=== PATIENT | female | born 1975 | race Caucasian/White ===

== ENCOUNTER 2021-08-14 10:32 | Emergency (ER) | payer SELFPAY ==
[2021-08-14 10:33] VITALS: BP 160/84; PULSE 93; RESP 16; TEMP 37; O2SAT 99; BMI 21.7
--- NOTE | 2021-08-14 11:16 | RAD_ITS ---
STUDY: X-RAY - RIGHT KNEE REASON FOR EXAM: Female, 46 years old. Injury/Pain TECHNIQUE: 4 view(s) of the knee. COMPARISON: None. FINDINGS: Normal visualized distal femur. Normal visualized proximal tibia and fibula. Normal proximal tibiofibular articulation. Normal medial femorotibial compartment. Normal lateral femorotibial compartment. Normal patellofemoral articulation. The soft tissue structures are unremarkable. RAD/Knee 4 or More Views IMPRESSION: Normal x-ray examination of the knee. Electronically Signed: Farhan Doyle MD at 12:21 EST ,
[2021-08-14] MEDS: HYDROcodone Bitartrate/Apap 5/325 Tablet PO (12:53)
--- NOTE | 2021-08-14 13:16 | EDS_ITS ---
HPI History of Present Illness HPI Narrative: Patient presents with right knee pain that began after a fall today. Patient states she slipped on the ice and her right knee hyperflexed and was under her when she fell. Patient states the pain is sharp, stabbing, and throbbing. Patient states her pain is worse with weightbearing. Patient states she has been unable to bear any weight since the fall. Patient states nothing seems to help with the pain. Patient denies any paresthesias or weakness. Patient denies any other injuries. Patient denies any head injury or loss of consciousness. Chief Complaint: Lower Extremity Injury Informant: patient Occured/Mechanism Mechanism/Context: Yes fall Onset/Context/Timing Onset: Today Context: Sudden Onset Timing: Continuous Quality of Pain: Sharp, Stabbing and Throbbing Location: Right knee Worsened by: Weightbearing and movement Relieved by: Nothing Associated Symptoms Associated Symptoms: Negative for Parasthesia, Weakness and Loss of Funtion PFSH PFSH Medical History (Updated 08/14/21 @ 18:[address] Sanju Shi DO) Hypertension Medical History no medical history Home Medications hydrocodone-acetaminophen 1 tab PO Q6H PRN PRN 3 Days #10 tablet 08/14/21 [Rx Last Taken Unknown] Allergy/AdvReac Type Severity Reaction Status Date / Time morphine Allergy Hives Verified 08/14/21 10:44 nitrofurantoin Allergy Hives Verified 08/14/21 10:44 [From Macrobid] Family History no significant family his Surgical History (Updated 08/14/21 @ 18:[address] Sanju Shi DO) History of back surgery Surgical History no surgical history Social History Smoking Status: Current every day smoker tobacco type: cigarettes ROS ROS ED Constitutional Constitutional ED: Denies chills or fever(s) Eyes Eyes: Denies blurry vision or change in vision ENT ENT ED: Reports rhinorrhea; Denies sore throat Cardiovascular Cardiovascular: Denies chest pain or palpitations Respiratory/Chest Respiratory/Chest: Denies cough or dyspnea Gastrointestinal Gastrointestinal: Denies nausea or vomiting Genitourinary Genitourinary ED: Denies dysuria or hematuria Musculoskeletal Musculoskeletal: Denies back pain or neck pain Integumentary Denies abscess or rash Neurologic Neurologic: Denies headache(s) or weakness Allergic/Immunologic Allergic/Immunologic ED: Denies mouth swelling or urticaria EXAM Physical Exam Const Vital Signs: 08/14/21 10:33 08/14/21 13:40 Temperature 98.6 F 98.4 F Temperature Source Oral Pulse Rate 93 90 Respiratory Rate 16 18 Blood Pressure 160/84 H 142/78 H Blood Pressure Mean 109 Pulse Ox 99 99 Oxygen Delivery Method Room Air Positive well nourished and well developed General Appearance ED: well developed and NAD HEENT Reports moist mucous membranes Neck full ROM and supple Extremity Extremity Narrative: There is tenderness over the anterior aspect of the right knee. There is also tenderness of the medial aspect of the right knee. There is no effusion. There is a superficial abrasion over the anteromedial aspect of the right knee. Range of motion was limited in all motions of the right knee secondary to pain. Extensor mechanism is intact. There is no laxity appreciated however, there is a lot of guarding on exam. There is good pedal pulse noted. Sensation was intact to light touch bilaterally in the lower extremities. Strength is 5/5 bilaterally in the lower extremities. Neuro oriented x3, CN's II-XII intact bilaterally, moves all extremities and no sensory deficits noted Sensorium / Orientation: alert Motor Exam: strength 5/5 throughout Psych mental status grossly normal MDM MDM MDM Narrative Medical decision making narrative: X-rays of the right knee were obtained. There are 4 views. On my interpretation, there is no acute fracture. There is no dislocation. There is no soft tissue swelling. There is no effusion noted. Radiologist also interpreted the x-rays and agrees. Patient was given a dose of [place] here. Patient was given a knee immobilizer. Patient was given crutches. Patient was instructed to ice and elevate her right knee. Patient was instructed to follow-up with her primary care physician in 3 to 5 days. Patient understood and was agreeable with the plan. All questions were answered. Radiography Diagnostic Testing: Clinical Impression(s) from Imaging Studies Knee X-Ray 08/14/21 11:16 IMPRESSION: Normal x-ray examination of the knee. Electronically Signed: Farhan Doyle MD at 12:21 EST , Discharge Plan Triage Chief Complaint: Lower Extremity Injury ED Provider: Sanju Shi Dx/Rx/DC Orders Clinical Impression: Sprain of right knee Instructions: ED Knee Sprain Prescriptions: New hydrocodone-acetaminophen [hydrocodone-acetaminophen] 1 TABLET tablet 1 tab PO Q6H PRN PRN (Reason: Pain) 3 Days Qty: 10 RF: 0 Referrals: RICHIE HUNT [Other] - 3-5 Days Disposition Disposition: Home, Self Care Discharge Date/Time: 08/14/21 13:41
[2021-08-14 13:40] VITALS: BP 142/78; PULSE 90; RESP 18; TEMP 36.9; O2SAT 99
== END 2021-08-14 13:41 | disposition home or self-care (01) ==
PROVIDERS: Emergency Provider Emergency Medicine; Visit Provider Emergency Medicine
DX: S83.91XA Sprain of unspecified site of right knee, initial encounter (principal); F17.210 Nicotine dependence, cigarettes, uncomplicated; W00.9XXA Unspecified fall due to ice and snow, initial encounter
CPT/HCPCS: 73564; 99285

== ENCOUNTER → 2022-10-07 | Outpatient (CLI) | payer BC, SELFPAY | END | disposition home or self-care (01) | LOC: LABSPEC 15:10 | PROVIDERS: Referring Provider Otolaryngology; Visit Provider Otolaryngology | DX: J32.8 Other chronic sinusitis (principal) | CPT/HCPCS: 87070; 87205 ==

== ENCOUNTER 2022-10-15 13:09 | Emergency (ER) | payer BC, SELFPAY ==
[2022-10-15 13:10] VITALS: BP 162/83; PULSE 100; RESP 18; TEMP 36.1; O2SAT 100; BMI 18.6
--- NOTE | 2022-10-15 14:46 | ED.VIS.LOWEX ---
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 She is presenting with worsening left hip pain and difficulty walking because of this. Has taken some Tylenol today with no relief of her symptoms. Notes the pain has been worsening for the past week. Denies any injury or falls. Notes she does do a lot of heavy lifting and twisting associated with work. Denies any new numbness or tingling. Denies any urinary symptoms. [place] any fever or chills. Denies associated rash. No other complaints at this time [facility] Medical History Hypertension Home Medications hydrocodone-acetaminophen 5-325mg 5mg-325mg 1 tab PO Q6H PRN PRN Pain 3 days #10 TABLETS 08/14/21 [Rx Last Taken Unknown] prednisone 20 mg tablet 40 mg PO DAILY #10 tabs 10/15/22 [Rx Last Taken Unknown] Allergy/AdvReac Type Severity Reaction Status Date / Time morphine Allergy Hives Verified 10/15/22 13:12 nitrofurantoin Allergy Hives Verified 10/15/22 13:12 [From Macrobid] Surgical History History of back surgery Social History Smoking Status: Current every day smoker tobacco type: cigarettes ROS ROS ED Constitutional Constitutional ED: Denies chills or fever(s) Eyes Eyes: Denies change in vision Respiratory/Chest Respiratory/Chest: Denies cough Gastrointestinal Gastrointestinal: Denies abdominal pain, diarrhea, nausea or vomiting Genitourinary Genitourinary ED: Denies dysuria or urinary frequency Musculoskeletal Musculoskeletal: Reports other Details: left hip pain Integumentary Denies rash Neurologic Neurologic: Reports paresthesias LUE (chronic) Psychiatric Psychiatric: Denies anxiety EXAM Physical Exam Const Vital Signs: 10/15/22 13:10 Temperature 97 F L Temperature Source Temporal Pulse Rate 100 Respiratory Rate 18 Blood Pressure 162/83 H Blood Pressure Mean 109 Pulse Ox 100 Oxygen Delivery Method Room Air Positive well nourished and well developed General Appearance ED: well developed and NAD HEENT Reports moist mucous membranes; Denies other Negative for other Eyes PERRL Neck supple Chest Wall inspection of chest normal Resp normal respiratory effort and clear to auscultation bilaterally Cardio regular rate and regular rhythm Cardio Narrative: 2= PT pulses GI non-tender and non-distended Extremity normal to inspection Extremity Narrative: No obvious deformity. No peripheral edema. Pain with palpation of the left greater trochanter and with range of motion of the hip. Normal range of motion of the knee. Pain does not radiate with this. Neuro oriented x3 and moves all extremities Neuro Narrative: Chronic paresthesias of the left lower extremity, no acute change for patient Sensorium / Orientation: alert Motor Exam: Negative for general weakness Psych mental status grossly normal Skin Lesions: no lesions MDM MDM MDM Narrative Medical decision making narrative: Patient evaluated for atraumatic left hip pain. Differential includes occult fracture, hip strain and bursitis. Will obtain an x-ray. She has good distal pulses. No acute neurologic symptoms. She does not have any edema or risk factors for DVT and I do not think venous duplex is indicated at this time. No symptoms consistent with cauda equina syndrome. X-ray interpreted myself as well as radiology does not show any acute process. Patient will be ambulated in the ER. Will be treated conservatively as a bursitis. Over the is on steroids. Given a work note so she can rest over the weekend before returning to work on Tuesday. Counseled to use ice. Does have an orthopedist that she will follow-up with. Counseled to continue taking Tylenol and only take ibuprofen for breakthrough pain while she is on steroids. Patient discharged home in stable condition. Radiography Diagnostic Testing: Clinical Impression(s) from Imaging Studies Hip/Pelvis X-Ray 10/15/22 14:55 IMPRESSION: No evidence of acute fracture or dislocation. If patient has nonweightbearing recommend MRI imaging to exclude occult findings. Electronically Signed: Trey Wyman DO at 15:11 EDT , Discharge Plan Triage Chief Complaint: Lower Extremity Injury ED Provider: Amy Sen Dx/Rx/DC Orders Clinical Impression: Bursitis of left hip Instructions: ED Bursitis Prescriptions: New prednisone 20 mg tablet 40 mg PO DAILY Qty: 10 0RF No Action hydrocodone-acetaminophen [hydrocodone-acetaminophen] 1 TABLET tablet 1 tab PO Q6H PRN PRN (Reason: Pain) 3 Days Qty: 10 0RF Primary Care Provider: NOT,DEFINED Referrals: NOT,DEFINED [Primary Care Provider] - Activity Restrictions/Additional Instructions: Ice the area. Follow-up with your orthopedist. Take Tylenol regularly and then ibuprofen for breakthrough pain. Disposition Disposition: Home, Self Care
--- NOTE | 2022-10-15 14:55 | RAD_ITS ---
STUDY: X-RAY - PELVIS AND LEFT HIP REASON FOR EXAM: Female, 47 years old. pain TECHNIQUE: 3 views of the pelvis and hip. COMPARISON: None. FINDINGS: There is a non-specific bowel gas pattern. Normal visualized soft tissue structures. Normal bilateral iliac wings, sacroiliac joints and visualized sacrum. Normal bilateral superior and inferior pubic rami. Normal pubic symphysis. Normal bilateral ischial tuberosities. Normal visualized femoral head. Normal acetabulum. There is mild articular joint space narrowing of the hip. RAD/HIP, UNI W/ Pelvis 2-3 Views IMPRESSION: No evidence of acute fracture or dislocation. If patient has nonweightbearing recommend MRI imaging to exclude occult findings. Electronically Signed: Trey Wyman DO at 15:11 EDT ,
[2022-10-15] MEDS: Ibuprofen 200 MG Tablet 400 MG PO (15:40)
== END 2022-10-15 15:58 | disposition home or self-care (01) ==
PROVIDERS: Emergency Provider Emergency Medicine; Visit Provider Emergency Medicine
DX: M70.72 Other bursitis of hip, left hip (principal); F17.210 Nicotine dependence, cigarettes, uncomplicated
CPT/HCPCS: 73502; 99282

== ENCOUNTER 2023-02-11 12:24 | Emergency (ER) | payer BC, SELFPAY ==
[2023-02-11 12:25] VITALS: BP 169/88; PULSE 110; RESP 18; TEMP 36.1; O2SAT 97; BMI 20.2
== END 2023-02-11 13:34 | disposition left against medical advice (07) ==
LOC: ED 13:41
DX: Z53.21 Procedure and treatment not carried out due to patient leaving prior to being seen by health care provider (principal)

== ENCOUNTER 2023-08-02 22:20 | Emergency (ER) | payer MEDICAID, SELFPAY ==
[2023-08-02 22:22] VITALS: BP 165/94; PULSE 78; RESP 16; TEMP 36.5; O2SAT 100; BMI 20.1
[2023-08-02 22:24] VITALS: BP 165/94; PULSE 78; RESP 16; TEMP 36.5; O2SAT 100
--- OUTSIDE RECORDS SUMMARY | 2023-08-02 22:39 | XMS RPT_ITS | CCD ---
Author Name Unknown Address [address] [place] [address] Organization [facility] Care Team Providers Care Bin Packer Name Role Phone CARMEN UMAÑA Referring Unavailable NOLAN FAIRBANKS (PAC) Referring Unavaila Mark Buchanan Primary Care Provider Paulino MORALES Richie N Primary Care Provider Mark Mancilla MD Primary Care Provider Paulino MORALES, Richie N Primary Care Provider Paulino MORALES, Richie N Primary Care Provider [phone] [place] CARMEN, Richie N Primary Care Provider [phone] MIKE IBRAHIM Attending Unavaila ble PAULINO, RICHIE N Primary Care Unavailable PAULINO, RICHIE N Primary Care Unavailable MIKE IBRAHIM Attending Unavaila ble PAULINO, RICHIE N Primary Care Unavailable PAULINO, RICHIE N Primary Care Unavailable PAULINO, RICHIE N Referring Unavailable PAULINO, RICHIE N Primary Care Unavailable PAULINO, RICHIE N Referring Unavailable PAULINO, RICHIE N Primary Care Unavailable PAULINO, RICHIE N Referring Unavailable PAULINO, RICHIE N Primary Care Unavailable PAULINO, RICHIE N Attending Unavailable PAULINO, RICHIE N Primary Care Unavailable PAULINO, RICHIE N Referring Unavailable PAULINO, RICHIE N Attending Unavailable PAULINO, RICHIE N Primary Care Unavailable PAULINO, RICHIE N Referring Unavailable PAULINO, RICHIE N Attending Unavailable PAULINO, RICHIE N Primary Care Unavailable PAULINO, RICHIE N Primary Care Unavailable RICHIE BOB Attending Unavailable RICHIE BOB Primary Care Unavailable Allergies Allergy Classification Reported Allergen(s) Allergy Type Date of Onset Reaction(s) Facility (20 sources) levoFLOXacin; Translations: [LEVOFLOXACIN] Drug Allergy 07-19-19 15 Shortness Of Breath [facility] Repository (20 sources) Morphine; Translations: [MORPHINE] Drug Allergy 11-22-19 13 [facility] Repository (18 sources) Seasonal allergy; Translations: [SEASONAL ALLERGIES] Propensity to adverse reactions (disorder) 03-16-20 16 Unknown [facility] Repository (18 sources) NITROFURANTOIN MONOHYD/M-CRYST; Translations: [NITROFURANTOIN MONOHYD/M-CRYST] Propensity to adverse reactions to drug (disorder) 11-22-19 13 [facility] Repository (8 sources) Nitrofurantoin Drug Allergy 06-05-20 15 [place], [place] (8 sources) Morphine And Related Propensity to adverse reactions to drug 06-05-20 15 [place] (1 source) Other Propensity to adverse reactions 10-02-19 16 [place] (3 sources) Lisdexamfetamine; Translations: [LISDEXAMFETAMINE] Drug Allergy 08-02-19 23 Other: See Comments [facility] Work Phone: Medications Current Medications Medication Drug Class(es) Dates Sig (Normalized) Sig (Original) acetaminophen 500 mg oral tablet (6 sources) Start: 01-27-2022 acetaminophen (TYLENOL) tablet 1,000 mg Completed/Discontinued Medications Medication Drug Class(es) Dates Sig (Normalized) Sig (Original) acetaminophen 325 mg / oxyCODONE hydrochloride 5 mg oral tablet (6 sources) Opioid Agonist Start: 04-30-2020 End: 04-30-2020 oxyCODONE-acetamin ophen (PERCOCET) 5-325 MG per tablet 1 tablet Problems Active Problems Problem Classification Problem Date Documented Da te Episodic/Chronic Asthma (15 sources) Asthma; Translations: [Unspecified asthma, uncomplicated] 03-06-2019 Chronic Attention-deficit, conduct, and disruptive behavior disorders (20 sources) Attention deficit hyperactivity disorder; Translations: [Attention-deficit hyperactivity disorder, unspecified type] 06-29-2016 Chronic Attention-deficit, conduct, and disruptive behavior disorders (1 source) Attention-deficit hyperactivity disorder, unspecified type; Translations: [Attention deficit hyperactivity disorder (ADHD), unspecified ADHD type] Onset: 06-29-2016 Chronic Essential hypertension (19 sources) Hypertensive disorder; Translations: [Essential (primary) hypertension] Onset: 08-09-2018 08-09-2018 Chronic Genitourinary symptoms and ill-defined conditions (8 sources) Female stress incontinence; Translations: [Stress incontinence (female) (male)] Onset: 10-02-2015 10-02-2015 Chronic Immunizations and screening for infectious disease (2 sources) Patient encounter status; Translations: [Encounter for immunization] Episodic Inflammatory diseases of female pelvic organs (1 source) Acute vaginitis; Translations: [Acute vaginitis] 05-16-2023 Episodic Influenza (1 source) Influenza due to unidentified influenza virus with other respiratory manifestations; Translations: [Influenza] Onset: 05-21-2023 Episodic Menopausal disorders (8 sources) Menopausal flushing; Translations: [Menopausal and female climacteric states] Onset: 01-01-2016 01-01-2016 Chronic Mycoses (1 source) Candidiasis of vagina; Translations: [Vaginal yeast infection] 02-08-2023 Episodic Other acquired deformities (1 source) Spondylolisthesis, lumbar region; Translations: [Spondylolisthesis, lumbar region] Onset: 05-24-2018 Episodic Other acquired deformities (1 source) Spondylolysis; Translations: [Spondylolysis, lumbar region] Episodic Other acquired deformities (5 sources) Lumbar spondylolisthesis; Translations: [Spondylolisthesis of lumbar region] Onset: 04-11-2020 04-11-2020 Other bone disease and musculoskeletal deformities (1 source) Osteopenia; Translations: [Other specified disorders of bone density and structure, unspecified site] Episodic Other circulatory disease (1 source) Elevated blood-pressure reading without diagnosis of hypertension; Translations: [Elevated blood-pressure reading, without diagnosis of hypertension] 05-16-2023 Episodic Other connective tissue disease (1 source) History of lumbar fusion; Translations: [Arthrodesis status] Episodic Other female genital disorders (8 sources) Abnormal uterine bleeding; Translations: [Abnormal uterine and vaginal bleeding, unspecified] Onset: 10-02-2015 10-02-2015 Chronic Other nervous system disorders (1 source) Other chronic pain; Translations: [Other chronic pain] Onset: 05-02-2018 Chronic Other upper respiratory disease (15 sources) Allergic rhinitis; Translations: [Allergic rhinitis, unspecified] Onset: 02-09-2017 02-09-2017 Chronic Other upper respiratory disease (1 source) Lesion of nose; Translations: [Other specified disorders of nose and nasal sinuses] 05-16-2023 Episodic Other upper respiratory infections (5 sources) Recurrent sinusitis; Translations: [Chronic sinusitis, unspecified] Onset: 05-16-2023 Chronic Residual codes; unclassified (6 sources) Tobacco user; Translations: [Tobacco abuse] Onset: 10-02-2015 10-02-2015 Chronic Residual codes; unclassified (3 sources) Contact with and (suspected) exposure to mold (toxic); Translations: [Contact with and (suspected) exposure to mold] Onset: 05-16-2023 02-08-2023 Episodic Spondylosis; intervertebral disc disorders; other back problems (15 sources) Degeneration of lumbar intervertebral disc; Translations: [Other intervertebral disc degeneration, lumbar region] Onset: 02-09-2017 05-24-2018 Chronic Substance-related disorders (1 source) Nicotine dependence, unspecified, uncomplicated; Translations: [Tobacco use disorder] Onset: 02-17-2023 Chronic Superficial injury; contusion (3 sources) Contusion of lower back; Translations: [Contusion of lower back and pelvis, initial encounter] Onset: 04-05-2023 Episodic Viral infection (16 sources) Herpes simplex; Translations: [Herpesviral infection, unspecified] 03-01-2018 Episodic Past or Other Problems Problem Classification Problem Date Documented Da te Episodic/Chronic Abdominal pain (8 sources) Vaginal pain; Translations: [Pelvic and perineal pain] Onset: 04-26-2016 04-26-2016 Episodic Other acquired deformities (18 sources) Lumbar spondylolisthesis; Translations: [Spondylolisthesis, lumbar region] Onset: 02-28-2018 05-24-2018 Episodic Other bone disease and musculoskeletal deformities (1 source) Other specified disorders of bone density and structure, unspecified site; Translations: [Osteopenia, unspecified location] Onset: 11-08-2022 Episodic Other lower respiratory disease (1 source) Shortness of breath; Translations: [SOB (shortness of breath)] Onset: 11-08-2022 Episodic Other nervous system disorders (2 sources) Postoperative pain ; Translations: [Postoperative pain after spinal surgery] Episodic Other nervous system disorders (1 source) Paresthesia; Translations: [Paresthesias] Episodic Other screening for suspected conditions (not mental disorders or infectious disease) (2 sources) Cancer cervix screening status; Translations: [Encounter for screening for malignant neoplasm of cervix] Onset: 11-08-2022 05-16-2023 Episodic Other skin disorders (15 sources) Epidermoid cyst; Translations: [Epidermal cyst] Onset: 08-25-2015 08-25-2015 Episodic Other upper respiratory disease (15 sources) Deviated nasal septum; Translations: [Deviated nasal septum] Onset: 02-09-2017 02-09-2017 Episodic Other upper respiratory infections (1 source) Acute sphenoidal sinusitis, unspecified; Translations: [Acute sphenoidal sinusitis, recurrence not specified] Onset: 02-17-2023 Episodic Pathological fracture (16 sources) Fracture of lumbar spine; Translations: [Pathological fracture, other site, initial encounter for fracture] Onset: 06-20-2017 03-01-2018 Episodic Residual codes; unclassified (5 sources) Pain; Translations: [Pain, unspecified] Onset: 04-17-2020 04-17-2020 Episodic Residual codes; unclassified (2 sources) Tobacco user; Translations: [Tobacco use] Onset: 10-02-2015 10-02-2015 Episodic Spondylosis; intervertebral disc disorders; other back problems (20 sources) Pain in thoracic spine; Translations: [Lumbosacral radiculopathy] Onset: 02-28-2018 04-17-2020 Episodic Results Test Name Value Interpretation Reference Range Facil ity Vital Signs Date Time Vital Sign Value Performing Clinician Facility 05-16-2023 13:35-0500 Diastolic blood pressure 88 mm[Hg] Richie MENCHACA-Anthony Work Phone: [facility] 05-16-2023 13:35-0500 Systolic blood pressure 158 mm[Hg] Richie MENCHACA-Anthony Work Phone: [facility] 05-16-2023 12:44-0500 Body height 170.2 cm Richie [place] PA-C Work Phone: [facility] 05-16-2023 12:44-0500 Body temperature 97.3 [degF] Richie Paulino PA-C Work Phone: [facility] 05-16-2023 12:44-0500 Body weight 55.5 kg Richie Paulino PA-C Work Phone: [facility] 05-16-2023 12:44-0500 Heart rate 95 /min Richie Paulino PA-C Work Phone: [facility] 05-16-2023 12:44-0500 SaO2% (BldA) [Mass fraction] 100 % Richie [place] PA-C Work Phone: [facility] 07-14-2022 15:34-0500 Diastolic blood pressure 62 mm[Hg] Richie [place] PA-C Work Phone: [facility] 07-14-2022 15:34-0500 Systolic blood pressure 132 mm[Hg] Richie Paulino PA-C Work Phone: [facility] 07-14-2022 15:19-0500 Body height 170.2 cm Richie [place] PA-C Work Phone: [facility] 07-14-2022 15:19-0500 Body weight 53.07 kg Richie [place] PA-C Work Phone: [facility] 07-14-2022 15:19-0500 Heart rate 92 /min Richie Paulino PA-C Work Phone: [facility] 07-14-2022 15:19-0500 SaO2% (BldA) [Mass fraction] 99 % Richie Paulino PA-C Work Phone: [facility] 01-27-2022 08:58-0400 Diastolic blood pressure 80 mm[Hg] Brandon Fiore MD Work Phone: [facility] 01-27-2022 08:58-0400 Heart rate 85 /min Brandon Fiore MD Work Phone: [facility] 01-27-2022 08:58-0400 Respiratory rate 18 /min Brandon Fiore MD Work Phone: [facility] 01-27-2022 08:58-0400 SaO2% (BldA) [Mass fraction] 100 % Brandon Fiore MD Work Phone: [facility] 01-27-2022 08:58-0400 Systolic blood pressure 110 mm[Hg] Brandon Fiore MD Work Phone: [facility] 01-27-2022 07:24-0400 Body temperature 97.81 [degF] Brandon Fiore MD Work Phone: [facility] 12-24-2021 10:40-0400 Body weight 58.97 kg Richie Paulino PA-C Work Phone: [facility] 12-24-2021 10:40-0400 Diastolic blood pressure 80 mm[Hg] Richie [place] PA-C Work Phone: [facility] 12-24-2021 10:40-0400 Heart rate 73 /min Richie Paulino PA-C Work Phone: [facility] 12-24-2021 10:40-0400 SaO2% (BldA) [Mass fraction] 99 % Richie Paulino PA-C Work Phone: [facility] 12-24-2021 10:40-0400 Systolic blood pressure 124 mm[Hg] Richie Paulino PA-C Work Phone: [facility] 04-30-2020 01:20-0500 BMI (Body Mass Index) 21.14 kg/m2 Gloria Metzger [facility], [place] 04-30-2020 01:20-0500 Body Temperature 98.4 [degF] [facility] [place] 04-30-2020 01:20-0500 Body weight 61.24 kg Gloria [facility] , [place] 04-30-2020 01:20-0500 BP Diastolic 77 mm[Hg] [facility] [place] [facility] [place] 04-30-2020 01:20-0500 BP Systolic 134 mm[Hg] [facility] [place] [facility] [place] 04-30-2020 01:20-0500 Height 170.2 cm [facility] [place] 04-30-2020 01:20-0500 Pulse (Heart Rate) 94 /min [facility] [place] [place] 04-30-2020 01:20-0500 Pulse Oximetry 100 % [facility] [place] [facility] [place] 04-30-2020 01:20-0500 Respiratory Rate 18 /min [facility] [place] 04-18-2020 06:00-0400 Body Temperature 98.01 [degF] [facility] [place] 04-18-2020 06:00-0400 BP Diastolic 77 mm[Hg] Tono [facility] , [place] 04-18-2020 06:00-0400 BP Systolic 138 mm[Hg] Tono [facility] , [place] 04-18-2020 06:00-0400 Pulse (Heart Rate) 93 /min [facility] [place] 04-18-2020 06:00-0400 Pulse Oximetry 100 % [facility] [place] 04-18-2020 06:00-0400 Respiratory Rate 20 /min [facility] [place] 04-17-2020 01:31-0400 BMI (Body Mass Index) 21.79 kg/m2 Tono Chris [facility], [place] 04-17-2020 01:31-0400 Body weight 61.24 kg [facility] [place] 04-17-2020 01:31-0400 Height 167.6 cm [facility] [place] 04-15-2020 05:50-0400 BP Diastolic 61 mm[Hg] JONELLE [facility] , [place] 04-15-2020 05:50-0400 BP Systolic 111 mm[Hg] [facility] , [place] 04-15-2020 05:50-0400 Pulse (Heart Rate) 118 /min NA [facility] [place] 04-15-2020 05:50-0400 Pulse Oximetry 99 % NA R[facility] [place] , [place] 04-15-2020 05:50-0400 Respiratory Rate 16 /min NA [facility] [place] 04-15-2020 02:43-0400 BMI (Body Mass Index) 21.14 kg/m2 NA Rolly Kaba [facility] [place], [place] 04-15-2020 02:43-0400 Body Temperature 99.1 [degF] NA [facility] [place] 04-15-2020 02:43-0400 Body weight 61.24 kg NA [facility] [place] 04-15-2020 02:43-0400 Height 170.2 cm [facility] [place] 04-14-2020 09:16-0400 Body Temperature 98.91 [degF] [facility] [place] 04-14-2020 09:16-0400 BP Diastolic 72 mm[Hg] [facility] [place] 04-14-2020 09:16-0400 BP Systolic 124 mm[Hg] [facility] [place] 04-14-2020 09:16-0400 Pulse (Heart Rate) 111 /min [facility] [place] 04-14-2020 09:16-0400 Pulse Oximetry 100 % [facility] [place] 04-14-2020 09:16-0400 Respiratory Rate 14 /min [facility] [place] 04-11-2020 09:40-0400 BMI (Body Mass Index) 21.14 kg/m2 [facility] [place] [place] 04-11-2020 09:40-0400 Body weight 61.24 kg [facility] [place] 04-11-2020 09:40-0400 Height 170.2 cm [facility] [place] 04-04-2020 14:54-0400 BMI (Body Mass Index) 21.14 kg/m2 Marcelo Kaba [facility], [place] 04-04-2020 14:54-0400 Body Temperature 98.01 [degF] Marcel[facility] [place] 04-04-2020 14:54-0400 Body weight 61.24 kg Marcelo Kaba [facility] [place] , [place] 04-04-2020 14:54-0400 BP Diastolic 84 mm[Hg] [facility] [place] [facility] [place] 04-04-2020 14:54-0400 BP Systolic 124 mm[Hg] [facility] [place] , [place] 04-04-2020 14:54-0400 Height 170.2 cm [facility] [place] , [place] 04-04-2020 14:54-0400 Pulse (Heart Rate) 93 /min Marcelo Kaba [facility] [place], [place] 04-04-2020 14:54-0400 Pulse Oximetry 98 % Marcelo Kaba [facility] , [place] 04-04-2020 14:54-0400 Respiratory Rate 16 /min Marcelo Kaba [address] [place] , [place] 03-17-2020 08:31-0400 BP Diastolic 92 mm[Hg] Tono [facility] [place] , [place] 03-17-2020 08:31-0400 BP Systolic 140 mm[Hg] Tono Velardeowski [facility] [place] , [place] 03-17-2020 08:31-0400 Pulse (Heart Rate) 88 /min [facility]ono [facility] [place], [place] 03-17-2020 08:31-0400 Pulse Oximetry 97 % [facility] [place] 03-17-2020 08:31-0400 Respiratory Rate 20 /min [facility] [place] 03-17-2020 07:33-0400 BMI (Body Mass Index) 21.14 kg/m2 Tono Kaba [facility] [place], [place] 03-17-2020 07:33-0400 Body Temperature 98.2 [degF] [facility] [place] 03-17-2020 07:33-0400 Body weight 61.24 kg Tono Kaba [facility] [place] , [place] 03-17-2020 07:33-0400 Height 170.2 cm Tono Kaba [facility] , [place] Encounters Encounter Date Encounter Type Care Provider Facility Start: 07-28-2023 Refill Richie chau PA-C Work Phone: Family Medicine [facility] Procedures Date Procedure Procedure Detail Performing Clinician Start: 11-08-2022 Lipid 1996 panel - S nataliya or Plasma Richie Bob PA-C Work Phone: Start: 11-08-2022 Mammography Richie hensley PA-C Work Phone: Start: 07-14-2022 PFIZER-BIONTECH COVI D-19 BIVALENT BOOSTER VACCINE, AGE 12+ YR Richie Bob PA-C Work Phone: Start: 01-27-2022 Mri spinal canal lum bar w/o contrast material Brandon Fiore MD Work Phone: Start: 01-27-2022 Urnls dip stick/tabl et rgnt auto w/o microscopy Brandon Fiore MD Work Phone: Start: 01-27-2022 Radex spine lumbosac ral 2/3 views Brandon Fiore MD Work Phone: Start: 01-27-2022 Basic metabolic pane l calcium total Brandon Fiore MD Work Phone: Start: 12-24-2021 PFIZER-BIONTECH COVI D-19 VACCINE, AGE 12+ YR (JAMES TOP) Richie Bob PA-C Work Phone: Start: 08-19-2021 Adult depression scr eening assessment Richie Bob PA-C Work Phone: Start: 04-30-2020 Radex spine lumbosac ral minimum 4 views Gloria Metzger Work Phone: Start: 04-22-2020 Microscopic examinat ion of blood, culture Plan of Treatment Date Care Activity Detail Author Start: 03-27-2029 DTaP/Tdap/Td vaccine (3 - Td or Tdap) DTaP/Tdap/Td vaccine (3 - Td or Tdap) [facility] Start: 03-27-2029 DTaP/Tdap/Td vaccine (3 - Td) DTaP/Tdap/Td vaccine (3 - Td) [facility] [place] Start: 03-27-2029 Urine microalbumin profile [facility] Start: 05-16-2028 Screening for malign ant neoplasm of cervix [facility] Start: 11-09-2027 Lipid 1996 panel - S nataliya or Plasma Lipid Screening [facility] Start: 11-09-2027 Lipid panel Lipid Screening [facility] Start: 11-09-2027 LIPID SCREEN LIPID SCREEN [facility] Start: 08-19-2026 LIPID SCREEN LIPID SCREEN [facility] Start: 02-06-2026 Cologuard (FIT-DNA) Cologuard (FIT-D NA) [facility] Start: 02-06-2026 Colorectal Cancer Screening Colorectal Cancer Screening [facility] Start: 02-06-2026 Screening for malign ant neoplasm of colon [facility] Start: 11-08-2025 DIABETES SCREEN DIABETES SCREEN [facility] Start: 11-08-2025 Diabetes Screening Diabetes Screenin g [facility] Start: 08-19-2024 DIABETES SCREEN DIABETES SCREEN [facility] Start: 05-16-2024 Annual PCP Team Supervisor Braiding lea Disease Visit Annual PCP Team Chronic Disease Visit [facility] Start: 02-09-2024 ANNUAL PCP TEAM JOB TRACER LEA DISEASE VISIT ANNUAL PCP TEAM CHRONIC DISEASE VISIT [facility] Start: 12-18-2023 Influenza vaccination Influenza Vacc ine (#1) [facility] Immunizations Immunization Date Immunization Notes Care Provider Kaylee ontiveros 07-14-2022 COVID-19 booster vaccine, age 12+ yr, bivalent (PFIZER-BIONTCAPPTURE) Richie [place] PA-C Work Phone: [facility] 12-24-2021 COVID-19 vaccine, ag e 12+ yr (PFIZER-BIONTECH - JAMES TOP) Richie [place] PA-C Work Phone: [facility] 08-19-2021 COVID-19 vaccine, ag e 12+ yr (PFIZER-BIONTECH - JAMES TOP) Richie Paulino PA-C Work Phone: [facility] 03-27-2019 tetanus toxoid, redu arlette diphtheria toxoid, and acellular pertussis vaccine, adsorbed Richie [place] PA-C Work Phone: [facility] 03-01-2018 influenza virus vaccine, unspecified formulation Richie Paulino PA-C Work Phone: [facility] 02-20-2009 tetanus toxoid, redu arlette diphtheria toxoid, and acellular pertussis vaccine, adsorbed Richie [place] PA-C Work Phone: [facility] Work Phone: Payers Date Payer Category Payer Medicaid MEDICAID [facility] MEDICAID [id number] 2023-Present [phone] [address] [place] [address] Medicaid [id number] 2022 Unknown [employer] PPO [id number] 2022-Present [phone] [address] [place] [address] PPO [id number] 2022 Unknown [id number] 2014 Unknown [id number] Social History Date Type Detail Facility Start: 04-12-2020 End: 07-14-2022 Tobacco smoking status NHIS Current every day smoker [place], [place] Start: 06-20-2004 History of tobacco use Cigarette Smo ker [place] Start: 04-12-2020 End: 11-07-2022 Cigarettes smoked current (pack per day) - Reported [facility] Start: 04-12-2020 End: 07-14-2022 Tobacco use and exposure Never used [place] Start: 04-12-2020 End: 05-16-2023 Alcohol intake Current drinker of alcohol (finding) [place] Start: 04-04-2020 Tobacco Comment cut down 0.25ppd [place] Start: 04-04-2020 Alcohol Comment occ. [facility] Start: 1975 Sex Assigned At Not on file [facility] Start: 01-17-2022 End: 01-27-2022 Exposure to SARS-CoV-2 (event) Not sure [facility] Start: 06-20-2004 History of tobacco use [facility]oker [facility] Start: 02-21-2020 Alcohol Comment Every other week [facility] Start: 04-30-2020 End: 01-21-2022 Tobacco smoking status NHIS Former smoker [facility] Start: 08-19-2021 History SDOH Alcohol Frequency 98 [facility] Start: 12-31-2019 History SDOH Alcohol Comment rare [facility] Start: 03-05-2020 End: 06-06-2020 History SDOH Stress 1 [facility] Start: 08-19-2021 End: 03-18-2022 History SDOH Housing Unable to Pay 3 [facility] Start: 07-03-2019 End: 07-14-2022 Tobacco Comment is down to 5 cigarettes now; used to smoke about 1ppd or more for many years [facility] Start: 12-14-2021 End: 03-26-2022 Exposure to SARS-CoV-2 (event) Unable to assess [facility] Start: 07-28-2020 History SDOH Alcohol Std Drinks 99 [facility] Work Phone: Start: 11-07-2022 End: 11-08-2022 Social connection and isolation panel [facility] In a typical week, h ow many times do you talk on the telephone with family, friends, or neighbors? Patient refused [facility] Are you now , , , , never or living with a partner? Refused [facility] (I/We) worried jose er (my/our) food would run out before (I/we) got money to buy more. DK or Refused [facility] Clinical Notes 03-23-2016 to 07-29-2023 Telephone Encounter - Richie Bob PA-C - 07/29/2023 12:48 PM ESTTelephone Encounter - Lana Blunt MA - 07/28/2023 3:33 PM ESTTelephone Encounter - Freida Vaughn - 05/27/2023 2:15 PM EST Note Date & Type Note Facility 07-29-2023 Miscellaneous Notes Has follow up on 08/03 PDMP checked and validated Last filled Vyvanse 40 mg #30 on 06/17/23 Richie Arroyo. CARMEN Bob Last OV: 05-16-2023 Next OV: none documented in this encounter [facility] 05-27-2023 Miscellaneous Notes 06/02/[address] Tovar to be rescheduled. Scheduling conflict. Patient new with ENT and can schedule with ENT provider that sees for sinus issues Called patient, no answer, lvm and mychart message. Note: needs authorized referral to schedule, created referral, currently pending. documented in this encounter [facility] 05-21-2023 Note HNO ID: [id number] Author: Note, Interface Service: ? Author Type: ? Type: Progress Notes Filed: 05/21/2023 5:53 AM Note Text: Epic Scheduled Downtime: 05/21/2023 1:00:00 AM to 05/21/2023 5:38:00 AM [facility] 05-16-2023 Note HNO ID: [id number] Author: Richie Bob PA-C Service: ? 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 Subjective Bernie Yi is a 48 year old female. KIM Keyes is here for a routine follow up on HTN, ADHD, HSV, Allergic rhinitis, and osteoporosis. She follows with: ENT - recurrent sinusitis Neurosurgery - Dr. Prasad - spondylolisthesis s/p surgical repair 03/2020 [employer] - history of cervical cancer 2010 At today's visit, she states she has been to the ER a few times. She went to the ER on 02/17 for sinusitis - had a CT scan at that visit. They gave her a short course of steroids and follow up with ENT. She has seen her ENT since this visit. She states that the Antibiotics and steroids haven't worked. She states the only thing that helps is diflucan. She uses Mucinex to help get the mucous out. She has a lot of sinus drainage - sinuses and coughing it up - it is green/yellow thick. She has pain all through her left sinus, and tingling from her left side of her head down into her sinuses/face. She is not using any nasal sprays - it just hurts. She does a saline nasal rinse and a steam inhaler - for saline mixture. She has another yeast infection vaginally. She has no itching/discharge. She denies vaginal pain/pelvic pain, bleeding. She denies dysuria/polyuria. She has an abnormal odor. She has been monitoring her BP at home - it fluctuates, sometimes in the normal range (systolic 117), but on days she drinks caffeine it is typically 150s/70s. Review of Systems All other systems reviewed and are negative. 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; PAP 2017 - negative Chronic pansinusitis s/p ENT eval 2018 - with CT scan Compression fracture of body of thoracic vertebra (HCC) DDD (degenerative disc disease), lumbar NILE (generalized anxiety disorder) Headache numbness/blurred vision Herpes simplex Hypertension Lumbar verterbral fracture, non-traumatic 2017 Nephrolithiasis Osteoporosis Osteopenia + non traumatic vertebral fracture Palpitations s/p evaluation with Cardiology 2013 Pars defect of lumbar spine Seizures ([facility]) last one 2014; no longer seeing neurology Spinal stenosis of lumbar region with neurogenic claudication Spondylolisthesis of lumbar region Syncope s/p evaluation Cardiology 2013 Past Surgical History: PAST SURGICAL HISTORY Procedure Laterality Date LAMINECTOMY W/O FFD > 2 VERT SEG LUMBAR 04/11/2020 Dr. Parsad:L3, L4, AND L5 LAMINECTOMIES, L3-L5 FUSION, PEDICLE SCREW FIXATION, AND USE OF MEDTRONIC HARDWAR S BALLOON,UTERINE ABLATION [id number] 2016 SINUS SURGERY HX 08/2022 balloon sinoplasty Family History: FAMILY HISTORY Problem Relation Age of Onset Lung Cancer Mother Hypertension Mother Hypertension Father other (liver failure) Brother fatty liver Allergies Daughter Allergies Son Allergies Son Breast Cancer Maternal Aunt other (ESRD) Maternal Aunt other (Liver failure) Maternal Aunt Ischemic Heart Disease Maternal Aunt Breast Cancer Paternal Aunt other (Lung cancer) Paternal Uncle Colon Cancer No Family History Social History: Social History Tobacco Use Smoking status: Every Day Packs/day: 0.50 Years: 30.00 Additional pack years: 0.00 Total pack years: 15.00 Types: Cigarettes Smokeless tobacco: Never Tobacco comments: is down to 5 cigarettes now; used to smoke about 1ppd or more for many years Vaping Use Vaping Use: Never used Substance Use Topics Alcohol use: Yes Comment: rare Drug use: No Current Medications: lisdexamfetamine (VYVANSE) 40 mg capsule, Take 1 capsule by mouth once daily for 30 days. Do not start before May 07, 2023., Disp: 30 capsule, Rfl: 0 lisdexamfetamine (VYVANSE) 10 mg capsule, Take 1 capsule by mouth once daily for 30 days. Do not start before May 07, 2023., Disp: 30 capsule, Rfl: 0 OTC NUTRITIONAL SUPPLEMENT, Rephresh Women's Probiotic, Disp: , Rfl: metoprolol succinate ER (TOPROL XL) 25 mg 24 hr tablet, Take 2 tablets by mouth once daily., Disp: 180 tablet, Rfl: 1 albuterol HFA (VENTOLIN HFA) 90 mcg/actuation inhaler, Inhale 2 Puffs as instructed every 6 hours as needed., Disp: 3 Inhaler, Rfl: 1 [DISCONTINUED] azelastine 0.1% nasal spray, Use 1 [place] in each nostril twice daily., Disp: 30 mL, Rfl: 1 [DISCONTINUED] fluconazole (DIFLUCAN) 150 mg tablet, Take 1 tablet by mouth as directed. Take 1 tablet now, Repeat in 3 days if symptoms unresolved, Disp: 2 tablet, Rfl: 0 [DISCONTINUED] cholecalciferol (VITAMIN D3) 50 mcg (2,000 unit) tablet, Take 1 tablet by mouth once daily., Disp: , Rfl: 0 [DISC (more content not included)... [facility] 05-16-2023 Instructions Richie Bob PA-C - 05/16/2023 1:16 PM EST Start Culturelle/Align once daily x14 days (probiotics) Continue nasal saline treatments Stop Decongestant medication documented in this encounter [facility] 05-16-2023 History of Presen t illness Narrative This note was created using [employer]. Subjective Bernie Yi is a 48 year old female. KIM Keyes is here for a routine follow up on HTN, ADHD, HSV, Allergic rhinitis, and osteoporosis. She follows with: ENT - recurrent sinusitis Neurosurgery - Dr. Prasad - spondylolisthesis s/p surgical repair 03/2020 [employer] DEVEL[employer] - history of cervical cancer 2010 At today's visit, she states she has been to the ER a few times. She went to the ER on 02/17 for sinusitis - had a CT scan at that visit. They gave her a short course of steroids and follow up with ENT. She has seen her ENT since this visit. She states that the Antibiotics and steroids haven't worked. She states the only thing that helps is diflucan. She uses Mucinex to help get the mucous out. She has a lot of sinus drainage - sinuses and coughing it up - it is green/yellow thick. She has pain all through her left sinus, and tingling from her left side of her head down into her sinuses/face. She is not using any nasal sprays - it just hurts. She does a saline nasal rinse and a steam inhaler - for saline mixture. She has another yeast infection vaginally. She has no itching/discharge. She denies vaginal pain/pelvic pain, bleeding. She denies dysuria/polyuria. She has an abnormal odor. She has been monitoring her BP at home - it fluctuates, sometimes in the normal range (systolic 117), but on days she drinks caffeine it is typically 150s/70s. Review of Systems All other systems reviewed and are negative. 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; PAP 2017 - negative Chronic pansinusitis s/p ENT eval 2018 - with CT scan Compression fracture of body of thoracic vertebra (HCC) DDD (degenerative disc disease), lumbar NILE (generalized anxiety disorder) Headache numbness/blurred vision Herpes simplex Hypertension Lumbar verterbral fracture, non-traumatic 2018 Nephrolithiasis Osteoporosis Osteopenia + non traumatic vertebral fracture Palpitations s/p evaluation with Cardiology 2013 Pars defect of lumbar spine Seizures (HCC) last one 2014; no longer seeing neurology Spinal stenosis of lumbar region with neurogenic claudication Spondylolisthesis of lumbar region Syncope s/p evaluation Cardiology 2013 Past Surgical History: PAST SURGICAL HISTORY Procedure Laterality Date LAMINECTOMY W/O FFD > 2 VERT SEG LUMBAR 04/11/2020 Dr. Prasad:L3, L4, AND L5 LAMINECTOMIES, L3-L5 FUSION, PEDICLE SCREW FIXATION, AND USE OF ComparioWAR S BALLOON,UTERINE ABLATION [id number] 2016 SINUS SURGERY HX 08/2022 balloon sinoplasty Family History: FAMILY HISTORY Problem Relation Age of Onset Lung Cancer Mother Hypertension Mother Hypertension Father other (liver failure) Brother fatty liver Allergies Daughter Allergies Son Allergies Son Breast Cancer Maternal Aunt other (ESRD) Maternal Aunt other (Liver failure) Maternal Aunt Ischemic Heart Disease Maternal Aunt Breast Cancer Paternal Aunt other (Lung cancer) Paternal Uncle Colon Cancer No Family History Social History: Social History Tobacco Use Smoking status: Every Day Packs/day: 0.50 Years: 30.00 Additional pack years: 0.00 Total pack years: 15.00 Types: Cigarettes Smokeless tobacco: Never Tobacco comments: is down to 5 cigarettes now; used to smoke about 1ppd or more for many years Vaping Use Vaping Use: Never used Substance Use Topics Alcohol use: Yes Comment: rare Drug use: No Current Medications: lisdexamfetamine (VYVANSE) 40 mg capsule, Take 1 capsule by mouth once daily for 30 days. Do not start before May 07, 2023., Disp: 30 capsule, Rfl: 0 lisdexamfetamine (VYVANSE) 10 mg capsule, Take 1 capsule by mouth once daily for 30 days. Do not start before May 07, 2023., Disp: 30 capsule, Rfl: 0 OTC NUTRITIONAL SUPPLEMENT, Rephresh Women's Probiotic, Disp: , Rfl: metoprolol succinate ER (TOPROL XL) 25 mg 24 hr tablet, Take 2 tablets by mouth once daily., Disp: 180 tablet, Rfl: 1 albuterol HFA (VENTOLIN HFA) 90 mcg/actuation inhaler, Inhale 2 Puffs as instructed every 6 hours as needed., Disp: 3 Inhaler, Rfl: 1 [DISCONTINUED] azelastine 0.1% nasal spray, Use 1 [place] in each nostril twice daily., Disp: 30 mL, Rfl: 1 [DISCONTINUED] fluconazole (DIFLUCAN) 150 mg tablet, Take 1 tablet by mouth as directed. Take 1 tablet now, Repeat in 3 days if symptoms unresolved, Disp: 2 tablet, Rfl: 0 [DISCONTINUED] cholecalciferol (VITAMIN D3) 50 mcg (2,000 unit) tablet, Take 1 tablet by mouth once daily., Disp: , Rfl: 0 [DISCONTINUED] acyclovir (ZOVIRAX) 400 mg tablet, Take 400 mg by mouth., Disp: , Rfl: No facility-administered encounter medications on file as of 05/16/2023. Allergies: ALLERGIES Allergen Reactions Levofloxacin Shortness of Breath Macrobid [Nitrofura* Hives Morphine Hives Seasonal Allergies Unknown Dust mites and molds verified by skin testing Vitals: BP 179/98[patient just drank a Red Bull energy drink[ Pulse 95 Temp 97.3 Ht 5' 7 (1.70m) Wt 122 lb 5.7 oz (55.5kg) SpO2 100% LMP 04/17/2014 BMI 19.16 kg/(m^2). Objective LMP 04/17/2014 Physical Exam Vitals reviewed. Exam conducted with a lifter present. Constitutional: General: She is not in acute distress. Appearance: Normal appearance. She is well-developed. She is not ill-appearing or diaphoretic. HENT: Head: Normocephalic and atraumatic. Right Ear: External ear normal. Left Ear: External ear normal. Nose: No congestion or rhinorrhea. Comments: Slit along upper border of right nostril Left nostril - small papular lesion with telangiectasias Eyes: Conjunctiva/sclera: Conjunctivae normal. Cardiovascular: Rate and Rhythm: Normal rate and regular rhythm. Heart sounds: Normal heart sounds. No murmur heard. Pulmonary: Effort: Pulmonary effort is normal. Breath sounds: Normal breath sounds. No wheezing or rales. Genitourinary: Labia: Right: No rash, tenderness or lesion. Left: No rash, tenderness or lesion. Vagina: Normal. Cervix: Normal. Uterus: Normal. Adnexa: Right adnexa normal and left adnexa normal. Musculoskeletal: Cervical back: Normal range of motion and neck supple. Lymphadenopathy: Cervical: No cervical adenopathy. Skin: General: Skin is warm and dry. Neurological: General: No focal deficit present. Mental Status: She is alert. She is not disoriented. Motor: No tremor. Gait: Gait normal. Psychiatric: Mood and Affect: Mood normal. Behavior: Behavior normal. Thought Content: Thought content normal. Judgment: Judgment normal. Comments: Pleasant, good eye contact Assessment and Plan ASSESSMENT/PLAN: 1. Chronic sinusitis, unspecified location - ICD9: 473.9, ICD10: J32.9 (primary diagnosis) S/p ENT treatment/eval outside [facility] CT sinus 02/17/2023 - left sphenoid sinus thickening - given steroids Steroids and Antibiotics do not help Notes that symptoms significantly worsened after black mold exposure, and tend to improve with Diflucan. She states she has seen ENT since her last ER visit, and that they did nothing. She has sores in her nose - given Bacitracin Advised her to see ENT at [facility] Check Molds allergen testing and CBC today Also having this shooting pain/numbness on the left side of her head - Discussed DDX of Trigeminal Neuralgia vs referred pain from her chronic sinusitis She is using nasal saline rinses - continue this Continue Mucinex Failed Astelin nasal spray Unable to tolerate other nasal sprays. May require MRI of brain updated. - [facility] - CBC + DIFF 2. Mold exposure - ICD9: V87.31, ICD10: Z77.120 Check exposure in labs Consider ID consult - [facility] - CBC + DIFF 3. Acute vaginitis - ICD9: 616.10, ICD10: N76.0 Suspect BV Low clinical suspicion of STD Will wait for test results Start Probiotics. - BACTERIAL VAGINOSIS NAAT - ALLEN/TRICHOMONAS NAAT - GONORRHEA/CHLAMYDIA NAAT 4. Sore in nose - ICD9: 478.19, ICD10: J34.89 Given Bacitracin 5. Attention deficit hyperactivity disorder (ADHD), unspecified ADHD type - ICD9: 314.01, ICD10: F90.9 BP is too high today - see below PDMP checked and validated Last filled Vyvanse 40 mg #30 on 05/07/23 Last filled Vyvanse 10 mg #30 on 05/08/23 Follow up again for BP check prior to refill 6. Elevated blood pressure reading without diagnosis of hypertension - ICD9: 796.2, ICD10: R03.0 - Recommend home blood pressure monitoring, to bring results in on next visit - STOP Decongestants - Stop Caffeine Discussed re-starting BP medication - was on Verapamil for a long time for migraine prevention Will follow up within 2-3 weeks for re-check Continue home monitoring Discussed Vyvanse is not safe to use with uncontrolled HTN due to risks of heart attack/stroke - Goal of BP <130/80 7. Screening for cervical cancer - ICD9: V76.2, ICD10: Z12.4 - Completed pelvic and breast exam - Completed pap exam - check GC/Chlamydia - check HPV - Set up for mammogram, yearly mammogram recommended - Encouraged monthly BSE - Follow up for annual exam in one year. - PAP TEST Yearly: October Richie Bob PA-C documented in this encounter [facility] 02-08-2023 Note HNO ID: [id number] Author: Richie Bob PA-C Service: ? 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 It required patient-provider interaction for the medical decision making as documented below. I have communicated my name and active licensure. The patient's identity and physical location were verified at the time of this visit. Either the patient or their legal visitor services representative has been informed of the risks and benefits of -- and alternatives to -- treatment through a remote evaluation and consents to proceed with the evaluation remotely. Bernie Yi is a 47 year old female seen for a 3 month follow up on HTN, ADHD, HSV, Allergic rhinitis, and osteoporosis. She follows with: ENT - recurrent sinusitis Neurosurgery - Dr. Prasad - spondylolisthesis s/p surgical repair 03/2020 [employer] DEVELOPER - history of cervical cancer 2010 At her last visit, she was switched from Adderall back to Vyvanse due to supply issues. She was also dealing with black mold in her house. At today's visit, she is doing well, she has no concerns. She still has a sinus infection that won't go away. She is seeing the ENT - outside [facility]. He is doing scopes. Saw him about 3 -4 weeks ago. She had a procedure - it improved. Then once she got the black mold it has been a problem. The black mold is gone, but inside her is not. The black mold resolved a couple of months ago. She is doing nasal sprays - nasal saline/etc. He gave her antibiotics a while ago - and thinks that might have caused the yeast infection. My internet cut out and I lost connection with her at this time Unable to re-connect via Zoom and 2 phone calls - voicemails left both times. Opted to finish visit questions/education through ZoomTilt messaging. She felt that when she was splitting the Vyvanse 40 mg and 10 mg it worked better for her and she wants to go back to that instead. Denies CP. Denies concern for STD. She is taking a probiotic. 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; PAP 2017 - negative Chronic pansinusitis s/p ENT eval 2018 - with CT scan Compression fracture of body of thoracic vertebra (HCC) DDD (degenerative disc disease), lumbar NILE (generalized anxiety disorder) Headache numbness/blurred vision Herpes simplex Hypertension Lumbar verterbral fracture, non-traumatic 2018 Nephrolithiasis Osteoporosis Osteopenia + non traumatic vertebral fracture Palpitations s/p evaluation with Cardiology 2013 Pars defect of lumbar spine Seizures (HCC) last one 2014; no longer seeing neurology Spinal stenosis of lumbar region with neurogenic claudication Spondylolisthesis of lumbar region Syncope s/p evaluation Cardiology 2013 PAST SURGICAL HISTORY Procedure Laterality Date LAMINECTOMY W/O FFD > 2 VERT SEG LUMBAR 04/11/2020 Dr. Prasad:L3, L4, AND L5 LAMINECTOMIES, L3-L5 FUSION, PEDICLE SCREW FIXATION, AND USE OF MEDTRONIC HARDWAR S BALLOON,UTERINE ABLATION [id number] 2016 SINUS SURGERY HX 08/2022 balloon sinoplasty FAMILY HISTORY Problem Relation Age of Onset Lung Cancer Mother Hypertension Mother Hypertension Father other (liver failure) Brother fatty liver Allergies Daughter Allergies Son Allergies Son Breast Cancer Maternal Aunt other (ESRD) Maternal Aunt other (Liver failure) Maternal Aunt Ischemic Heart Disease Maternal Aunt Breast Cancer Paternal Aunt other (Lung cancer) Paternal Uncle Colon Cancer No Family History Social History Tobacco Use Smoking status: Every Day Packs/day: 0.50 Years: 30.00 Additional pack years: 0.00 Total pack years: 15.00 Types: Cigarettes Smokeless tobacco: Never Tobacco comments: is down to 5 cigarettes now; used to smoke about 1ppd or more for many years Vaping Use Vaping Use: Never used Substance Use Topics Alcohol use: Yes Comment: rare Drug use: No Current Outpatient Medications Medication Sig lisdexamfetamine (VYVANSE) 50 mg capsule Take 1 capsule by mouth once daily for 30 days. lisdexamfetamine (VYVANSE) 50 mg capsule Take 1 capsule by mouth once daily for 30 days. Do not start before January 05, 2023. lisdexamfetamine (VYVANSE) 50 mg capsule Take 1 capsule by mouth once daily for 30 days. metoprolol succinate ER (TOPROL XL) 25 mg 24 hr tablet Take 2 tablets by mouth once daily. cholecalciferol (VITAMIN D3) 50 mcg (2,000 unit) tablet Take 1 tablet by mouth once daily. albuterol HFA (VENTOLIN HFA) 90 mcg/actuation inhaler Inhale 2 Puffs as instructed every 6 hours as needed. acyclovir (ZOVIRAX) 400 mg tablet Take 400 mg by mouth (more content not included)... [facility] 02-08-2023 History of Presen t illness Narrative VIRTUAL VISIT PROGRESS NOTE This is a virtual visit using Class Messenger video visit. It required patient-provider interaction for the medical decision making as documented below. I have communicated my name and active licensure. The patient's identity and physical location were verified at the time of this visit. Either the patient or their legal visitor services representative has been informed of the risks and benefits of -- and alternatives to -- treatment through a remote evaluation and consents to proceed with the evaluation remotely. Bernie Yi is a 47 year old female seen for a 3 month follow up on HTN, ADHD, HSV, Allergic rhinitis, and osteoporosis. She follows with: ENT - recurrent sinusitis Neurosurgery - Dr. Prasad - spondylolisthesis s/p surgical repair 03/2020 [employer] DEVELOPER - history of cervical cancer 2010 At her last visit, she was switched from Adderall back to Vyvanse due to supply issues. She was also dealing with black mold in her house. At today's visit, she is doing well, she has no concerns. She still has a sinus infection that won't go away. She is seeing the ENT - outside [facility]. He is doing scopes. Saw him about 3 -4 weeks ago. She had a procedure - it improved. Then once she got the black mold it has been a problem. The black mold is gone, but inside her is not. The black mold resolved a couple of months ago. She is doing nasal sprays - nasal saline/etc. He gave her antibiotics a while ago - and thinks that might have caused the yeast infection. My internet cut out and I lost connection with her at this time Unable to re-connect via Zoom and 2 phone calls - voicemails left both times. Opted to finish visit questions/education through ZoomTilt messaging. She felt that when she was splitting the Vyvanse 40 mg and 10 mg it worked better for her and she wants to go back to that instead. Denies CP. Denies concern for STD. She is taking a probiotic. 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; PAP 2017 - negative Chronic pansinusitis s/p ENT eval 2018 - with CT scan Compression fracture of body of thoracic vertebra (HCC) DDD (degenerative disc disease), lumbar NILE (generalized anxiety disorder) Headache numbness/blurred vision Herpes simplex Hypertension Lumbar verterbral fracture, non-traumatic 2018 Nephrolithiasis Osteoporosis Osteopenia + non traumatic vertebral fracture Palpitations s/p evaluation with Cardiology 2013 Pars defect of lumbar spine Seizures (HCC) last one 2014; no longer seeing neurology Spinal stenosis of lumbar region with neurogenic claudication Spondylolisthesis of lumbar region Syncope s/p evaluation Cardiology 2013 PAST SURGICAL HISTORY Procedure Laterality Date LAMINECTOMY W/O FFD > 2 VERT SEG LUMBAR 04/11/2020 Dr. Prasad:L3, L4, AND L5 LAMINECTOMIES, L3-L5 FUSION, PEDICLE SCREW FIXATION, AND USE OF MEDTRONIC HARDWAR S BALLOON,UTERINE ABLATION [id number] 2016 SINUS SURGERY HX 08/2022 balloon sinoplasty FAMILY HISTORY Problem Relation Age of Onset Lung Cancer Mother Hypertension Mother Hypertension Father other (liver failure) Brother fatty liver Allergies Daughter Allergies Son Allergies Son Breast Cancer Maternal Aunt other (ESRD) Maternal Aunt other (Liver failure) Maternal Aunt Ischemic Heart Disease Maternal Aunt Breast Cancer Paternal Aunt other (Lung cancer) Paternal Uncle Colon Cancer No Family History Social History Tobacco Use Smoking status: Every Day Packs/day: 0.50 Years: 30.00 Additional pack years: 0.00 Total pack years: 15.00 Types: Cigarettes Smokeless tobacco: Never Tobacco comments: is down to 5 cigarettes now; used to smoke about 1ppd or more for many years Vaping Use Vaping Use: Never used Substance Use Topics Alcohol use: Yes Comment: rare Drug use: No Current Outpatient Medications Medication Sig lisdexamfetamine (VYVANSE) 50 mg capsule Take 1 capsule by mouth once daily for 30 days. lisdexamfetamine (VYVANSE) 50 mg capsule Take 1 capsule by mouth once daily for 30 days. Do not start before January 05, 2023. lisdexamfetamine (VYVANSE) 50 mg capsule Take 1 capsule by mouth once daily for 30 days. metoprolol succinate ER (TOPROL XL) 25 mg 24 hr tablet Take 2 tablets by mouth once daily. cholecalciferol (VITAMIN D3) 50 mcg (2,000 unit) tablet Take 1 tablet by mouth once daily. albuterol HFA (VENTOLIN HFA) 90 mcg/actuation inhaler Inhale 2 Puffs as instructed every 6 hours as needed. acyclovir (ZOVIRAX) 400 mg tablet Take 400 mg by mouth. No current facility-administered medications for this visit. ALLERGIES Allergen Reactions Levofloxacin Shortness of Breath Macrobid [Nitrofura* Hives Morphine Hives Seasonal Allergies Unknown Dust mites and molds verified by skin testing REVIEW OF SYSTEMS: As noted in HPI PHYSICAL EXAMINATION: VIDEO EXAM: (if completed, performed via video enabled technology) GENERAL: alert and appropriate, in no distress, well-hydrated, well nourished, and happy, smiling, interactive SKIN: no rash noted HEAD: normocephalic, no abnormality or lesion noted NOSE: sounds congested RESPIRATORY: breathing non-labored NEUROLOGIC: no obvious deficit ASSESSMENT: No diagnosis found. PLAN: ASSESSMENT/PLAN: 1. Attention deficit hyperactivity disorder (ADHD), unspecified ADHD type - ICD9: 314.01, ICD10: F90.9 (primary diagnosis) Will switch Vyvanse back from 50 mg once daily to split dosing of 40 mg + 10 mg PDMP checked and validated Last filled Vyvanse 50 mg #30 on 02/06/23 2. Recurrent sinus infections - ICD9: 473.9, ICD10: J32.9 Following with ENT - advised her to contact them again - Dr. Richard outside [facility]. 3. Mold exposure - ICD9: V87.31, ICD10: Z77.120 Resolved a few months ago, still having some residual symptoms. Will follow up with her ENT 4. Vaginal yeast infection - ICD9: 112.1, ICD10: B37.31 Sent Diflucan Continue probiotics Follow up if symptoms persist/worsen Denies concern for STD. There are no Patient Instructions on file for this visit. Richie Bob PA-C documented in this encounter [facility] 11-17-2022 Miscellaneous Notes I spoke with Yonathan at the pharmacy and he did not feel comfortable filling it and the insurance will not cover the medication fill it will be over $500 out of pocket. Per Yonathan if another pharmacist was comfortable filling it then patient could pay out of pocket but he was not comfortable doing so. Left detailed message for the patient. Lana Blunt MA I called [place] [facility] There is no way to verify this. Bernie has never needed this before - has always been compliant without concerns for abuse. I sent a new prescription over for her -please call her pharmacy and give verbal authorization to fill early due to lost prescription Thank you! PDMP checked and validated - last filled Vyvanse 50 mg #30 on 11/08/22 Richie Bob PA-C [place] [employer] [facility] Per patient she spoke with the police station and they told her once it is in the container they cannot open it. Lana Blunt MA Please call and let her know - that shouldn't be a problem, but I need to confirm with the police station. Where did she take it? (What police station) Did you notify them of this error? It has to be documented unfortunately, to fill early. Thank you! Richie Bob PA-C Bernie Yi is calling Richie Bob PA-C today with concern regarding a Medication problem. Pt states she had her boyfriend take her old Adderall to the police station drop box to dispose of. He accidentally also took her bottle of Vyvanse. She had only used 5 tabs out of it. Pt asking if this can be replaced. The police station told her they were unable to get back into the box and return the medication to her. Patient has been identified by name and birthdate. Duration of symptoms: N/A Person calling: self Call patient at: at home [phone] (home) [phone] (cell) Was an appointment scheduled: No Closing statement: Results or non-symptom based questions: Thank you for calling [facility], your call will be returned within the next business day. Suha Pink documented in this encounter [facility] 11-10-2022 Note HNO ID: [id number] Author: Bibi Vasquez MD Service: ? Author Type: Physician Type: Progress Notes Filed: 11/09/2022 10:55 PM Note Text: Infectious Disease E-Consult Response In response to your eConsult Infectious Disease request for Bernie Yi regarding: further testing needed for history of black mold exposure History of present illness provided through requesting provider documentation and current treatment plan was reviewed. Based on the patient history provided, my impression is as follows because immunodeficiency History of black mold exposure associated with shortness of breath Typically, if patient has no history of immunodeficiency, the first-line evaluation would be with allergy and ENT to evaluate for hypersensitivity pneumonitis, asthma, allergic rhinitis. Would recommend checking HIV screening would also recommend reviewing for any history of immunosuppression such as steroids or chemotherapy that could cause immunodeficiency leading to fungal infection Otherwise reviewed CBC and CMP which are normal. No history of neutropenia. WBC normal. Chest x-ray no acute abnormalities Specialist appointment needs: No appointment necessary but you could consider referring to infectious disease clinic and having the patient call [phone] for an appointment , if ENT and allergy evaluation shows concerns for infection (rather than hypersensitivity), or if HIV testing is positive, or history of immunosuppression/immunodeficien cy Bibi Vasquez MD November 09, 2022 [facility] 11-08-2022 Note HNO ID: [id number] Author: RT Yung(R) Service: ? Author Type: Technologist Type: Progress Notes Filed: 11/08/2022 2:32 PM Note Text: Radiology Service Progress Note PATIENT NAME: Bernie Yi DATE OF SERVICE: November 08, 2022 TIME: 2:31 PM PATIENT IDENTITY VERIFICATION COMPLETED USING TWO (2) IDENTIFIERS: Name and Date of confirmed by patient verbally. FALL SCREENING: Has the patient had 2 falls in the last year or 1 fall with injury or currently using an Ambulatory Assistive Device (Walker, Cane, Wheelchair, Crutches, etc.)? No PATIENT GENDER DATA: Female. status: : No status: NO. PATIENT RELEVANT IMPLANT DATA REVIEWED: Not Applicable RADIOLOGY DEPARTMENT: Mammography PERIPHERAL IV DATA: Not applicable SIGNED BY: Keila La RT(R) November 08, 2022 2:31 PM [facility] 11-08-2022 Note HNO ID: [id number] Author: Karin Osman RT(R) Service: ? Author Type: Technologist Type: Progress Notes Filed: 11/08/2022 12:32 PM Note Text: Radiology Service Progress Note PATIENT NAME: Bernie Yi DATE OF SERVICE: November 08, 2022 TIME: 12:31 PM PATIENT IDENTITY VERIFICATION COMPLETED USING TWO (2) IDENTIFIERS: Name and Date of confirmed by patient verbally. FALL SCREENING: Has the patient had 2 falls in the last year or 1 fall with injury or currently using an Ambulatory Assistive Device (Walker, Cane, Wheelchair, Crutches, etc.)? No PATIENT GENDER DATA: Female. status: : No status: NO. PATIENT RELEVANT IMPLANT DATA REVIEWED: Not Applicable RADIOLOGY DEPARTMENT: General X-ray: Exam(s) Completed: Chest X-Ray PERIPHERAL IV DATA: Not applicable SIGNED BY: RT Deng(R) November 08, 2022 12:31 PM [facility] 11-08-2022 Note HNO ID: [id number] Author: Richie Bob PA-C Service: ? Author Type: Physician Paint Roller Cover Machine Setter Type: Progress Notes Filed: 11/08/2022 3:47 PM Note Text: This note was created using [employer]. Subjective Bernie Yi is a 47 year old female. KIM Keyes is here for a Physical with follow up on HTN, ADHD, HSV, allergic rhinitis, and Osteoporosis. She follows with: ENT: Recurrent sinusitis Neurosurgery - Dr. Prasad - spondylolisthesis s/p surgical repair 03/2020 [employer] DEVELOPER- history of cervical cancer - 2010 Overall she is feeling fatigue, and having sinus symptoms and decreased concentration and memory. She states it is the same symptoms she has been having off/on for years that ENT has been following with. She learned last week, that she has black mold growing in her basement. She saw ENT this morning, in regards to this and associated symptoms. Her current symptoms include: fatigue, dizziness, lightheadedness increase hot flashes/sweats, sinus pressure/pain, decreased hearing in right ear, cough that is sometimes productive, chest pain, SOB increase confusion and decrease concentration. All of these wax/wane and ENT has been following with. She takes generic allergy medication daily - does not notice improvement. She does nasal saline irrigation 4 times a day - does not have relief with it. She states her chest pain and SOB is associated with her URI symptoms, not related to activity. She denies: fevers, body aches, palpitations. ENT- has scheduled allergy tests for black mold exposure. HTN: Controlled, taking medication at home and need refill on Metoprolol. ADHD: She states she picked up a new prescription of her adderal last week, and has noticed it is not working like it used to. She is still having difficulty focusing and inability to finish tasks. She states she is interested in restarting Vyvanse. She confirms that she did have some mood instability with starting Vyvanse before, but it resolved over time and she would like to give it another try. She will take the leftover Adderall to the police station to discard it. HSV: No flares since diagnosed over 5 years ago. Does not take acyclovir. Neurosurgery specialist: Seeing specialist in next couple months. He was debating on surgery but she noticed increased pain even with bra/clothing. OB-EGG BUYER: Has not seen in years due to inability to schedule apt. LMP: no period since ablation in 2016 PMHx: unchanged PSurgHx: unchanged FamHx: unchanged ETOH: 2 times a week glass of wine Tobacco: 1/2 pack a day. Trying to decrease amoutn a day. Diet: counsious of diet, fruit and veggies. Exercise: daily stretching for back, no current routine. Review of Systems All other systems reviewed and are negative. 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; PAP 2017 - negative Chronic pansinusitis s/p ENT eval 2019 - with CT scan Compression fracture of body of thoracic vertebra (HCC) DDD (degenerative disc disease), lumbar NILE (generalized anxiety disorder) Headache numbness/blurred vision Herpes simplex Hypertension Lumbar verterbral fracture, non-traumatic 2017 Nephrolithiasis Osteoporosis Osteopenia + non traumatic vertebral fracture Palpitations s/p evaluation with Cardiology 2013 Pars defect of lumbar spine Seizures (HCC) last one 2014; no longer seeing neurology Spinal stenosis of lumbar region with neurogenic claudication Spondylolisthesis of lumbar region Syncope s/p evaluation Cardiology 2013 Past Surgical History: PAST SURGICAL HISTORY Procedure Laterality Date LAMINECTOMY W/O FFD > 2 VERT SEG LUMBAR 04/11/2020 Dr. Prasad:L3, L4, AND L5 LAMINECTOMIES, L3-L5 FUSION, PEDICLE SCREW FIXATION, AND USE OF MEDTRONIC HARDWAR S BALLOON,UTERINE ABLATION [id number] 2016 SINUS SURGERY HX 08/2022 balloon sinoplasty Family History: FAMILY HISTORY Problem Relation Age of Onset Lung Cancer Mother Hypertension Mother Hypertension Father other (liver failure) Brother fatty liver Allergies Daughter Allergies Son Allergies Son Breast Cancer Maternal Aunt other (ESRD) Maternal Aunt other (Liver failure) Maternal Aunt Ischemic Heart Disease Maternal Aunt Breast Cancer Paternal Aunt other (Lung cancer) Paternal Uncle Colon Cancer No Family History Social History: Social History Tobacco Use Smoking status: Every Day Packs/day: 0.50 Years: 30.00 Pack years: 15.00 Types: Cigarettes Smokeless tobacco: Never Tobacco comments: is down to 5 cigarettes now; used to smoke about 1ppd or more for many years Vaping Use Vaping Use: Never used Substance Use Topics Alcohol use: Yes Comment: rare Drug use: No Current Medications: chol (more content not included)... [facility] 11-01-2022 Miscellaneous Notes Last seen in June. Has appt on 11/08. PDMP checked and validated. Last filled Vyvanse in September. Was on Adderall 30 mg prior to shortage. Richie Bob PA-C Patient calling again to check on refills. She is going to be out of medication soon. She is requesting to continue with the vyvanse since the adderall is still on back order with the pharmacy Patient has been identified by name and date of : Yes Requested Prescriptions Pending Prescriptions Disp Refills lisdexamfetamine (VYVANSE) 40 mg capsule 30 capsule 0 Sig: Take 1 capsule by mouth once daily for 30 days. lisdexamfetamine (VYVANSE) 10 mg capsule 30 capsule 0 Sig: Take 1 capsule by mouth once daily for 30 days. With 40 mg dose RX INSTRUCTIONS: Patient aware RX will be sent to pharmacy. No need to notify patient. Tory Miller Ma Patient is requesting to go back on adderall if possible. See mychart message. documented in this encounter [facility] 09-27-2022 Miscellaneous Notes Left detailed message for patient to call back and schedule appointment. I also sent her a My Chart Message. She needs a follow up - in office within 30 days Thank you Richie Bob PA-C Called the [facility] in [place] They confirmed that they have Vyvanse 40 mg & Vyvanse 10 mg in stock. Left a message for Pt to return call to this office to receive message below Please call Bernie - she told me Vyvanse made her irritable, make sure she is okay with taking this again. Also - she is due for an appointment - In office please - please call and schedule I am glad she was able to see ENT - hopefully she is feeling better! PDMP checked and avlidated Last filled Adderall 25 mg #30 on 08/03/22 Richie Bob PA-C Please call [facility] in [place] and confirm this. If so, please let me know Please call Bernie - she told me Vyvanse made her irritable, make sure she is okay with taking this again. Also - she is due for an appointment - In office please - please call and schedule I am glad she was able to see ENT - hopefully she is feeling better! PDMP checked and avlidated Last filled Adderall 25 mg #30 on 08/03/22 Richie Bob PA-C [facility] states they are out of Adderall, but they do have Vyvanse 40 mg plus the 10 mg in stock. Please advise if this can be sent instead. Pt also wanted to let PCP know she saw ENT and had a balloon sinuplasty done last . Suha Pink August 31, 2022 11:05 AM documented in this encounter [facility] 08-04-2022 Note Patient Outreach (IN [facility]) BERNIE YI ([id number]) 1975 F Date Time Provider Department 08/04/22 R[facility] During your visit today, we recorded the following information about you: Allergies As of Date: 08/04/2022 Noted Allergy Reaction LEVOFLOXACIN 07/19/2014 12 - Shortness of Breath MACROBID (NITROFURANTOIN MONOHYD/*11/21/2012 4 - Hives MORPHINE 11/21/2012 4 - Hives SEASONAL ALLERGIES 03/16/2016 16 - Unknown Comments: Dust mites and molds verified by skin testing VYVANSE (LISDEXAMFETAMINE) 08/02/2022 14 - Other: See Comments Comments: Irritability Date Reviewed: 07/14/2022 Reviewed by: Nery Greene MA - Fully Assessed Visit Diagnosis:Encounter for screening mammogram for breast cancer [Z12.31] Order(s):[facility] SCREENING [[id number]] Order #: [id number] FUTURE Prescriptions as of 08/09/2022 - amphetamine-dextroamphetamine XR (ADDERALL XR) 25 mg 24 hr capsule Take 1 capsule by mouth once daily. - metoprolol succinate ER (TOPROL XL) 25 mg 24 hr tablet Take 2 tablets by mouth once daily. - cholecalciferol (VITAMIN D3) 50 mcg (2,000 unit) tablet Take 1 tablet by mouth once daily. - albuterol HFA (VENTOLIN HFA) 90 mcg/actuation inhaler Inhale 2 Puffs as instructed every 6 hours as needed. - acyclovir (ZOVIRAX) 400 mg tablet Take 400 mg by mouth. Meds Comments as of 11/21/2012: Denies home meds Problem List As Of Date 08/04/2022 Noted Resolved Syncope [R55] 12/10/2013 02/09/2017 Epidermal inclusion cyst [L72.0] 08/25/2015 Inclusion cyst [L72.0] 09/04/2015 02/09/2017 Other allergic rhinitis [J30.89] 03/23/2016 02/09/2017 ADHD (attention deficit hyperactivity disorder)* DDD (degenerative disc disease), lumbar [M51.36]02/09/2017 Deviated septum [J34.2] 02/09/2017 Allergic rhinitis [J30.9] 02/09/2017 Intervertebral disc disorder with radiculopathy*02/28/2018 Spondylolisthesis of lumbar region [M43.16] 02/28/2018 Lumbar verterbral fracture, non-traumatic [M84.*06/20/2017 Herpes simplex [B00.9] Chronic thoracic spine pain [M54.6, G89.29] 05/02/2018 Intervertebral disc disorder with radiculopathy*05/24/2018 Hypertension [I10] Asthma [J45.909] Encounter Status:Closed by EPIC, PRODUSER on 08/09/22 [facility] 07-22-2022 Note HNO ID: [id number] Author: Yudi Pizano Ma Service: ? Author Type: ? Type: Progress Notes Filed: 07/22/2022 9:10 AM Note Text: Called left voicemail message to call office back and schedule appointment per below message. 3rd attempt made. [facility] 07-20-2022 Note HNO ID: [id number] Author: Roseann Bowers Service: ? Author Type: ? Type: Progress Notes Filed: 07/20/2022 8:58 AM Note Text: Called AND left message [facility] 07-19-2022 Note HNO ID: [id number] Author: Nargis Ortez LPN Service: ? Author Type: LICENSED NURSE Type: Progress Notes Filed: 07/19/2022 12:49 PM Note Text: POPULATION HEALTH NAVIGATION OUTREACH Action/FYI Please call patient to schedule mammogram. Patient Identified by Name and : NO Outreach Outcome/Action Unable to reach patient: Left message Did you use a PCP flex slot to schedule this appointment? N/A Reason for Outreach Care Gap or Scheduling/Wellness visits Payer: Payor: SOY / Plan: BLUE ACCESS PPO / Product Type: PPO / Care Gap Reviewed:: Breast Cancer screening Reminder: Reminder note to check Health Maintenance for items below Health Maintenance items due: HEPATITIS B(1 of 3 - 3-dose series) Never done PNEUMOCOCCAL(1 - PCV) Never done COLORECTAL CANCER SCREENING Never done MAMMOGRAM due on 03/01/2019 HPV TESTING due on 10/01/2020 DEPRESSION ASSESSMENT Never done PAP TESTING due on 07/26/2022 Navigation Signature: Nargis Ortez LPN July 19, 2022 12:29 PM [facility] 07-19-2022 Note Patient Outreach ([facility]) BERNIE YI ([id number]) 1975 F Date Time Provider Department 07/19/[address] [facility] During your visit today, we recorded the following information about you: Nargis Ortez LPN 07/19/2022 12:49 PM Signed POPULATION HEALTH NAVIGATION OUTREACH Action/FYI Please call patient to schedule mammogram. Patient Identified by Name and : NO Outreach Outcome/Action Unable to reach patient: Left message Did you use a PCP flex slot to schedule this appointment? N/A Reason for Outreach Care Gap or Scheduling/Wellness visits Payer: Payor: SOY / Plan: [employer] PPO / Product Type: PPO / Care Gap Reviewed:: Breast Cancer screening Reminder: Reminder note to check Health Maintenance for items below Health Maintenance items due: HEPATITIS B(1 of 3 - 3-dose series) Never done PNEUMOCOCCAL(1 - PCV) Never done COLORECTAL CANCER SCREENING Never done MAMMOGRAM due on 03/01/2019 HPV TESTING due on 10/01/2020 DEPRESSION ASSESSMENT Never done PAP TESTING due on 07/26/2022 Navigation Signature: Nargis Ortez LPN July 19, 2022 12:29 PM [facility] 07/20/2022 8:58 AM Signed Called AND left message Yudi Pizano Ma 07/22/2022 9:10 AM Signed Called left voicemail message to call office back and schedule appointment per below message. 3rd attempt made. Allergies As of Date: 07/19/2022 Noted Allergy Reaction LEVOFLOXACIN 07/19/2014 12 - Shortness of Breath MACROBID (NITROFURANTOIN MONOHYD/*11/21/2012 4 - Hives MORPHINE 11/21/2012 4 - Hives SEASONAL ALLERGIES 03/16/2016 16 - Unknown Comments: Dust mites and molds verified by skin testing Date Reviewed: 07/14/2022 Reviewed by: Nery Greene MA - Fully Assessed Reason for Visit: PHMA/Care Gap Outreach [[id number]] Cmt: Breast cancer screening Prescriptions as of 07/22/2022 - lisdexamfetamine (VYVANSE) 10 mg capsule Take 1 capsule by mouth once daily for 23 days. With 40 mg dose - metoprolol succinate ER (TOPROL XL) 25 mg 24 hr tablet Take 2 tablets by mouth once daily. - lisdexamfetamine (VYVANSE) 40 mg capsule Take 1 capsule by mouth once daily for 30 days. - cholecalciferol (VITAMIN D3) 50 mcg (2,000 unit) tablet Take 1 tablet by mouth once daily. - albuterol HFA (VENTOLIN HFA) 90 mcg/actuation inhaler Inhale 2 Puffs as instructed every 6 hours as needed. - acyclovir (ZOVIRAX) 400 mg tablet Take 400 mg by mouth. Meds Comments as of 11/21/2012: Denies home meds Problem List As Of Date 07/19/2022 Noted Resolved Syncope [R55] 12/10/2013 02/09/2017 Epidermal inclusion cyst [L72.0] 08/25/2015 Inclusion cyst [L72.0] 09/04/2015 02/09/2017 Other allergic rhinitis [J30.89] 03/23/2016 02/09/2017 ADHD (attention deficit hyperactivity disorder)* DDD (degenerative disc disease), lumbar [M51.36]02/09/2017 Deviated septum [J34.2] 02/09/2017 Allergic rhinitis [J30.9] 02/09/2017 Intervertebral disc disorder with radiculopathy*02/28/2018 Spondylolisthesis of lumbar region [M43.16] 02/28/2018 Lumbar verterbral fracture, non-traumatic [M84.*06/20/2017 Herpes simplex [B00.9] Chronic thoracic spine pain [M54.6, G89.29] 05/02/2018 Intervertebral disc disorder with radiculopathy*05/24/2018 Hypertension [I10] Asthma [J45.909] Encounter Status:Closed by NARGIS ORTEZ on 07/19/22 [facility] 07-19-2022 History of Presen t illness Narrative POPULATION HEALTH NAVIGATION OUTREACH Action/FYI Please call patient to schedule mammogram. Patient Identified by Name and : NO Outreach Outcome/Action Unable to reach patient: Left message Did you use a PCP flex slot to schedule this appointment? N/A Reason for Outreach Care Gap or Scheduling/Wellness visits Payer: Payor: SOY / Plan: BLUE ACCESS PPO / Product Type: PPO / Care Gap Reviewed:: Breast Cancer screening Reminder: Reminder note to check Health Maintenance for items below Health Maintenance items due: HEPATITIS B(1 of 3 - 3-dose series) Never done PNEUMOCOCCAL(1 - PCV) Never done COLORECTAL CANCER SCREENING Never done MAMMOGRAM due on 03/01/2019 HPV TESTING due on 10/01/2020 DEPRESSION ASSESSMENT Never done PAP TESTING due on 07/26/2022 Navigation Signature: Nargis Ortez LPN July 19, 2022 12:29 PM documented in this encounter [facility] 07-14-2022 Note HNO ID: [id number] Author: Richie Bob PA-C Service: ? Author Type: Physician Paint Roller Cover Machine Setter Type: Progress Notes Filed: 07/14/2022 3:59 PM Note Text: This note was created using [employer]. Subjective Bernie Yi is a 47 year old female. KIM Keyes is here for a routine follow up on ADHD, HTN, and HSV. Due to Adderall shortage she has been switched to Concerta. At today's visit, she is doing okay. She states the Concerta is only lasting about 3.5 hours, then she starts to have difficulties. She is getting headaches as well. She states she is checking her BP at home - about 148-153/60. She is still taking Metoprolol once a day - no dizziness. She denies CP/SOB. She is exercising. She states her back is doing okay - she did injure her sacrum, but that is healing. Review of Systems All other systems reviewed and are negative. 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; PAP 2017 - negative Chronic pansinusitis s/p ENT eval 2018 - with CT scan Compression fracture of body of thoracic vertebra (HCC) DDD (degenerative disc disease), lumbar NILE (generalized anxiety disorder) Headache numbness/blurred vision Herpes simplex Hypertension Lumbar verterbral fracture, non-traumatic 2018 Nephrolithiasis Osteoporosis Osteopenia + non traumatic vertebral fracture Palpitations s/p evaluation with Cardiology 2013 Pars defect of lumbar spine Seizures (HCC) last one 2014; no longer seeing neurology Spinal stenosis of lumbar region with neurogenic claudication Spondylolisthesis of lumbar region Syncope s/p evaluation Cardiology 2013 Past Surgical History: PAST SURGICAL HISTORY Procedure Laterality Date LAMINECTOMY W/O FFD > 2 VERT SEG LUMBAR 04/11/2020 Dr. Prasad:L3, L4, AND L5 LAMINECTOMIES, L3-L5 FUSION, PEDICLE SCREW FIXATION, AND USE OF MEDTRONIC HARDWAR S BALLOON,UTERINE ABLATION [id number] 2016 Family History: FAMILY HISTORY Problem Relation Age of Onset Lung Cancer Mother Hypertension Mother Hypertension Father other (liver failure) Brother fatty liver Breast Cancer Maternal Aunt other (ESRD) Maternal Aunt other (Liver failure) Maternal Aunt Ischemic Heart Disease Maternal Aunt Breast Cancer Paternal Aunt other (Lung cancer) Paternal Uncle Allergies Daughter Allergies Son Allergies Son Colon Cancer No Family History Social History: Social History Tobacco Use Smoking status: Every Day Packs/day: 0.50 Years: 30.00 Pack years: 15.00 Types: Cigarettes Smokeless tobacco: Never Tobacco comments: is down to 5 cigarettes now; used to smoke about 1ppd or more for many years Vaping Use Vaping Use: Never used Substance Use Topics Alcohol use: Yes Comment: rare Drug use: No Current Medications: methylphenidate ER 54 mg tablet, Take 1 tablet by mouth once daily. Do not start before July 01, 2022., Disp: 30 tablet, Rfl: 0 cholecalciferol (VITAMIN D3) 50 mcg (2,000 unit) tablet, Take 1 tablet by mouth once daily., Disp: , Rfl: 0 metoprolol succinate ER (TOPROL XL) 25 mg 24 hr tablet, Take 1 tablet by mouth once daily., Disp: 90 tablet, Rfl: 1 albuterol HFA (VENTOLIN HFA) 90 mcg/actuation inhaler, Inhale 2 Puffs as instructed every 6 hours as needed., Disp: 3 Inhaler, Rfl: 1 acyclovir (ZOVIRAX) 400 mg tablet, Take 400 mg by mouth., Disp: , Rfl: No facility-administered encounter medications on file as of 07/14/2022. Allergies: ALLERGIES Allergen Reactions Levofloxacin Shortness of Breath Macrobid [Nitrofura* Hives Morphine Hives Seasonal Allergies Unknown Dust mites and molds verified by skin testing Vitals: BP 160/66 Pulse 92 Ht 5' 7.008 (1.70m) Wt 117 lb (53.1kg) SpO2 99% LMP 04/17/2014 BMI 18.32 kg/(m2). Objective LMP 04/17/2014 Physical Exam Vitals reviewed. Constitutional: General: She is not in acute distress. Appearance: Normal appearance. She is well-developed. She is not diaphoretic. Comments: thin HENT: Head: Normocephalic and atraumatic. Right Ear: External ear normal. Left Ear: External ear normal. Eyes: Conjunctiva/sclera: Conjunctivae normal. Cardiovascular: Rate and Rhythm: Normal rate and regular rhythm. Heart sounds: Normal heart sounds. No murmur heard. Pulmonary: Effort: Pulmonary effort is normal. Breath sounds: Normal breath sounds. No wheezing or rales. Skin: General: Skin is warm and dry. Neurological: General: No focal deficit present. Mental Status: She is alert. She is not disoriented. Motor: No tremor. Gait: Gait normal. Psychiatric: Mood and Affect: Mood normal. Behavior: Behavior normal. Thought Content: Thought content normal. Judgment: Judgment normal. Comments: Pleasant, good eye (more content not included)... [facility] 07-14-2022 Instructions Richie Bob PA-C - 07/14/2022 3:30 PM EST Blood pressure goal: 130/80 Increase Metoprolol to 50 mg (2 of your 25 mg) Calcium supplement + D Richie Bob PA-C documented in this encounter [facility] 07-14-2022 History of Presen t illness Narrative This note was created using [employer]. Subjective Bernie Yi is a 47 year old female. KIM Keyes is here for a routine follow up on ADHD, HTN, and HSV. Due to Adderall shortage she has been switched to Concerta. At today's visit, she is doing okay. She states the Concerta is only lasting about 3.5 hours, then she starts to have difficulties. She is getting headaches as well. She states she is checking her BP at home - about 148-153/60. She is still taking Metoprolol once a day - no dizziness. She denies CP/SOB. She is exercising. She states her back is doing okay - she did injure her sacrum, but that is healing. Review of Systems All other systems reviewed and are negative. 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; PAP 2017 - negative Chronic pansinusitis s/p ENT eval 2018 - with CT scan Compression fracture of body of thoracic vertebra (HCC) DDD (degenerative disc disease), lumbar NILE (generalized anxiety disorder) Headache numbness/blurred vision Herpes simplex Hypertension Lumbar verterbral fracture, non-traumatic 2017 Nephrolithiasis Osteoporosis Osteopenia + non traumatic vertebral fracture Palpitations s/p evaluation with Cardiology 2013 Pars defect of lumbar spine Seizures (HCC) last one 2014; no longer seeing neurology Spinal stenosis of lumbar region with neurogenic claudication Spondylolisthesis of lumbar region Syncope s/p evaluation Cardiology 2013 Past Surgical History: PAST SURGICAL HISTORY Procedure Laterality Date LAMINECTOMY W/O FFD > 2 VERT SEG LUMBAR 04/11/2020 Dr. Prasad:L3, L4, AND L5 LAMINECTOMIES, L3-L5 FUSION, PEDICLE SCREW FIXATION, AND USE OF MEDTRONIC HARDWAR S BALLOON,UTERINE ABLATION [id number] 2016 Family History: FAMILY HISTORY Problem Relation Age of Onset Lung Cancer Mother Hypertension Mother Hypertension Father other (liver failure) Brother fatty liver Breast Cancer Maternal Aunt other (ESRD) Maternal Aunt other (Liver failure) Maternal Aunt Ischemic Heart Disease Maternal Aunt Breast Cancer Paternal Aunt other (Lung cancer) Paternal Uncle Allergies Daughter Allergies Son Allergies Son Colon Cancer No Family History Social History: Social History Tobacco Use Smoking status: Every Day Packs/day: 0.50 Years: 30.00 Pack years: 15.00 Types: Cigarettes Smokeless tobacco: Never Tobacco comments: is down to 5 cigarettes now; used to smoke about 1ppd or more for many years Vaping Use Vaping Use: Never used Substance Use Topics Alcohol use: Yes Comment: rare Drug use: No Current Medications: methylphenidate ER 54 mg tablet, Take 1 tablet by mouth once daily. Do not start before July 01, 2022., Disp: 30 tablet, Rfl: 0 cholecalciferol (VITAMIN D3) 50 mcg (2,000 unit) tablet, Take 1 tablet by mouth once daily., Disp: , Rfl: 0 metoprolol succinate ER (TOPROL XL) 25 mg 24 hr tablet, Take 1 tablet by mouth once daily., Disp: 90 tablet, Rfl: 1 albuterol HFA (VENTOLIN HFA) 90 mcg/actuation inhaler, Inhale 2 Puffs as instructed every 6 hours as needed., Disp: 3 Inhaler, Rfl: 1 acyclovir (ZOVIRAX) 400 mg tablet, Take 400 mg by mouth., Disp: , Rfl: No facility-administered encounter medications on file as of 07/14/2022. Allergies: ALLERGIES Allergen Reactions Levofloxacin Shortness of Breath Macrobid [Nitrofura* Hives Morphine Hives Seasonal Allergies Unknown Dust mites and molds verified by skin testing Vitals: BP 160/66 Pulse 92 Ht 5' 7.008 (1.70m) Wt 117 lb (53.1kg) SpO2 99% LMP 04/17/2014 BMI 18.32 kg/(m^2). Objective LMP 04/17/2014 Physical Exam Vitals reviewed. Constitutional: General: She is not in acute distress. Appearance: Normal appearance. She is well-developed. She is not diaphoretic. Comments: thin HENT: Head: Normocephalic and atraumatic. Right Ear: External ear normal. Left Ear: External ear normal. Eyes: Conjunctiva/sclera: Conjunctivae normal. Cardiovascular: Rate and Rhythm: Normal rate and regular rhythm. Heart sounds: Normal heart sounds. No murmur heard. Pulmonary: Effort: Pulmonary effort is normal. Breath sounds: Normal breath sounds. No wheezing or rales. Skin: General: Skin is warm and dry. Neurological: General: No focal deficit present. Mental Status: She is alert. She is not disoriented. Motor: No tremor. Gait: Gait normal. Psychiatric: Mood and Affect: Mood normal. Behavior: Behavior normal. Thought Content: Thought content normal. Judgment: Judgment normal. Comments: Pleasant, good eye contact Assessment and Plan ASSESSMENT/PLAN: 1. Attention deficit hyperactivity disorder (ADHD), unspecified ADHD type - ICD9: 314.01, ICD10: F90.9 (primary diagnosis) Concerta not working - causing headaches, not lasting for her ADHD symptoms. Adderall still out of stock - she called pharmacy to confirm while I was in the office with her. Will switch to Vyvanse, start 40 mg due to previous stimulant use Increase/adjust in 2 weeks if needed, otherwise, re-check 1 month - TOX SCREEN ROUT UR - LISDEXAMFETAMINE 40 MG CAPSULE 2. Primary hypertension - ICD9: 401.9, ICD10: I10 - suboptimal control - high at home as well Increase Metoprolol to 50 mg - especially if BP remains over 130/80 at home Monitor at home, if it is normal, or she develops dizizness - just take 25 mg a day May be worsened from change to Concerta We are now changing to Vyvanse. - COMP METABOLIC PANEL - CBC - URINALYSIS, REFLEX MICROSCOPIC - LIPID PANEL BASIC - METOPROLOL SUCCINATE ER 25 MG TABLET,EXTENDED RELEASE 24 HR 3. Osteopenia, unspecified location - ICD9: 733.90, ICD10: M85.80 STart calcium + vit D Exercise - weight bearing Update DEXa - last one 2017 - DXA-AXIAL SKELETON - VITAMIN D 25 HYDROXY 4. Routine medical exam - ICD9: V70.0, ICD10: Z00.00 Next visit - COMP METABOLIC PANEL - CBC - URINALYSIS, REFLEX MICROSCOPIC - LIPID PANEL BASIC - TOX SCREEN ROUT UR - VITAMIN D 25 HYDROXY 5. Encounter for immunization - ICD9: V03.89, ICD10: Z23 - PFIZER-BIONTECH COVID-19 BIVALENT BOOSTER VACCINE, AGE 12+ YR PDMP checked and validated Last filled Methylphenidate ER 54 mg #30 on 06/29/22 Vyvanse instead if no ADderall Richie Bob PA-C documented in this encounter [facility] 06-29-2022 Miscellaneous Notes I Miscalculated, she should be able to fill it today, it should have been her last dose today I will let the pharmacy know Thank you! Richie Bob PA-C Pt states she took the last pill today. She is asking why she hast to wait until 07/01 to get the next script filled. She would like to pick it up today so she can have a pill for tomorrow. Please advise. [phone] (home) Suha Pink June 29, 2022 11:10 AM Pt states this medication needs to go the [facility] [place] on [address]. Please remove the [facility] [place] from her pharmacy list. Suha Pink June 25, 2022 4:03 PM Chart reviewed, has a visit on 07/06 PDMP checked and validated Last filled #14 of Methylphenidate 54 mg on 06/16/22 Richie Bob PA-C documented in this encounter [facility] 05-27-2022 Miscellaneous Notes This patient gave consent to this Medical Advice Message and is aware that it may result in a bill to their insurance, as well as the possibility of receiving a bill for a copay and/or deductible. They are an established patient, but are not seeking information exclusively about a problem treated during an in person or video visit in the last seven days. I did not recommend an in person or video visit within seven days of my reply. See the Class Messenger message reply for my assessment and plan. I spent a total of 5-10 minutes reviewing the patient's prior medical records and current request for medical advice, prescribing medications or ordering tests (if applicable), replying to the patient, and documenting the encounter. PDMP checked and validated Last filled Adderall 30 mg #30 on 04/23/22 Sent Methylphenidate instead due to Adderall shortage Richie Bob PA-C Per Yonathan at the pharmacy they have any dose of methylphenidate available. Lana Blunt MA Please call the pharmacy and find out what they have in stock to replace the Adderall 30 mg If I can send different dosing or if there is another stimulant available they have in stock (as opposed to me sending different things and they don't have any of them) Thank you! Richie Bob PA-C Patient is calling in and states that she could not find another pharmacy that had adderall so she wants to change to a similar medication. documented in this encounter [facility] 04-23-2022 Miscellaneous Notes Verbal ok given to Andre at the pharmacy to fill one day early. Left message advising patient that pharmacy will fill her med one day early. Lana Blunt MA Please give pharmacy verbal okay to fill early Thank you Richie Bob PA-C Pdmp checked and validated Thank you! Patient asking if her adderall can be filled one day early as she is going out of town for 3 weeks to her sons graduation? Please advise patient [phone]. documented in this encounter [facility] 10-04-2022 History of Presen t illness Narrative VIRTUAL VISIT PROGRESS NOTE This is a virtual visit using Class Messenger video visit. It required patient-provider interaction for the medical decision making as documented below. Confirmed name and . She is at home in [place]. Bernie Yi is a 47 year old female seen for a routine checkup on ADHD. She is doing well. She is leaving for [place] for 3 weeks - her youngest is graduating basic training. She states things are going - denies CP/SOB/palpitations, problems with anxiety or problems sleeping. She is exercising. She states the Adderall is working well. She states she has been monitoring her BP at home about 130 systolic, it has been stable. 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; PAP 2017 - negative Chronic pansinusitis s/p ENT eval 2018 - with CT scan Compression fracture of body of thoracic vertebra (HCC) DDD (degenerative disc disease), lumbar NILE (generalized anxiety disorder) Headache numbness/blurred vision Herpes simplex Hypertension Lumbar verterbral fracture, non-traumatic 2018 Nephrolithiasis Osteoporosis Osteopenia + non traumatic vertebral fracture Palpitations s/p evaluation with Cardiology 2013 Pars defect of lumbar spine Seizures (HCC) last one 2014; no longer seeing neurology Spinal stenosis of lumbar region with neurogenic claudication Spondylolisthesis of lumbar region Syncope s/p evaluation Cardiology 2014 PAST SURGICAL HISTORY Procedure Laterality Date LAMINECTOMY W/O FFD > 2 VERT SEG LUMBAR 04/11/2020 Dr. Prasad:L3, L4, AND L5 LAMINECTOMIES, L3-L5 FUSION, PEDICLE SCREW FIXATION, AND USE OF MEDTRONIC HARDWAR S BALLOON,UTERINE ABLATION [id number] 2016 FAMILY HISTORY Problem Relation Age of Onset Lung Cancer Mother Hypertension Mother Hypertension Father other (liver failure) Brother fatty liver Breast Cancer Maternal Aunt other (ESRD) Maternal Aunt other (Liver failure) Maternal Aunt Ischemic Heart Disease Maternal Aunt Breast Cancer Paternal Aunt other (Lung cancer) Paternal Uncle Allergies Daughter Allergies Son Allergies Son Colon Cancer No Family History Social History Tobacco Use Smoking status: Every Day Packs/day: 0.50 Years: 30.00 Pack years: 15.00 Types: Cigarettes Smokeless tobacco: Never Tobacco comments: is down to 5 cigarettes now; used to smoke about 1ppd or more for many years Vaping Use Vaping Use: Never used Substance Use Topics Alcohol use: Yes Comment: rare Drug use: No Current Outpatient Medications Medication Sig amphetamine-dextroamphetamine XR (ADDERALL XR) 30 mg 24 hr capsule Take 1 capsule by mouth once daily for 30 days. amphetamine-dextroamphetamine XR (ADDERALL XR) 30 mg 24 hr capsule Take 1 capsule by mouth once daily for 30 days. Do not start before January 23, 2022. amphetamine-dextroamphetamine XR (ADDERALL XR) 30 mg 24 hr capsule Take 1 capsule by mouth once daily for 30 days. Do not start before February 22, 2022. metoprolol succinate ER (TOPROL XL) 25 mg 24 hr tablet Take 1 tablet by mouth once daily. albuterol HFA (VENTOLIN HFA) 90 mcg/actuation inhaler Inhale 2 Puffs as instructed every 6 hours as needed. acyclovir (ZOVIRAX) 400 mg tablet Take 400 mg by mouth. No current facility-administered medications for this visit. ALLERGIES Allergen Reactions Levofloxacin Shortness of Breath Macrobid [Nitrofura* Hives Morphine Hives Seasonal Allergies Unknown Dust mites and molds verified by skin testing REVIEW OF SYSTEMS: As noted in HPI PHYSICAL EXAMINATION: VIDEO EXAM: (if completed, performed via video enabled technology) GENERAL: alert and appropriate, in no distress, well-hydrated, well nourished, and happy, smiling, interactive SKIN: no rash noted HEAD: normocephalic, no abnormality or lesion noted RESPIRATORY: breathing non-labored NEUROLOGIC: no obvious deficit ASSESSMENT: No diagnosis found. PLAN: ASSESSMENT/PLAN: 1. Attention deficit hyperactivity disorder (ADHD), unspecified ADHD type - ICD9: 314.01, ICD10: F90.9 (primary diagnosis) Doing well on medication No concern for abuse No side effects Compliant with follow ups PDMP checked and validated Last filled Adderall 02/23/22 #30 Richie Bob PA-C Leaving for [facility] for 3 weeks- needs authorization for early fill. Sent early fill and called [facility] to confirm - they are getting it ready for her today. All following refills will be based on last fill on 9/6/22 - DEXTROAMPHETAMINE-AMPHETAMINE ER 30 MG 24HR CAPSULE,EXTEND RELEASE - DEXTROAMPHETAMINE-AMPHETAMINE ER 30 MG 24HR CAPSULE,EXTEND RELEASE - DEXTROAMPHETAMINE-AMPHETAMINE ER 30 MG 24HR CAPSULE,EXTEND RELEASE 2. Primary hypertension - ICD9: 401.9, ICD10: I10 Continue home monitoring Follow up in office next visit Doing well Continue exercise 3. Herpes simplex - ICD9: 054.9, ICD10: B00.9 Doing well on Acyclovir PRN There are no Patient Instructions on file for this visit. Yearly: august Richie Bob PA-C documented in this encounter [facility] 12-24-2021 History of Presen t illness Narrative This note was created using [employer]. Heather Yi is a 46 year old female. KIM Keyes is here for a routine follow up on ADHD and HTN. She was started on Metoprolol at last visit. 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 She lost her brother a year ago in November 2020 and mom February 2021. She states she is doing well considering - focus is good, sleeping well 6-7 hours a night. She is using her medication more regularly. She is not feeling too stressed, depression. She denies CP/SOB, dizziness. She has chronic irregular heartbeat - she does not have symptoms, it is stable. She is doing meditation and it is helping. Review of Systems All other systems reviewed and are negative. 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; PAP 2017 - negative Chronic pansinusitis s/p ENT eval 2018 - with CT scan Compression fracture of body of thoracic vertebra (HCC) DDD (degenerative disc disease), lumbar NILE (generalized anxiety disorder) Headache numbness/blurred vision Herpes simplex Hypertension Lumbar verterbral fracture, non-traumatic 2018 Nephrolithiasis Osteoporosis Osteopenia + non traumatic vertebral fracture Palpitations s/p evaluation with Cardiology 2013 Pars defect of lumbar spine Seizures (HCC) last one 2014; no longer seeing neurology Spinal stenosis of lumbar region with neurogenic claudication Spondylolisthesis of lumbar region Syncope s/p evaluation Cardiology 2013 Past Surgical History: PAST SURGICAL HISTORY Procedure Laterality Date LAMINECTOMY W/O FFD > 2 VERT SEG LUMBAR 04/11/2020 Dr. Prasad:L3, L4, AND L5 LAMINECTOMIES, L3-L5 FUSION, PEDICLE SCREW FIXATION, AND USE OF MEDTRONIC HARDWAR S BALLOON,UTERINE ABLATION [id number] 2016 Family History: FAMILY HISTORY Problem Relation Age of Onset Lung Cancer Mother Hypertension Mother Hypertension Father other (liver failure) Brother fatty liver Breast Cancer Maternal Aunt other (ESRD) Maternal Aunt other (Liver failure) Maternal Aunt Ischemic Heart Disease Maternal Aunt Breast Cancer Paternal Aunt other (Lung cancer) Paternal Uncle Allergies Daughter Allergies Son Allergies Son Colon Cancer No Family History Social History: Social History Tobacco Use Smoking status: Current Every Day Smoker Packs/day: 0.50 Years: 30.00 Pack years: 15.00 Types: Cigarettes Smokeless tobacco: Never Used Tobacco comment: is down to 5 cigarettes now; used to smoke about 1ppd or more for many years Vaping Use Vaping Use: Never used Substance Use Topics Alcohol use: Yes Comment: rare Drug use: No Current Medications: metoprolol succinate ER (TOPROL XL) 25 mg 24 hr tablet, Take 1 tablet by mouth once daily., Disp: 90 tablet, Rfl: 1 albuterol HFA (VENTOLIN HFA) 90 mcg/actuation inhaler, Inhale 2 Puffs as instructed every 6 hours as needed., Disp: 3 Inhaler, Rfl: 1 acyclovir (ZOVIRAX) 400 mg tablet, Take 400 mg by mouth., Disp: , Rfl: [DISCONTINUED] amphetamine-dextroamphetamine XR (ADDERALL XR) 30 mg 24 hr capsule, Take 1 capsule by mouth once daily for 30 days., Disp: 30 capsule, Rfl: 0 [DISCONTINUED] amphetamine-dextroamphetamine XR (ADDERALL XR) 30 mg 24 hr capsule, Take 1 capsule by mouth once daily for 30 days. Do not start before September 19, 2021., Disp: 30 capsule, Rfl: 0 [DISCONTINUED] amphetamine-dextroamphetamine XR (ADDERALL XR) 30 mg 24 hr capsule, Take 1 capsule by mouth once daily for 30 days. Do not start before October 19, 2021., Disp: 30 capsule, Rfl: 0 No facility-administered encounter medications on file as of 12/24/2021. Allergies: ALLERGIES Allergen Reactions Levofloxacin Shortness of Breath Macrobid [Nitrofura* Hives Morphine Hives Seasonal Allergies Unknown Dust mites and molds verified by skin testing Vitals: BP 124/80 Pulse 73 Wt 130 lb (59.0kg) SpO2 99% LMP 04/17/2014 Objective LMP 04/17/2014 Physical Exam Vitals reviewed. Constitutional: General: She is not in acute distress. Appearance: She is well-developed. She is not diaphoretic. HENT: Head: Normocephalic and atraumatic. Right Ear: External ear normal. Left Ear: External ear normal. Eyes: Conjunctiva/sclera: Conjunctivae normal. Cardiovascular: Rate and Rhythm: Normal rate and regular rhythm. Heart sounds: Normal heart sounds. No murmur heard. Pulmonary: Effort: Pulmonary effort is normal. Breath sounds: Normal breath sounds. No wheezing or rales. Skin: General: Skin is warm and dry. Neurological: General: No focal deficit present. Mental Status: She is alert. She is not disoriented. Motor: No tremor. Gait: Gait normal. Psychiatric: Mood and Affect: Mood normal. Behavior: Behavior normal. Thought Content: Thought content normal. Judgment: Judgment normal. Comments: Pleasant, good eye contact Assessment and Plan ASSESSMENT/PLAN: 1. Attention deficit hyperactivity disorder (ADHD), unspecified ADHD type - ICD9: 314.01, ICD10: F90.9 (primary diagnosis) Well controlled on medication, no side effects or concern for abuse UDS up to date - recheck at physical in August. Refills sent for 3 months Okay to do virtual in 3 months for re-check - DEXTROAMPHETAMINE-AMPHETAMINE ER 30 MG 24HR CAPSULE,EXTEND RELEASE - DEXTROAMPHETAMINE-AMPHETAMINE ER 30 MG 24HR CAPSULE,EXTEND RELEASE - DEXTROAMPHETAMINE-AMPHETAMINE ER 30 MG 24HR CAPSULE,EXTEND RELEASE 2. Primary hypertension - ICD9: 401.9, ICD10: I10 - good control - Continue current medication(s) - Recommended regular aerobic exercise. - Goal of BP <130/80 3. Encounter for immunization - ICD9: V03.89, ICD10: Z23 - PFIZER-BIONTECH COVID-19 VACCINE, AGE 12+ YR ([facility]AMES TOP) PDMP checked and validated Last filled Adderall 30 mg #30 on 11/20/21 Richie Bob PA-C documented in this encounter [facility] 12-24-2021 Instructions Lana Blunt MA - 12/24/2021 10:39 AM EDT [facility] FACTS Please visit our lab at least 3-5 days before your scheduled appointment to have your lab work drawn, if lab work is ordered. This will allow us the ability to review your lab work results with you during your scheduled visit. [facility] HOURS: Lab is open Tuesday - Tuesday from 6:30am to 5pm and open 8am -12pm on Saturdays. [facility] HOURS: Tuesday- 7:30am to 5:30pm. Fridays 7:30-5:00pm and Tuesday 8:00am to 12:00 pm. Routine Lab Orders 365 days after they are entered. If your lab orders , you may be required to wait in the lab while they are reinstated FUTURE ORDERS are lab tests to be completed on the EXPECTED date. These orders 60 days after the expected date. STANDING ORDERS are recurring orders with an expiration date. The interval will indicate how often the test should be completed. FASTING LAB means nothing to eat or drink (except water) 10-12 hours before your blood is drawn. CT/MRI/IVP If you have one of these radiology exams ordered along with blood work, please complete the blood work at least one day prior to the scheduled exam. My Chart Schedule My Appointment enables you to view your established primary care provider's open schedule and book an appointment online in real-time. This feature is available in internal medicine, family medicine, or pediatrics at any of our [facility] locations and main campus. documented in this encounter [facility] 10-31-2021 Miscellaneous Notes Called left voicemail message to call office back and schedule appointment per below message. Called left voicemail message to call office back and schedule appointment per below message. She needs to see ENT RODRICK please Richie Bob PA-C documented in this encounter [facility] documented as of this encounter (statuses as of 10/31/2021) [facility] History of Past illness Narrative* Problem Noted Date Resolved Date Other allergic rhinitis 03/23/2016 02/10/20 17 Inclusion cyst 09/04/2015 02/09/2017 Syncope 12/10/2013 02/09/2017 documented as of this encounter (statuses as of 12/24/2021) [facility] History of Past illness Narrative* Problem Noted Date Resolved Date Other allergic rhinitis 03/23/2016 02/10/20 17 Inclusion cyst 09/04/2015 02/09/2017 Syncope 12/10/2013 02/09/2017 documented as of this encounter (statuses as of 03/23/2022) [facility] History of Past illness Narrative* Problem Noted Date Resolved Date Other allergic rhinitis 03/23/2016 02/10/20 17 Inclusion cyst 09/04/2015 02/09/2017 Syncope 12/10/2013 02/09/2017 documented as of this encounter (statuses as of 05/06/2022) [facility] History of Past illness Narrative* Problem Noted Date Resolved Date Other allergic rhinitis 03/23/2016 02/10/20 17 Inclusion cyst 09/04/2015 02/09/2017 Syncope 12/10/2013 02/09/2017 documented as of this encounter (statuses as of 05/27/2022) [facility] of Past illness Narrative* Problem Noted Date Resolved Date Other allergic rhinitis 03/23/2016 02/10/20 17 Inclusion cyst 09/04/2015 02/09/2017 Syncope 12/10/2013 02/09/2017 documented as of this encounter (statuses as of 06/29/2022) [facility] of Past illness Narrative* Problem Noted Date Resolved Date Other allergic rhinitis 03/23/2016 02/10/20 17 Inclusion cyst 09/04/2015 02/09/2017 Syncope 12/10/2013 02/09/2017 documented as of this encounter (statuses as of 07/14/2022) [facility] History of Past illness Narrative* Problem Noted Date Resolved Date Other allergic rhinitis 03/23/2016 02/10/20 17 Inclusion cyst 09/04/2015 02/09/2017 Syncope 12/10/2013 02/09/2017 documented as of this encounter (statuses as of 07/19/2022) [facility] of Past illness Narrative* Problem Noted Date Resolved Date Other allergic rhinitis 03/23/2016 02/10/20 17 Inclusion cyst 09/04/2015 02/09/2017 Syncope 12/10/2013 02/09/2017 documented as of this encounter (statuses as of 09/27/2022) [facility] History of Past illness Narrative* Problem Noted Date Resolved Date Other allergic rhinitis 03/23/2016 02/10/20 17 Inclusion cyst 09/04/2015 02/09/2017 Syncope 12/10/2013 02/09/2017 documented as of this encounter (statuses as of 11/01/2022) [facility] of Past illness Narrative* Problem Noted Date Diagnosed Date Resolved Date Other allergic rhinitis 03/23/201601/19 Inclusion cyst 09/04/2015 02/09/2017 Syncope 12/10/2013 02/09/2017 documented as of this encounter (statuses as of 01/05/2023) [facility] of Past illness Narrative* Problem Noted Date Diagnosed Date Resolved Date Other allergic rhinitis 03/23/201601/19 Inclusion cyst 09/04/2015 02/09/2017 Syncope 12/10/2013 02/09/2017 documented as of this encounter (statuses as of 02/08/2023) [facility] of Past illness Narrative* Problem Noted Date Diagnosed Date Resolved Date Other allergic rhinitis 03/23/201601/19 Inclusion cyst 09/04/2015 02/09/2017 Syncope 12/10/2013 02/09/2017 documented as of this encounter (statuses as of 05/17/2023) [facility] History of Past illness Narrative* Problem Noted Date Diagnosed Date Resolved Date Other allergic rhinitis 03/23/201601/19 Inclusion cyst 09/04/2015 02/09/2017 Syncope 12/10/2013 02/09/2017 documented as of this encounter (statuses as of 05/31/2023) [facility] History of Past illness Narrative* Problem Noted Date Diagnosed Date Resolved Date Other allergic rhinitis 03/23/201601/19 Inclusion cyst 09/04/2015 02/09/2017 Syncope 12/10/2013 02/09/2017 documented as of this encounter (statuses as of 07/29/2023) [facility] Diagnosis Recurrent sinus infections- Primary Unspecified sinusitis (chronic) [facility] Diagnosis Attention deficit hyperactivity disorder (ADHD), unspecified ADHD type- Primary Primary hypertension Unspecified essential hypertension Encounter for immunization Need for other specified prophylactic vaccination against single bacterial disease [facility] Diagnosis Lumbar stenosis with neurogenic claudication Spinal stenosis, lumbar region, with neurogenic claudication Spondylolisthesis of lumbar region Acquired spondylolisthesis Pars defect of lumbar spine Acquired spondylolisthesis [facility]* Diagnosis Sacral insufficiency fracture, initial encounter- Primary Chronic midline low back pain, unspecified whether sciatica present History of lumbar fusion documented in this encounter [employer] Work Phone: Evaluation note* Diagnosis Attention deficit hyperactivity disorder (ADHD), unspecified ADHD type- Primary Primary hypertension Unspecified essential hypertension Herpes simplex Herpes simplex without mention of complication [facility] Diagnosis Attention deficit hyperactivity disorder (ADHD), unspecified ADHD type- Primary [facility] Diagnosis Attention deficit hyperactivity disorder (ADHD), unspecified ADHD type [facility]* Diagnosis Attention deficit hyperactivity disorder (ADHD), unspecified ADHD type- Primary Primary hypertension Unspecified essential hypertension Osteopenia, unspecified location Routine medical exam Routine general medical examination at a health care facility Encounter for immunization Need for other specified prophylactic vaccination against single bacterial disease documented in this encounter [facility] note* Diagnosis Attention deficit hyperactivity disorder (ADHD), unspecified ADHD type documented in this encounter [facility] note* Diagnosis Attention deficit hyperactivity disorder (ADHD), unspecified ADHD type documented in this encounter [facility] note* Diagnosis Attention deficit hyperactivity disorder (ADHD), unspecified ADHD type documented in this encounter [facility] note* Diagnosis Attention deficit hyperactivity disorder (ADHD), unspecified ADHD type- Primary Recurrent sinus infections Unspecified sinusitis (chronic) Mold exposure Contact with and (suspected) exposure to mold Vaginal yeast infection Candidiasis of vulva and vagina documented in this encounter [facility] note* Diagnosis Chronic sinusitis, unspecified location- Primary Mold exposure Contact with and (suspected) exposure to mold Acute vaginitis Vaginitis and vulvovaginitis, unspecified Sore in nose Other diseases of nasal cavity and sinuses Attention deficit hyperactivity disorder (ADHD), unspecified ADHD type Elevated blood pressure reading without diagnosis of hypertension Screening for cervical cancer Screening for malignant neoplasm of the cervix documented in this encounter [facility] Discharge instructions* Attachments The following attachments cannot be sent through Care Everywhere. * Spine Fracture (Kittitian) * Low Back Pain: General Info ([place]) [facility]: Summary Purpose Family History No Family History Records FoundNo Family History Records FoundNo Family History Records FoundNo Family History Records FoundNo Family History Records FoundNo Family History Records FoundNo Family History Records Found Advance Directives Documents on File Type Date Recorded Patient Teaching Dietitian Expl anation ACP-Advance Directive ACP-Power of Running Rigger Latest Code Status on File Code Status Date Activated Date Inactivated Comments Full Code 04/11/2020 6:18 PM Full Code 04/11/2020 9:39 AM 04/11/2020 6:07 PM Latest Code Status on File Code Status Date Activated Date Inactivated Comments Full Code 04/11/2020 6:18 PM 04/14/2020 6:11 PM Latest Code Status on File Code Status Date Activated Date Inactivated Comments Full Code 04/17/2020 5:57 AM Full Code 04/11/2020 6:18 PM 04/14/2020 6:11 PM Latest Code Status on File Code Status Date Activated Date Inactivated Comments Full Code 04/17/2020 5:57 AM 04/18/2020 3:30 PM Documents on File Type Date Recorded Patient Teaching Dietitian Expl anation Advance Directive(s) 09/20/2020 3:14 AM Advance Directive(s) 08/20/2020 9:30 PM Advance Directive(s) 02/26/2020 8:50 PM Advance Directive(s) 01/26/2020 7:46 PM Advance Directive(s) 12/31/2019 7:59 AM Advance Directive(s) 12/14/2019 1:18 PM Advance Directive(s) 10/25/2019 8:24 AM Advance Directive(s) 10/24/2019 11:05 AM Advance Directive(s) 07/16/2019 8:50 PM Advance Directive(s) 05/31/2019 4:26 PM Advance Directive(s) 04/13/2019 1:36 PM Advance Directive(s) 04/13/2019 3:53 PM Advance Directive(s) 01/05/2019 11:25 AM Advance Directive(s) 01/04/2019 1:08 PM Advance Directive(s) 08/14/2018 6:38 PM Advance Directive(s) 06/27/2018 11:48 AM Advance Directive(s) 06/01/2018 9:47 AM Advance Directive(s) 04/04/2018 11:10 AM Advance Directive(s) 02/09/2018 2:08 PM Advance Directive(s) 02/06/2018 7:10 PM Advance Directive(s) 09/19/2017 12:47 PM Advance Directive(s) 09/04/2015 10:51 AM Documents on File Type Date Recorded Patient Teaching Dietitian Expl anation Advance Directive(s) 09/20/2020 3:14 AM Advance Directive(s) 08/20/2020 9:30 PM Advance Directive(s) 02/26/2020 8:50 PM Advance Directive(s) 01/26/2020 7:46 PM Advance Directive(s) 12/31/2019 7:59 AM Advance Directive(s) 12/14/2019 1:18 PM Advance Directive(s) 10/25/2019 8:24 AM Advance Directive(s) 10/24/2019 11:05 AM Advance Directive(s) 07/16/2019 8:50 PM Advance Directive(s) 05/31/2019 4:26 PM Advance Directive(s) 04/13/2019 1:36 PM Advance Directive(s) 04/13/2019 3:53 PM Advance Directive(s) 01/05/2019 11:25 AM Advance Directive(s) 01/04/2019 1:08 PM Advance Directive(s) 08/14/2018 6:38 PM Advance Directive(s) 06/27/2018 11:48 AM Advance Directive(s) 06/01/2018 9:47 AM Advance Directive(s) 04/04/2018 11:10 AM Advance Directive(s) 02/09/2018 2:08 PM Advance Directive(s) 02/06/2018 7:10 PM Advance Directive(s) 09/19/2017 12:47 PM Advance Directive(s) 09/04/2015 10:51 AM Latest Code Status on File Code Status Date Activated Date Inactivated Comments Full Code 04/17/2020 5:57 AM 04/18/2020 3:30 PM Full Code 04/11/2020 6:18 PM 04/14/2020 6:11 PM Full Code 04/11/2020 9:39 AM 04/11/2020 6:07 PM Discharge Instructions * Instructions* Abundio Mosley PA-C - 04/14/2020 No lifting greater than 10 pounds for 3 weeks Limit twisting, turning, and bending motions at the waist Patient may shower, but do not soak in a tub or apply creams or lotions to incision Patient cannot drive while using opioid pain medications or muscle relaxants Avoid NSAIDs such as Ibuprofen, Advil, Aleve, Naproxen, and Mobic. Follow up with Dr. Prasad in 10-14 days for suture removal Call the office with questions or concerns, documented in this encounter* Instructions* Candace Lofton MD - 04/15/2020 As discussed, please follow-up with your neurosurgeon by the end of the week. Please return to the emergency department if your symptoms change or worsen. There is a chance that you may be early in the course of a disease process that did not reveal itself today. For this reason you should follow up in 24 hours for re-evaluation with either your primary care physician or if necessary, return here to the Emergency Department. You should return to the Emergency Department immediately if your symptoms worsen or new symptoms develop. * Attachments The following attachments cannot be sent through Care Everywhere. * Pain Post-Surgery: Acute (Kittitian) documented in this encounter* Attachments The following attachments cannot be sent through Care Everywhere. * Low Back Contusion (Kittitian) * Sciatica (Kittitian) documented in this encounter* Instructions* Casie Vickers RN - 04/04/2020 No Smoking 24 hours prior to surgery. No Motrin, Ibuprofen, or Advil 24 hours prior to surgery, or longer if instructed by your surgeon. No Aleve or Naprosyn 3 days prior to surgery, or longer if instructed by your surgeon. Do NOT take the following medications on the morning of surgery-Adderall. TAKE the following medications the morning of your surgery-none. You may take Tylenol (Acetaminophen) if needed for pain. You will receive a reminder call the day before surgery with your Same Day Surgery arrival time. If you have specific questions, please call your surgeon. Please bring your [facility] Surgical Information folder on the day of surgery. Please bring a photo ID and insurance information to 1st floor surgery. * Attachments The following attachments cannot be sent through Care Everywhere. * Lumbar Laminectomy: Pre-op (Kittitian) * Lumbar Spinal Fusion: Pre-op (Kittitian) * Lumbar Spinal Fusion: Post-op (Kittitian) documented in this encounter* Attachments The following attachments cannot be sent through Care Everywhere. * Numbness and Tingling (Kittitian) * Pain Post-Surgery: Acute (Kittitian) documented in this encounter History of Present Illness * Abundio Mosley PA-C - 04/14/2020 10:13 AM EDT Subjective: S/p L3-5 decompression and fusion. Low back pain and spasm some better. Still with some numbness inthe RLE to the knee. Drain 70cc last shift. Physical Exam: Alert and oriented Motor strength at least 4+/5 UE and LE Sensation intact to light touch, slightly diminished in RLE Incision C/D/I, VIRGILIO drain removed Assessment/Plan: POD3 s/p L3-5 decompression and fusion. Recovering slowly, ready to go home. Drain removed without difficulty, staple placed. Discharge instructions given, follow up with Dr Prasad in 10-14 days for suture removal. Discussed with Dr Baron and Dr Mccullough. Abundio Mosley PA-C * Nemo Londono PTA - 04/13/2020 1:21 PM EDT Physical Therapy Attempted PT. Pt just getting up to go to the bathroom and states she has lunch coming. Will re-attempt as schedule allows. Nemo Londono PTA * Tiffany Gomez - 04/13/2020 10:36 AM EDT .Nutrition rescreen completed. Chart reviewed. Patient to be monitored and followed by the diet automotive technician.Tiffany Gomez DT * Abundio Mosley PA-C - 04/13/2020 8:27 AM EDT Subjective: S/p L3-5 decompression and fusion. Low back pain and spasm some better. Some occasional shooting pain and tingling in the RLE to the knee. States she has a yeast infection from antibiotics. PT recommending home with assist. Drain 60cc last shift. Physical Exam: Alert and oriented Motor strength at least 4+/5 UE and LE Sensation intact to light touch, slightly diminished in RLE Incision C/D/I, VIRGILIO drain in place Assessment/Plan: POD2 s/p L3-5 decompression and fusion. Recovering slowly. Keep drain today, encourage working withPT and ambulation. Will add single dose of diflucan. Wean off dilaudid with hopefull discharge to home tomorrow. Abundio Mosley PA-C * Raven Valero RN - 04/13/2020 4:39 AM EDT Per director industrial nursing pt refused morning vital signs because she is in to much pain. This nurse gave pt pain medication. Pt is now resting quietly in bed. Will continue to monitor. * Myles Lassiter, PT - 04/12/2020 12:27 PM EDT Physical Therapy Facility/Department: [facility] Initial Assessment NAME: Bernie Yi : 1975 Date of Service: 04/12/2020 Discharge Recommendations: Home with assist PRN PT Equipment Recommendations Other: tbd Assessment Body structures, Functions, Activity limitations: Decreased functional mobility ;Decreased ADL status;Increased pain;Decreased strength;Decreased balance;Decreased endurance Assessment: Pt. able to ambulate functional distance with fww. Mobility mostly limited by pain. Anticipate discharge to home with assist as needed. Treatment Diagnosis: difficulty walking. Prognosis: Fair Decision Making: Low Complexity PT Education: Goals;PT Role;Plan of Care REQUIRES PT FOLLOW UP: Yes Activity Tolerance Activity Tolerance: Patient limited by pain Patient Diagnosis(es): There were no encounter diagnoses. has a past medical history of Acne, Attention deficit hyperactivity disorder, Cancer (HCC), Chronicback pain, Depression, Hypertension, Irregular heart beat, Perimenopausal vasomotor symptoms, Seasonal allergies, and DESMOND (stress urinary incontinence, female). has a past surgical history that includes Endometrial ablation (01/2016) and cyst removal (Left). Restrictions Restrictions/Precautions Restrictions/Precautions: Surgical Protocols Required Braces or Orthoses?: No(No bracing ordered.) Position Activity Restriction Spinal Precautions: spine precaution for comfort Vision/Hearing Vision: Within Functional Limits Hearing: Within functional limits Subjective General Chart Reviewed: Yes Patient assessed for rehabilitation services?: Yes Family / Caregiver Present: Yes Diagnosis: Spondylolisthesis of lumbar region Follows Commands: Within Functional Limits General Comment Comments: S/p L2-L5 decompression and fusion. Subjective Subjective: Pt. laying in bed, agree with PT treatment. Pain Screening Patient Currently in Pain: Yes Pain Assessment Pain Assessment: 0-10 Pain Level: 10 Pain Type: Surgical pain Pain Location: Back Functional Pain Assessment: Prevents or interferes some active activities and ADLs Non-Pharmaceutical Pain Intervention(s): Ambulation/Increased Activity;Distraction;Repositioned Vital Signs Patient Currently in Pain: Yes Orientation Orientation Overall Orientation Status: Within Functional Limits Social/Functional History Social/Functional History Lives With: Spouse Type of Home: House Home Layout: One level Home Access: Stairs to enter with rails Entrance Stairs - Number of Steps: 2 ADL Assistance: Independent Homemaking Assistance: Independent Ambulation Assistance: Independent Transfer Assistance: Independent Cognition Cognition Overall Cognitive Status: WFL Objective Observation/Palpation Posture: Fair Observation: VIRGILIO drain AROM RLE (degrees) RLE AROM: WFL AROM LLE (degrees) LLE AROM : WFL Strength RLE Strength RLE: WFL Strength LLE Strength LLE: WFL Tone RLE RLE Tone: Normotonic Tone LLE LLE Tone: Normotonic Motor Control Gross Motor?: WNL Sensation Overall Sensation Status: WFL Bed mobility Supine to Sit: Supervision Scooting: Supervision Comment: HOB elevated, educated with log rolling technique Transfers Sit to Stand: Modified independent Stand to sit: Modified independent Ambulation Ambulation?: Yes WB Status: No restriction More Ambulation?: Yes Ambulation 1 Surface: level tile Device: No Device;Hand-Held Assist Assistance: Contact guard assistance Gait Deviations: Slow Maty;Decreased step length;Decreased step height Distance: 10 ft Ambulation 2 Surface - 2: level tile Device 2: Rolling Walker Assistance 2: Supervision Gait Deviations: Slow Maty;Decreased step length;Decreased step height Distance: 75 ft Stairs/Curb Stairs?: No Balance Posture: Fair Sitting - Static: Good Sitting - Dynamic: Good Standing - Static: Good;- Standing - Dynamic: Good;- Plan Plan Times per week: 5x/wk Plan weeks: 2 Current Treatment Recommendations: Strengthening, Transfer Training, Balance Training, Gait Training, Home Exercise Program, Functional Mobility Training, Stair training Safety Devices Type of devices: Call light within reach, Left in chair, Gait belt(N95 and faceshield, pt wearing gigi. Visitor at bedside) Restraints Initially in place: No G-Code OutComes Score AM-PAC Score AM-PAC Inpatient Mobility Raw Score : 23 (04/12/201226) AM-PAC Inpatient T-Scale Score : 56.93 (04/12/201226) Mobility Inpatient CMS 0-100% Score: 11.2 (04/12/201226) Mobility Inpatient CMS G-Code Modifier : CI (04/12/201226) Goals Short term goals Time Frame for Short term goals: 2 weeks Short term goal 1: bed mobility modified independent Short term goal 2: ambulate with/without device, modified independent Short term goal 3: negotiate 4 steps, supervision Patient Goals Patient goals : To go home. Patient s Physical Therapy Plan of Care supervision is transferred to [facility] Physical Therapist. Therapy Time Individual Concurrent Group Co-treatment Time In 1158 Time Out 1208 Minutes 10 Myles Lassiter, PT,GCS * Abundio Mosley PA-C - 04/12/2020 8:38 AM EDT Subjective: S/p L3-5 decompression and fusion. Complaining of a lot of low back pain and spasm. Did not sleep overnight. Had some shooting pain down right leg earlier but its gone now. Denies numbness or new weakness in the legs, weakness in the left leg unchanged. Cote just removed. Has not ambulated yet, tolerating PO intake. Drain 255cc last shift. Physical Exam: Alert and oriented Motor strength at least 4+/5 UE and LE except 4-/5 LLE Sensation intact to light touch Incision C/D/I, VIRGILIO drain in place Assessment/Plan: POD1 s/p L3-5 decompression and fusion. Pre-op weakness in LLE unchanged. Complaining of severe lowback pain likely due to muscle spasm. Will add flexeril PRN and acute pain service was consulted. Keep drain today, encourage PT evaluation and ambulation. Abundio Mosley PA-C documented in this encounter* Myles Lassiter, PT - 04/17/2020 9:48 AM EDT Physical Therapy Facility/Department: [facility] Initial Assessment NAME: Bernie Yi : 1975 Date of Service: 04/17/2020 Discharge Recommendations: Home with Home health PT PT Equipment Recommendations Other: owns fww Assessment Body structures, Functions, Activity limitations: Decreased functional mobility ;Decreased ADL status;Decreased strength;Increased pain Assessment: Pt. ambulated short distance with fww. No overt LOB noted. Mobilty mostly limited by pain. Recommend LS corset for comfort pending neurosurg approval. Anticipate discharge to home with assist as needed. Recommend home care PT. Treatment Diagnosis: difficulty walking Prognosis: Fair Decision Making: Low Complexity PT Education: Goals;PT Role;Plan of Care REQUIRES PT FOLLOW UP: Yes Activity Tolerance Activity Tolerance: Patient limited by pain Patient Diagnosis(es): The encounter diagnosis was Intractable back pain. has a past medical history of Acne, Attention deficit hyperactivity disorder, Cancer (HCC), Chronicback pain, Depression, Hypertension, Irregular heart beat, Perimenopausal vasomotor symptoms, Seasonal allergies, and DESMOND (stress urinary incontinence, female). has a past surgical history that includes Endometrial ablation (01/2016) and cyst removal (Left). Restrictions Restrictions/Precautions Restrictions/Precautions: Surgical Protocols Required Braces or Orthoses?: No(Will recommend LS corset for comfort. Notified Dr. Hung, advised PT to check with neurosug. Notified RN.) Position Activity Restriction Spinal Precautions: Spinal precaution for comfort. Vision/Hearing Vision: Within Functional Limits Hearing: Within functional limits Subjective General Chart Reviewed: Yes Additional Pertinent Hx: Recently underwent L3, L4, AND L5 LAMINECTOMIES, L3-L5 FUSION, PEDICLE SCREW FIXATION, Family / Caregiver Present: No Diagnosis: Intractable back pain Follows Commands: Within Functional Limits General Comment Comments: c/o of back pain. Recently underwent L3, L4, AND L5 LAMINECTOMIES, L3- L5 FUSION, PEDICLE SCREW FIXATION Subjective Subjective: Pt. laying in bed, agree with PT treatment. C/o back pain. Pain Screening Patient Currently in Pain: Yes Pain Assessment Pain Assessment: 0-10 Pain Level: 9 Pain Type: Acute pain;Surgical pain Pain Location: Back Pain Orientation: Lower Functional Pain Assessment: Prevents or interferes some active activities and ADLs Non-Pharmaceutical Pain Intervention(s): Ambulation/Increased Activity;Repositioned Vital Signs Patient Currently in Pain: Yes Orientation Orientation Overall Orientation Status: Within Functional Limits Social/Functional History Social/Functional History Lives With: Spouse Type of Home: House Home Layout: One level Home Access: Stairs to enter with rails Entrance Stairs - Number of Steps: 2 Bathroom Toilet: Standard Bathroom Equipment: Shower chair Home Equipment: Rolling walker Receives Help From: Family ADL Assistance: Independent Homemaking Assistance: Independent Homemaking Responsibilities: No Ambulation Assistance: Independent Transfer Assistance: Independent Additional Comments: Fiance able to provide assist. Cognition Cognition Overall Cognitive Status: WFL Objective Observation/Palpation Observation: well approximated, no drainage incision on back. AROM RLE (degrees) RLE General AROM: hip and knee slightly flexed during standing AROM LLE (degrees) LLE General AROM: hip and knee slightly flexed during standing Strength RLE Comment: 4-/5 Strength LLE Comment: 4-/5 Tone RLE RLE Tone: Normotonic Tone LLE LLE Tone: Normotonic Motor Control Gross Motor?: WFL Bed mobility Rolling to Right: Supervision Sit to Supine: Minimal assistance Scooting: Stand by assistance Comment: log rolling Transfers Sit to Stand: Stand by assistance Stand to sit: Stand by assistance Ambulation Ambulation?: Yes More Ambulation?: No Ambulation 1 Surface: level tile Device: Rolling Walker Assistance: Stand by assistance Quality of Gait: both hips and knees slightly flexed. Gait Deviations: Slow Maty;Decreased step length;Decreased step height Distance: 25 ft Stairs/Curb Stairs?: No Balance Posture: Poor Sitting - Static: Good Sitting - Dynamic: Good Standing - Static: Fair;+ Standing - Dynamic: Fair;+ Plan Plan Times per week: 3-5x/wk Plan weeks: 2 Current Treatment Recommendations: Strengthening, Transfer Training, Balance Training, Gait Training, Home Exercise Program, Functional Mobility Training, Stair training Safety Devices Type of devices: Call light within reach, Gait belt, Left in chair, Nurse notified(N95 and faceshield) Restraints Initially in place: No G-Code OutComes Score AM-PAC Score AM-PAC Inpatient Mobility Raw Score : 18 (04/17/20947) AM-PAC Inpatient T-Scale Score : 43.63 (04/17/20947) Mobility Inpatient CMS 0-100% Score: 46.58 (04/17/20947) Mobility Inpatient CMS G-Code Modifier : CK (04/17/20947) Goals Short term goals Time Frame for Short term goals: 2 weeks Short term goal 1: bed mobility modified independent Short term goal 2: transfers modified indpendent Short term goal 3: ambulate 150 ft, fww, modified independent Short term goal 4: negotiate 2 steps, supervision Patient Goals Patient goals : To go home Patient s Physical Therapy Plan of Care supervision is transferred to [facility] Physical Therapist. Plan to be activated only if patient is admitted or for assessing discharge needs. Therapy Time Individual Concurrent Group Co-treatment Time In 904 Time Out 0925 Minutes 20 Myles Lassiter PT,GCS documented in this encounter Assessments Diagnosis Spondylolisthesis of lumbar region Acquired spondylolisthesis Diagnosis Postoperative pain after spinal surgery Diagnosis Lumbar contusion, initial encounter Radiculopathy of lumbosacral region Thoracic or lumbosacral neuritis or radiculitis, unspecified Diagnosis Intractable back pain Backache, unspecified Intractable pain Other chronic pain Diagnosis Postoperative pain after spinal surgery Paresthesias Disturbance of skin sensation Hospital Course Note Discharge Summary Bernie Gaines : 1975 ADMIT DATE: 04/11/2020 DISCHARGE DATE: 04/14/2020 PRIMARY CARE PHYSICIAN: Mark Mancilla MD VISIT STATUS: Admission CODE STATUS: Full Code DISCHARGE DIAGNOSES: Active Problems: Spondylolisthesis of lumbar region Resolved Problems: * No resolved hospital problems. * SURGICAL PROCEDURES: L3, L4, AND L5 LAMINECTOMIES, L3-L5 FUSION, PEDICLE SCREW FIXATION, AND USE OF MEDTRONIC HARDWARE on 04/11/[address] Prasad. HOSPITAL COURSE: The patient was admitted to the hospital on the day of surgery and underwent the above noted procedure. Post-operatively, the patient was transferred to the PACU in stable condition and then to [facility]. They received 24 hours of prophylactic intravenous antibiotics. DVT prophylaxis included SCDs and early ambulation. Diet was advanced, patient was ambulated and able to urinate, and pain was reasonably controlled. The patient progressed well throughout the hospitalization and was deemed stable for discharge (more content not included)... Note Discharge Summary Bernie Gaines : 1975 ADMIT DATE: 04/17/2020 DISCHARGE DATE: 04/18/2020 PRIMARY CARE PHYSICIAN: Mark Mancilla MD VISIT STATUS: Observation CODE STATUS: Full Code DISCHARGE DIAGNOSES: Active Problems: Intractable pain Intractable back pain Resolved Problems: * No resolved hospital problems. * #intractable back pain s/p L3, L4, AND L5 LAMINECTOMIES, L3-L5 FUSION, PEDICLE SCREW FIXATION, AND USE OF MEDTRONIC HARDWARE?on 04/11/2020 ? #HTN #ADHD HOSPITAL COURSE: Bernie is a 45 y.o. female with past medical history below who presents with CC of back pain. Recently underwent L3, L4, AND L5 LAMINECTOMIES, L3-L5 FUSION, PEDICLE SCREW FIXATION, AND USE OF MEDTRONIC HARDWARE?on 04/11/[address] Prasad. She reports increasing pain over the past 3 days prompting her to return to the ER. NS consulted, recommended PT and pain management. Patient improved and was cleared for DC to home. PT recommended home with assist as needed. CONSULTANTS: neurosurgery Physi (more content not included)... Reason for Referral Specialty Diagnoses / Procedures Referred By Bill monroe Referred To Contact Ent - Otolaryngology Diagnoses Recurrent sinus infections Procedures CONSULT TO ENT OFFICE/OUTPATIENT [facility] 60-74 MINUTES Richie Bob, CAR[facility] [address] [place] [address] Referral ID Status Reason Start Date Expiration Date Visits Requested Visits Authorized [id number] Pending Review PCP Requested Referral 10/26/2021 10/26/2022 1 1 Specialty Diagnoses / Procedures Referred By Bill monroe Referred To Contact Pain Medicine / Pain Management Diagnoses Sacral insufficiency fracture, initial encounter Chronic midline low back pain, unspecified whether sciatica present History of lumbar fusion Brandon Fiore MD [address] [place] [address] [facility] [address] [place] [address] Referral ID Status Reason Start Date Expiration Date V isits Requested Visits Authorized [id number] Open Specialty Services Required 01/27/2022 01/27/2023 1 1 Scheduling Instructions [facility] [place] [address] Formerly [facility], [facility]. [id number] Comments The patient can be scheduled with any member of the group, including the provider with the first available appointments. Health Concerns Infection Onset Date Last Indicated Resolved Time Influenza 05/20/2023 05/20/2023 05/27/2023 8:51 PM EST Additional Source Comments INFORMATION SOURCE (unrecogn ized section and content) DATE CREATED AUTHOR AUTHOR'S ORGANIZ ATION 01/26/2020 [facility] DATE CREATED AUTHOR AUTHOR'S ORGANIZ ATION 05/22/2020 [facility] DATE CREATED AUTHOR AUTHOR'S ORGANIZ ATION 07/11/2020 [facility] DATE CREATED AUTHOR AUTHOR'S ORGANIZ ATION 01/28/2022 [facility] DATE CREATED AUTHOR AUTHOR'S ORGANIZ ATION 05/23/2023 [facility] DATE CREATED AUTHOR AUTHOR'S ORGANIZ ATION 07/07/2023 [facility] Reason for Visit (unrecogniz ed section and content) Specialty Diagnoses / Procedures Referred By Bill monroe Referred To Contact Family Medicine / FAMILY MEDICINE Diagnoses Return in about 3 months (around 03/26/2022) for follow up - Virtually . Procedures VIDEO PRIMARY Richie Barroso PA-C [address] [place] [address] Richie Bob PA-C [address] [place] [address] Referral ID Status Reason Start Date Expiration Date V isits Requested Visits Authorized [id number] Denied Financial Clearance Required - Self Pay Clearance Not Met - Admin/Publicity Expert /Director Advise to Postpone/Jabier edule or Not Proceed 03/23/2022 06/21/2022 1 0 Reason Comments Back Pain back surgery tuesday, DC from hospital yesterday, patient complains of increased pain that woke her up out of sleep at 0100 with tingling in the right leg. No loss of bowel or bladder, sensation and pulses intact. Reason Comments Back Pain Fall this morning. fall a nd slipped on rug in bathroom Reason Comments Back Pain pt c/o low back pain . pt states that she had back surgery tuesday and was released tuesday. states her pain has never been controlled since being released. c/o sharp/ pressure pain in her low pain/ hip pain and R knee pain. Reason Comments Back Pain Specialty Diagnoses / Procedures Referred By Bill monroe Referred To Contact Family Practice / FAMILY MEDICINE Diagnoses medication review Procedures 4C EST Richie Bob PA-C [address] [facility] [place] [place] [address] Richie Bob PA-C [address] [place] [address] Referral ID Status Reason Start Date Expiration Date V isits Requested Visits Authorized [id number] Closed Financial Clearance Required - Self Pay Patient Cleared - Admin/Publicity Expert /Director advise to proceed 12/24/2021 03/24/2022 1 1 Reason Comments Back Pain Reason Comments Patient Question Specialty Diagnoses / Procedures Referred By Contac t Referred To Contact Family Medicine / FAMILY MEDICINE Diagnoses 3 MONTH FOLLOW UP Procedures 4C EST Richie Bob PA-C [address] [place] [address] Richie Bob PA-C [address] [place] [address] Referral ID Status Reason Start Date Expiration Date V isits Requested Visits Authorized [id number] Closed Financial Clearance Required - Self Pay Clearance Not Met - Admin/Publicity Expert /Director Advise to Postpone/Jabier edule or Not Proceed Patient Cleared - INN Insurance Found 06/28/2022 09/26/2022 1 1 Reason Onset Date Comments PHMA/Care Gap Outreach 07/19/2022 Breast ca ncer screening Reason Comments Medication Problem Reason Onset Date Comments Refill Request 10/27/2022 Reason Comments Medication Problem VYVANSE Reason Comments F/U 3 months Refill Request Specialty Diagnoses / Procedures Referred By Contac t Referred To Contact Ent - [facility]ol[facility]ology / [facility] Diagnoses Chronic sinusitis, unspecified location Procedures CONSULT TO ENT OFFICE/OUTPATIENT [facility] 60-74 MINUTES Richie Bob PA-C [address] [place] [address] [facility] [address] [place] [address] Referral ID Status Reason Start Date Expiration Date Visits Requested Visits Authorized [id number] Authorized PCP Requested Referral Financial Clearance Required - Self Pay Patient Cleared - Qualified HCAP/501/FA 02/17/2023 05/18/2023 99 99 Reason Comments Appointment 06/02/2023 Dr. Tovar appt cancellation Reason Comments Refill Request Source Comments (unrecognize d section and content) In the event this informatio n is protected by the Federal Confidentiality of Alcohol and Drug Abuse Patient Records regulations: The Federal rules restrict any use of the information to criminally investigate or prosecute any alcohol or drug abuse patient.[facility] System[facility] the event this information is protected by the Federal Confidentiality of Alcohol and Drug Abuse Patient Records regulations: The Federal rules restrict any use of the information to criminally investigate or prosecute any alcohol or drug abuse patient.[facility] SystemIn the event this information is protected by the Federal Confidentiality of Alcohol and Drug Abuse Patient Records regulations: The Federal rules restrict any use of the information to criminally investigate or prosecute any alcohol or drug abuse patient.[facility] SystemIn the event this information is protected by the Federal Confidentiality of Alcohol and Drug Abuse Patient Records regulations: The Federal rules restrict any use of the information to criminally investigate or prosecute any alcohol or drug abuse patient.[facility] SystemIn the event this information is protected by the Federal Confidentiality of Alcohol and Drug Abuse Patient Records regulations: The Federal rules restrict any use of the information to criminally investigate or prosecute any alcohol or drug abuse patient.[facility] SystemIn the event this information is protected by the Federal Confidentiality of Alcohol and Drug Abuse Patient Records regulations: The Federal rules restrict any use of the information to criminally investigate or prosecute any alcohol or drug abuse patient.[facility] SystemIn the event this information is protected by the Federal Confidentiality of Alcohol and Drug Abuse Patient Records regulations: The Federal rules restrict any use of the information to criminally investigate or prosecute any alcohol or drug abuse patient.[facility] SystemIn the event this information is protected by the Federal Confidentiality of Alcohol and Drug Abuse Patient Records regulations: The Federal rules restrict any use of the information to criminally investigate or prosecute any alcohol or drug abuse patient.[facility] SystemIn the event this information is protected by the Federal Confidentiality of Alcohol and Drug Abuse Patient Records regulations: The Federal rules restrict any use of the information to criminally investigate or prosecute any alcohol or drug abuse patient.[facility] SystemIn the event this information is protected by the Federal Confidentiality of Alcohol and Drug Abuse Patient Records regulations: The Federal rules restrict any use of the information to criminally investigate or prosecute any alcohol or drug abuse patient.[facility] SystemIn the event this information is protected by the Federal Confidentiality of Alcohol and Drug Abuse Patient Records regulations: The Federal rules restrict any use of the information to criminally investigate or prosecute any alcohol or drug abuse patient.[facility] SystemIn the event this information is protected by the Federal Confidentiality of Alcohol and Drug Abuse Patient Records regulations: The Federal rules restrict any use of the information to criminally investigate or prosecute any alcohol or drug abuse patient.[facility] SystemIn the event this information is protected by the Federal Confidentiality of Alcohol and Drug Abuse Patient Records regulations: The Federal rules restrict any use of the information to criminally investigate or prosecute any alcohol or drug abuse patient.[facility] SystemIn the event this information is protected by the Federal Confidentiality of Alcohol and Drug Abuse Patient Records regulations: The Federal rules restrict any use of the information to criminally investigate or prosecute any alcohol or drug abuse patient.[facility] SystemIn the event this information is protected by the Federal Confidentiality of Alcohol and Drug Abuse Patient Records regulations: The Federal rules restrict any use of the information to criminally investigate or prosecute any alcohol or drug abuse patient.[facility] Care Teams (unrecognized sec tion and content) Bin Packer Relationship Specialty Start Date End Date Richie Bob PA-C [address] [place], [place] [id number] PCP - General Family Practice 04/07/17 Bin Packer Relationship Specialty Start Date End Date Mark Mancilla MD [address] [place] [address], [place] [address] PCP - General Internal Medicine 07/26/17 Bin Packer Relationship Specialty Start Date End Date Mark Mancilla MD [address] [place] [address], [place] [address] PCP - General Internal Medicine 07/26/17 Bin Packer Relationship Specialty Start Date End Date Richie Bob PA-C [address] [place] [address], [place] [address] PCP - General Family Medicine 04/07/17 Bin Packer Relationship Specialty Start Date End Date Richie Bob PA-C [address] [place] [address], [place] [address] PCP - General Family Medicine 04/07/17 Bin Packer Relationship Specialty Start Date End Date Richie Bob PA-C [address] [place] [address], [place] [address] PCP - General Family Medicine 04/07/17 Bin Packer Relationship Specialty Start Date End Date Richie Bob PA-C [address] [place] [address], [place] [address] PCP - General Family Medicine 04/07/17 Bin Packer Relationship Specialty Start Date End Date Richie Bob PA-C [address] [place] [address], [place] [address] PCP - General Family Medicine 04/07/17 Bin Packer Relationship Specialty Start Date End Date Richie Bob PA-C [address] [facility] [place] [address] PCP - General Family Medicine 04/07/17 Bin Packer Relationship Specialty Start Date End Date Richie Bob PA-C [address] [facility] [place] [address] PCP - General Family Medicine 04/07/17 Bin Packer Relationship Specialty Start Date End Date Richie Bob PA-C [address] [facility] [place] [address] PCP - General Family Medicine 04/07/17 Bin Packer Relationship Specialty Start Date End Date Richie Bob PA-C [address] [place] [address], [place] [address] PCP - General Family Medicine 04/07/17 Bin Packer Relationship Specialty Start Date End Date Richie Bob PA-C [address] [place] [address], [place] [address] PCP - General Family Medicine 04/07/17 Bin Packer Relationship Specialty Start Date End Date Richie Bob PA-C [address] [place] [address], [place] [address] PCP - General Family Medicine 04/07/17 Bin Packer Relationship Specialty Start Date End Date Richie Bob PA-C [address] [place] [address], [place] [address] PCP - General Family Medicine 04/07/17 Bin Packer Relationship Specialty Start Date End Date Richie Bob PA-C [address] [place] [address] PCP - General Family Medicine 04/07/17 Ordered Prescriptions (unrec ognized section and content) Scheduled Active and Recently Administ ered Medications (unrecognized section and content) FOR RECORDS PERTAINING TO PATIENTS WHO ARE OR HAVE BEEN ENROLLED IN A CHEMICAL DEPENDENCY/SUBSTANCEABUSE PROGRAM, SOME INFORMATION MAY BE OMITTED. This clinical summary was aggregated from multiple sources. Caution should be exercised in using it in the provision of clinical care. This summary normalizes information from multiple sources, and as a consequence, information in this document may materially change the coding, format and clinical context of patient data. In addition, data may be omitted in some cases. CLINICAL DECISIONS SHOULD BE BASED ON THE PRIMARY CLINICAL RECORDS. [facility] [employer] provides no warranty or guarantee of the accuracy or completeness of information in this document.
--- NOTE | 2023-08-02 23:16 | ED.VIS.GI ---
HPI HPI - GI History of Present Illness Chief Complaint: Diarrhea Informant: patient, spouse/S.O. and EMS Narrative Narrative: Patient states she has been constipated for the past 5 days, not able to have a bowel movement. She denies any changes in her diet recently or an obvious reason for this, stating that having constipation is streaming unusual for her, she usually has loose bowels or diarrhea. In order to solve this, she drank 2 ounces of castor oil today, resulting in a profuse amount of yellow-green liquid diarrhea. Upon going to the bathroom at 1 point tonight, she passed out on the toilet and according to the who had an episode that appeared like seizure-like activity, that lasted 30 seconds or so, she woke up just after this ended. Then she eventually got up off the toilet and upon standing up was lightheaded collapsed to the floor without apparent injury, either near syncope or syncope again, he states this happened for 5 times total. She states in the past 5 days she has been having lower abdominal cramping off and on, especially when she was having diarrhea today it was worse. She states she is nauseated at times and is now, but has not had any vomiting. No history of any abdominal surgeries. She states also for the past 4 days, she has had multiple episodes where she felt like she needed to urinate but was unable to go, and she states that is the case right now. [facility] Medical History ADD (attention deficit disorder) Hypertension Home Medications lisdexamfetamine 10 mg capsule (Vyvanse) 10 mg PO DAILY 08/02/23 [History Last Taken Unknown] hyoscyamine sulfate 0.125 mg disintegrating tablet 0.125 mg PO Q6H PRN dyspepsia #10 tabs 08/03/23 [Rx Last Taken Unknown] Allergy/AdvReac Type Severity Reaction Status Date / Time morphine Allergy Hives Verified 08/02/23 22:22 nitrofurantoin Allergy Hives Verified 08/02/23 22:22 [From Macrobid] Surgical History History of back surgery Social History Smoking Status: Current every day smoker tobacco type: cigarettes ROS ROS ED Constitutional Constitutional ED: Denies chills or fever(s) Eyes Eyes: Denies change in vision or diplopia ENT ENT ED: Reports dry mouth; Denies rhinorrhea or sore throat Cardiovascular Cardiovascular: Reports syncope; Denies chest pain, leg edema or palpitations Respiratory/Chest Respiratory/Chest: Denies cough or dyspnea Gastrointestinal Gastrointestinal: Reports as per HPI, abdominal pain, constipation, diarrhea and nausea; Denies vomiting Genitourinary Genitourinary ED: Reports as per HPI and urinary urgency; Denies dysuria, hematuria or urinary incontinence Musculoskeletal Musculoskeletal: Denies back pain or neck pain Integumentary Denies abscess or rash Neurologic Neurologic: Denies headache(s), paresthesias or weakness Psychiatric Psychiatric: Denies anxiety or suicidal thoughts EXAM Physical Exam Const Vital Signs: 08/02/23 22:22 08/02/23 22:24 08/03/23 00:36 Temperature 97.7 F L 97.7 F L 97.9 F Temperature Source Oral Oral Temporal Pulse Rate 78 78 88 Respiratory Rate 16 16 18 Blood Pressure 165/94 H 165/94 H 140/75 H Blood Pressure Mean 117 117 96 Pulse Ox 100 100 98 Oxygen Delivery Method Room Air Positive well nourished and well developed General Appearance ED: well developed and NAD HEENT Reports dry mucous membranes normocephalic and atraumatic Mouth ED: Yes dry mucous membranes Mouth: dry mucous membranes Eyes PERRL and EOMs intact bilaterally Neck full ROM and supple Resp normal respiratory effort and clear to auscultation bilaterally Cardio regular rate, regular rhythm and no murmurs Rate: Negative for tachycardic GI non-distended GI Narrative: Tender epigastrium and suprapubic areas. No guarding or rebound. No distention. Normal bowel sounds present. Auscultation: normoactive bowel sounds Palpation: soft Back/Spine no CVA tenderness General Back: other FROM Extremity normal to inspection General Extremety ED: Negative for edema, pulses abnormal or tenderness General Extremity: Negative for edema or pulses abnormal Neuro oriented x3, CN's II-XII intact bilaterally and no sensory deficits noted Sensorium / Orientation: awake and alert Motor Exam: strength 5/5 throughout Psych mental status grossly normal and thought process normal Skin no rashes or lesions noted and no wounds MDM MDM MDM Narrative Medical decision making narrative: Labs show leukocytosis, mild hypokalemia but the rest of her chemistries and liver enzymes are normal. Urine is concentrated with high specific gravity consistent with mild dehydration, but shows no acute infection. Given the leukocytosis and urinary symptoms without evidence of infection on the urinalysis, I think a CT of the abdomen/pelvis is warranted to see if she has a bowel obstruction, obstipation that could be causing urinary retention, or other intra-abdominal inflammatory disorder that could help decipher the etiology of her symptoms. In the meantime she was given IV fluids & Zofran. I reviewed the CT images and the report which I agree with, it is basically negative for any major acute finding. It is noted that there is some mild mucosal prominence of the colon raising concern for early colitis. I do not know that this would change my management of her. It is not clear that she has any type of acute infection. She drink castor oil and then subsequently had violent diarrhea, appears to have been mildly dehydrated, and several syncopal episodes probably arising from this, plus or minus vagal phenomena that could have contributed since she was bearing down on the toilet when the first episode occurred. It sounds like she had an episode of myoclonus and not necessarily true seizure activity as I discussed with the patient and , since she did not have a postictal period. She is doing much better after IV fluids and dicyclomine but still having some abdominal discomfort so will be given Toradol. She is tolerating oral fluids, and I will discharge her with a prescription for some hyoscyamine to use as needed for the discomfort. Nursing stood her up after the IV fluids and she is not feeling near syncopal. Follow-up advised if her symptoms do not resolve in 24 hours. Lab Data Attestation: I reviewed the patient's lab results. Labs: Laboratory Results - last 24 hr 08/02/23 08/02/23 23:35 23:48 WBC 14.8 H RBC 4.58 Hgb 15.3 H Hct 44.4 MCV 96.9 MCH 33.4 H MCHC 34.5 RDW Std Deviation 44.2 H RDW Coeff of [place] 12.3 Plt Count 289 MPV 9.9 Immature Gran % (Auto) 0.400 Neut % (Auto) 81.6 H Lymph % (Auto) 11.7 L [place] % (Auto) 5.7 Eos % (Auto) 0.3 Baso % (Auto) 0.3 Absolute Neuts (auto) 12.1 H Absolute Lymphs (auto) 1.73 Nucleated RBC % 0 Sodium 139 Potassium 3.4 L Chloride 104 Carbon Dioxide 22.0 Anion Gap 13 BUN 9 Creatinine 0.78 Estim Creat Clear Calc 78.09 Est GFR (MDRD) Af Amer 100 Est GFR (MDRD) Non-Af 83 BUN/Creatinine Ratio 11.5 Glucose 115 H Calcium 9.6 Total Bilirubin 0.70 AST 23 ALT 30 Alkaline Phosphatase 90 Total Protein 7.9 Albumin 4.4 Globulin 3.5 Albumin/Globulin Ratio 1.3 Urine Color Yellow Urine Clarity Clear Urine pH 5.0 Ur Specific [place] 1.030 Urine Protein 30 H Urine Glucose (UA) Normal Urine Ketones 5 H Urine Occult Blood 10 H Urine Nitrite Negative Urine Bilirubin Negative Urine Urobilinogen Normal Ur Leukocyte Esterase Negative Urine RBC 0 SEEN Urine WBC 0 SEEN Ur Squamous Epith Cells 0 SEEN Urine Bacteria 0 SEEN Urine Mucus 0 SEEN Radiography Diagnostic Testing: Clinical Impression(s) from Imaging Studies Abdomen/Pelvis CT 08/03/23 23:14 IMPRESSION: 1. Mild mucosal prominence of the colon, raising concern for an early colitis of potential infectious or inflammatory etiology. 2. Hypoattenuated foci within the right posterior hepatic segment which most likely represent cysts versus hemangiomas. Dedicated MR imaging could be obtained for further characterization. 3. Small fat-containing umbilical hernia without bowel involvement. Electronically Signed: Willard Gunn MD at 0:33 EST , Discharge Plan Triage Chief Complaint: Diarrhea ED Provider: Ilya Lester Dx/Rx/DC Orders Clinical Impression: Syncope, Mild dehydration, Acute diarrhea, Bilateral lower abdominal pain Instructions: Treating Constipation, ED Dehydration (Adult) Prescriptions: New hyoscyamine sulfate 0.125 mg tablet,disintegrating 0.125 mg PO Q6H PRN (Reason: dyspepsia) Qty: 10 0RF No Action lisdexamfetamine [Vyvanse] 10 mg capsule 10 mg PO DAILY Patient Comments: TAKE 1 CAPSULE BY MOUTH ONCE DAILY FOR 30 DAYS Primary Care Provider: RICHIE HUNT Referrals: RICHIE HUNT [Other] - As soon as possible Disposition Disposition: Home, Self Care
[2023-08-02] MEDS: Ondansetron 4 MG/2 ML Vial IV (23:31)
[2023-08-02] MEDS: 0.9% Normal Saline (1000mL) 2,000 ML 1000 ML IV (23:31)
[2023-08-02 23:45] LABS: Absolute Lymphocyte Count 1.73 X10^3/uL (0.83-4.51); Absolute Neutrophil Count 12.1 X10^3/uL (2.0-7.7); Basophil# 0.04 X10^3/uL; Basophil% 0.3 % (0-1); Eosinophil# 0.05 X10^3/uL; Eosinophils% 0.3 % (0-5); Hematocrit 44.4 % (37-47); Hemoglobin 15.3 g/dL (12.0-15.0); Lymphocyte # 1.73 X10^3/ul (0.83-4.51); Lymphocyte % 11.7 % (19-41); Mean Corp Hgb Conc 34.5 g/dL (32-36); Mean Corpuscular Hgb 33.4 pg (27.0-32.0); Mean Corpuscular Volume 96.9 fL (81-99); Mean Platelet Vol. 9.9 fl (6.2-12.0); Monocyte# 0.84 X10^3/uL; Monocyte% 5.7 % (0-10); NRBC Flagged by Analyzer 0 % (0-5); Neutrophil # 12.11 X10^3/uL (2.7-7.7); Neutrophil % 81.6 % (47-70); Platelet Count 289 K/mm3 (150-450); RBC Distribution Width CV 12.3 % (11.6-14.6); RBC Distribution Width SD 44.2 fl (35.1-43.9); Red Blood Count 4.58 M/mm3 (4.2-5.4); White Blood Count 14.8 K/mm3 (4.4-11.0)
[2023-08-02 23:52] LABS: Bacteria 0 SEEN /hpf (None Seen); Mucous, Urine 0 SEEN /hpf (<or=2+); Red Blood Cells-Urine 0 SEEN /hpf (0-5); Squamous Epithelial Cells - UA 0 SEEN /hpf (5-10); White Blood Cells 0 SEEN /hpf (0-5)
[2023-08-03 00:03] LABS: ALB/GLOB Ratio 1.3 RATIO (0.9-2.4); AST(SGOT) 23 U/L (15-37); Alanine Aminotransfer ALT/SGPT 30 U/L (13-56); Albumin, Serum 4.4 g/dL (3.2-5.0); Alkaline Phosphatase 90 U/L (45-117); Anion Gap 13 (5-15); BUN 9 mg/dL (7-18); BUN/Creat Ratio 11.5 RATIO (10-20); Calcium,Total 9.6 mg/dL (8.5-10.1); Chloride 104 mmol/L (98-107); Creatinine, Serum 0.78 mg/dL (0.55-1.02); EST Glomerular Filtration Rate 83 mL/min (>60); Est Glom Filt Rate - Afr Amer 100 mL/min (>60); Estimated Creatinine Clearance 78.09 ml/min; Globulin 3.5 g/dL (2.2-4.2); Glucose 115 mg/dL (74-106); Potassium 3.4 mmol/L (3.5-5.1); Protein, Total 7.9 g/dL (6.4-8.2); Sodium Level 139 mmol/L (136-145)
[2023-08-03 00:06] LABS: Color, Urine Yellow (Yellow); Glucose, Dipstick Normal (Normal); Ketone-Dipstick 5 mg/dl (Negative); Leukocyte Esterase-Dipstick Negative /ul (Negative); Nitrite-Dipstick Negative (Negative); Occult Blood-Urine 10 /ul (Negative); Protein-Dipstick 30 mg/dl (Negative); Urine Bilirubin Dipstick Negative (Negative); Urine Clarity Clear (Clear); Urine Urobilinogen Normal (Normal)
[2023-08-03 00:36] VITALS: BP 140/75; PULSE 88; RESP 18; TEMP 36.6; O2SAT 98
[2023-08-03 00:51] VITALS: BP 140/75; PULSE 88; RESP 18; TEMP 36.6; O2SAT 98
[2023-08-03] MEDS: Ketorolac 30 MG/ML Syringe IV (00:57)
--- NOTE | 2023-08-03 23:14 | CT_ITS ---
STUDY: CT ABDOMEN AND PELVIS WITH CONTRAST REASON FOR EXAM: Female, 48 years old. Lower abdominal pain RADIATION DOSAGE (If Supplied By Facility): CTDIvol = ( 10.10 ) mGy, DLP = ( 333.72 ) mGycm TECHNIQUE: Spiral CT imaging of the abdomen and pelvis was performed with intravenous contrast material (100mL Isovue-370 / ), followed by coronal and sagittal reformatting. Individualized dose optimization techniques were used for this CT. COMPARISON: No relevant priors. FINDINGS: LOWER CHEST: Normal lung bases. Normal heart. Normal pericardium. LIVER: Hypoattenuated foci noted within the right posterior hepatic segment, too small to characterize. GALLBLADDER AND BILIARY TREE: Normal gallbladder. Normal biliary ductal system. SPLEEN: Normal PANCREAS: Normal ADRENAL GLANDS: Normal KIDNEYS AND URETERS: Normal kidneys. Normal ureters. BOWEL: Normal stomach. Normal small bowel. Normal appendix. Mild mucosal wall thickening of the hepatic flexure, transverse colon, splenic flexure comment descending colon and sigmoid colon.. PERITONEUM: No free intraperitoneal air or fluid. No intra-abdominal fluid collection. LYMPH NODES: No mesenteric, retroperitoneal, or pelvic lymphadenopathy. VESSELS: Normal URINARY BLADDER: Normal REPRODUCTIVE ORGANS: Uterus is normal. Normal mild engorgement of bilateral parametrial and venous structures. ABDOMINAL WALL: Small fat-containing umbilical hernia without bowel involvement. BONES: Mild anterior wedge compression deformity at T11, concerning for a. Posterior lumbar spinal fusion is dilatation noted. Grade L4 on L5 anterolisthesis noted. Moderate degenerative change at the L4-L5 intervertebral disc space. CT/Abdomen/Pelvis W IV Cont ONLY IMPRESSION: 1. Mild mucosal prominence of the colon, raising concern for an early colitis of potential infectious or inflammatory etiology. 2. Hypoattenuated foci within the right posterior hepatic segment which most likely represent cysts versus hemangiomas. Dedicated MR imaging could be obtained for further characterization. 3. Small fat-containing umbilical hernia without bowel involvement. Electronically Signed: Willard Gunn MD at 0:33 EST ,
== END 2023-08-03 01:09 | disposition home or self-care (01) ==
PROVIDERS: Emergency Provider Emergency Medicine; Visit Provider Emergency Medicine
DX: R55 Syncope and collapse (principal); E86.0 Dehydration; R19.7 Diarrhea, unspecified; R10.31 Right lower quadrant pain; R10.32 Left lower quadrant pain; F17.210 Nicotine dependence, cigarettes, uncomplicated
CPT/HCPCS: 51701; 74177; 80053; 81001; 85025; 96361; 96374; 96375; 99283; J7030; P9612; Q9967; A4216; J2405

== ENCOUNTER 2024-01-15 09:09 | Emergency (ER) | payer MEDICAID, SELFPAY ==
[2024-01-15 09:10] VITALS: BP 134/79; PULSE 100; RESP 19; TEMP 37; O2SAT 99; BMI 20.6
--- NOTE | 2024-01-15 09:32 | RAD_ITS ---
STUDY: X-RAY - LEFT WRIST REASON FOR EXAM: Female, 48 years old. Fall. TECHNIQUE: 3 view(s) of the wrist were obtained. COMPARISON: None. FINDINGS: There is a mildly impacted fracture of the distal radius with overlying soft tissue swelling. The remainder the visualized osseous structures are intact. There are no radiodense foreign bodies. RAD/Wrist min 3 Views IMPRESSION: Mildly impacted fracture of the distal radius with overlying soft tissue swelling. Electronically Signed: Stiven Brito MD at 10:01 EDT ,
--- NOTE | 2024-01-15 10:21 | EDS_ITS ---
HPI History of Present Illness Chief Complaint: Upper Extremity Injury Informant: patient and spouse/S.O. Narrative Narrative: 48-year-old female was in the backyard last evening and was playing soccer with her dog when she sustained a fall. She is left-handed. She notes pain and swelling to the left wrist. She denies any other injuries. [facility] Medical History Aneurysm of carotid artery ADD (attention deficit disorder) Hypertension Home Medications ?Medication ?Instructions ?Recorded ?Last Taken ?Type lisdexamfetamine 10 mg capsule 10 mg PO DAILY 08/02/23 Unknown History (Vyvanse) hyoscyamine sulfate 0.125 mg 0.125 mg PO Q6H PRN dyspepsia #10 08/03/23 Unknown Rx disintegrating tablet tabs oxycodone-acetaminophen 5 mg-325 1 tab PO Q6H PRN pain 3 days #12 01/15/24 Unknown Rx mg tablet (Percocet) tabs Allergy/AdvReac Type Severity Reaction Status Date / Time morphine Allergy Hives Verified 08/02/23 22:22 nitrofurantoin (From Allergy Hives Verified 08/02/23 22:22 Macrobid) Surgical History History of back surgery Social History Smoking Status: Current every day smoker tobacco type: cigarettes ROS ROS ED Constitutional Constitutional ED: Denies chills or weight loss Eyes Eyes: Denies change in vision or diplopia ENT ENT ED: Denies ear pain, rhinorrhea or sore throat Cardiovascular Cardiovascular: Denies chest pain, orthopnea, palpitations or racing heartbeat Respiratory/Chest Respiratory/Chest: Denies cough, dyspnea or orthopnea Gastrointestinal Gastrointestinal: Denies abdominal pain, diarrhea, nausea or vomiting Genitourinary Genitourinary ED: Denies dysuria, hematuria or urinary frequency Musculoskeletal Musculoskeletal: Reports other Details: See History of present ; Denies arthralgias, back pain, myalgias or neck pain Integumentary Denies abscess or rash Neurologic Neurologic: Denies headache(s) or weakness Psychiatric Psychiatric: Denies anxiety, depression, suicidal ideation or suicidal thoughts Endocrine Endocrinology: Denies polydipsia, polyphagia or polyuria Allergic/Immunologic Allergic/Immunologic ED: Denies mouth swelling, tongue swelling or urticaria EXAM Physical Exam Const Vital Signs: 01/15/24 09:10 Temperature 98.6 F Temperature Source Temporal Pulse Rate 100 Respiratory Rate 19 H Blood Pressure 134/79 H Blood Pressure Mean 97 Pulse Ox 99 Oxygen Delivery Method Room Air Positive well nourished and well developed General Appearance ED: well developed HEENT Reports normocephalic, head/scalp atraumatic and moist mucous membranes Eyes PERRL and EOMs intact bilaterally Neck no lymphadenopathy, supple and no JVD Resp normal respiratory effort and clear to auscultation bilaterally Cardio regular rate, regular rhythm and no murmurs GI normal to inspection, nondistended, normoactive bowel sounds and non-tender Palpation: soft Back/Spine no CVA tenderness and normal ROM Extremity Extremity Narrative: There is significant swelling and hematoma of the left wrist dorsum greater than volar surface neurovascular intact distal. Significant pain with movement of the left thumb. Neuro oriented x3 and CN's II-XII intact bilaterally Sensorium / Orientation: alert Motor Exam: strength 5/5 throughout Psych mental status grossly normal Mood & Affect: Negative for depressed or tearful Skin no rashes or lesions noted and no wounds MDM MDM MDM Narrative Medical decision making narrative: Differential diagnosis includes but not limited to fracture or ligamentous injury dislocation sprain strain tendon rupture My independent interpretation of the plain films of the left wrist is acute distal radius fracture with soft tissue swelling. Patient was placed in a well- padded plaster AP splint made by this physician. Neurovascular intact pre and post application. Patient will receive a dose of oxycodone here Percocet for home. She has seen [facility] in the past. I will refer her back there for further management. Home care discussed with patient as well as return instructions. She notes understanding of the plan. History & Record Review Discussion w/independent historian: Patient and Significant other Radiography Diagnostic Testing: Clinical Impression(s) from Imaging Studies Wrist X-Ray 01/15/24 09:32 IMPRESSION: Mildly impacted fracture of the distal radius with overlying soft tissue swelling. Electronically Signed: Stiven Brito MD at 10:01 EDT , Discharge Plan Triage Chief Complaint: Upper Extremity Injury ED Provider: Lisandro Trejo Dx/Rx/DC Orders Clinical Impression: Fall, Fx. left wrist Instructions: Wrist Fracture ED Prescriptions: New oxycodone-acetaminophen [Percocet] 5-325 mg tablet 1 tab PO Q6H PRN (Reason: pain) 3 Days Qty: 12 0RF No Action lisdexamfetamine [Vyvanse] 10 mg capsule 10 mg PO DAILY Patient Comments: TAKE 1 CAPSULE BY MOUTH ONCE DAILY FOR 30 DAYS hyoscyamine sulfate 0.125 mg tablet,disintegrating 0.125 mg PO Q6H PRN (Reason: dyspepsia) Qty: 10 0RF Primary Care Provider: RICHIE HUNT Referrals: RICHIE HUNT [Other] Dickson Gomez MD [Med Staff - Active Staff] - As soon as possible Print Language: [place] Disposition Disposition: Home, Self Care
[2024-01-15] MEDS: oxyCODONE 5 MG Tablet PO (10:25)
[2024-01-15 10:26] VITALS: BP 125/75; PULSE 80; RESP 16; TEMP 37; O2SAT 99
== END 2024-01-15 10:30 | disposition home or self-care (01) ==
LOC: ED 10:19
PROVIDERS: Emergency Provider Emergency Medicine; Visit Provider Emergency Medicine
DX: S62.102A Fracture of unspecified carpal bone, left wrist, initial encounter for closed fracture (principal); F17.210 Nicotine dependence, cigarettes, uncomplicated; Y93.66 Activity, soccer; W19.XXXA Unspecified fall, initial encounter
CPT/HCPCS: 73110; 99282; A4216

== ENCOUNTER 2024-11-26 14:27 | Observation (INO) | payer MEDICAID, SELFPAY ==
[2024-11-26] VITALS (7 sets, daily range): BP systolic 124–176; BP diastolic 57–76; PULSE 68–80; RESP 14–20; TEMP 36.3–37.6; O2SAT 97–100; BMI 24.6; BMI 21.1
--- NOTE | 2024-11-26 15:09 | EX.ED.GENINJ ---
HPI History of Present Illness Chief Complaint: Nausea/Vomiting [facility] Medical History Aneurysm of carotid artery ADD (attention deficit disorder) Hypertension Home Medications ?Medication ?Instructions ?Recorded ?Last Taken ?Type celecoxib 200 mg capsule 200 mg PO DAILY 11/26/24 Unknown History lisdexamfetamine 50 mg capsule 50 mg PO DAILY 11/26/24 Unknown History (Vyvanse) prochlorperazine maleate 5 mg 5 mg PO TID PRN nausea and 11/26/24 Unknown Rx tablet (Compazine) vomiting 7 days #20 tabs Allergy/AdvReac Type Severity Reaction Status Date / Time morphine Allergy Hives Verified 11/26/24 14:29 nitrofurantoin (From Allergy Hives Verified 11/26/24 14:29 Macrobid) Surgical History History of back surgery Social History Smoking Status: Current every day smoker tobacco type: cigarettes EXAM Physical Exam Const Vital Signs: 11/26/24 14:29 11/26/24 17:09 11/26/24 19:00 Temperature 99.6 F H Temperature Source Oral Pulse Rate 76 79 79 Respiratory Rate 20 H 18 14 Blood Pressure 145/72 H 142/75 H 135/58 H Blood Pressure Mean 96 97 83 Pulse Ox 100 97 98 Oxygen Delivery Method Room Air Room Air 11/26/24 20:28 11/26/24 21:00 Temperature 98.9 F Temperature Source Pulse Rate 68 76 Respiratory Rate 14 16 Blood Pressure 124/59 H 176/63 H Blood Pressure Mean 80 100 Pulse Ox 100 100 Oxygen Delivery Method Room Air MDM MDM MDM Narrative Medical decision making narrative: HISTORY OF PRESENT ILLNESS: Chief complaint: Multiple complaints 49-year-old female presents multiple complaints including headache, nausea, vomiting, abdominal pain, generalized weakness and eye pain. She states this began several months ago. Worsening the last couple days. No falls or trauma noted. Notes intractable nausea and vomiting, dry heaving. No sick contacts Patient denies sudden onset or thunderclap headache, denies maximal intensity within 1 minute, , neck pain, stiffness, history malignancy, syncope, or seizures associated with headache. Abdominal pain intractable nausea vomiting: Since this morning. Denies history of abdominal surgeries. Denies flank pain. Denies urinary complaints REVIEW OF SYSTEMS: Pertinent positives: As per HPI Pertinent negatives: As per HPI, denies chest pain, shortness of breath PHYSICAL EXAM: Nursing triage notes reviewed, Vital signs reviewed Constitutional: please see [facility] HENT: MMM Eyes: Conjunctiva noninjected, pupils equal round and reactive to light, Extraocular muscles intact, visual acuity grossly intact, visual vieira intact Neck: No stridor, no JVD, full neck ROM Lungs: Clear to auscultation, No wheezing or rales. No increased work of breathing, no conversational dyspnea, no accessory muscle use, no nasal flaring. No respiratory distress noted Heart: Regular rate and rhythm, No murmurs, No rubs and No gallops, 2+ distal pulses (radial, femoral, posterior tibial) in all extremities Abdomen: Soft, nontender no palpable pulsatile abdominal masses, no auscultated abdominal bruit : No CVAT Extremities: No edema Neuro: Alert, oriented to person place and time, moves all 4 extremities, has sensation all 4 extremities, no obvious cranial nerve deficits, no obvious ataxia. Skin: No rash or lesions noted MEDICAL DECISION MAKING: Chief Complaint: please see [facility] External records reviewed: Reviewed prior imaging studies: Reviewed CT scan abdomen pelvis from July 2023 which showed possibly colitis Factors affecting care: ADHD Social determinants of health: none History obtained from others: none Consults: Internal medicine (Dr. Mace) [facility] Narrative: Patient was initially borderline febrile, otherwise hemodynamically stable. Exam without focal neurologic deficits, abdomen soft and nontender. I considered the following differential diagnosis: AAA, small bowel obstruction, abdominal perforation, appendicitis, pancreatitis, hepatobiliary pathology (acute cholecystitis), mesenteric ischemia, pathology (ie nephrolithiasis, pyelonephritis). I obtained a broad lab and imaging workup to further elucidate etiology of the patient's complaints ALL IMAGES (IF OBTAINED) HAVE BEEN PERSONALLY REVIEWED AND INTERPRETED BY MYSELF. CT scan of the brain showed no evidence of ICH or mass CT scan of the abdomen pelvis showed no acute finding CBC with leukocytosis suggestive consistent with admission, no anemia thrombocytopenia BMP with metabolic acidosis and signs of endorgan hypoperfusion likely secondary nausea vomiting. No significant [place] normalities or ISADORA LFTs show no evidence of hepatobiliary pathology. Lipase is wnl indicating no pancreatic inflammation. Serum alcohol negative On reevaluation patient continued to vomit. She was given a liter of fluid and Compazine. This still did not relieve her symptoms and so I decided admit the patient to the hospital for intractable nausea and vomiting. Discussed with Dr. Mace The patient and/or family, caregivers express understanding. The patient and/or family, caregivers agrees with the plan. Shared decision making: I will have a discussion with the patient and or visitors regarding risk/benefits of further testing or admission. They will be made aware of of the risk/benefits inherent in this decision they will be given the opportunity to voice understanding. Total critical care time today provided was at least 0 minutes. This excludes separately billable procedures. Critical care time (if documented) is secondary to the patient having high probability of clinically significant/life threatening deterioration in the patient's condition which required my urgent intervention. Impression: 1. Acute headache 2. Acute abdominal pain 3. Nausea vomiting Dispo: discharge This note was generated with [employer] dictation software. It may contain incorrect words, spelling, and punctuation that were not noted in review of the chart prior to signing. Lab Data Labs: Laboratory Results - last 24 hr 11/26/24 11/26/24 11/26/24 15:59 16:20 17:56 WBC 13.8 H RBC 4.20 Hgb 13.9 Hct 42.0 MCV 100.0 H MCH 33.1 H MCHC 33.1 RDW Std Deviation 44.8 H RDW Coeff of Bishop 12.2 Plt Count 202 MPV 10.4 Immature Gran % (Auto) 0.600 Neut % (Auto) 84.0 H Lymph % (Auto) 9.4 L [place] % (Auto) 5.5 Eos % (Auto) 0.3 Baso % (Auto) 0.2 Absolute Neuts (auto) 11.6 H Absolute Lymphs (auto) 1.29 Nucleated RBC % 0 Sodium 139 Potassium 3.5 Chloride 104 Carbon Dioxide 18.0 L Anion Gap 18 H BUN 13 Creatinine 0.74 Estim Creat Clear Calc 85.14 Est GFR (MDRD) Non-Af 99 BUN/Creatinine Ratio 16.9 Glucose 135 H Calcium 9.1 Total Bilirubin 0.91 AST 20 ALT 16 Alkaline Phosphatase 98 Total Protein 6.3 Albumin 4.0 Globulin 2.3 Albumin/Globulin Ratio 1.8 Lipase 17 Urine Color Straw Urine Clarity Clear Urine pH 5.0 Ur Specific [place] 1.020 Urine Protein 30 H Urine Glucose (UA) Normal Urine Ketones 150 A* Urine Occult Blood Negative Urine Nitrite Negative Urine Bilirubin Negative Urine Urobilinogen Normal Ur Leukocyte Esterase 25 H Urine RBC 0-5 SEEN Urine WBC 0-5 SEEN Ur Squamous Epith Cells 0-5 SEEN Urine Bacteria 0 SEEN Hyaline Casts 0-5 SEEN Fine Granular Casts 0-5 SEEN Urine Mucus 0 SEEN Urine Test Negative Urine Opiates Screen NEGATIVE U Buprenorphine Qual NEGATIVE Ur Oxycodone Screen NEGATIVE Urine Methadone Screen NEGATIVE Urine Fentanyl Screen NEGATIVE Ur Barbiturates Screen NEGATIVE Ur Phencyclidine Scrn NEGATIVE Ur Amphetamines Screen PRESUMPTIVE POSITIVE U Benzodiazepines Scrn NEGATIVE Urine Cocaine Screen NEGATIVE U Cannabinoids Screen PRESUMPTIVE POSITIVE Ethyl Alcohol < 10.1 Radiography Diagnostic Testing: Clinical Impression(s) from Imaging Studies Abdomen/Pelvis CT 11/26/24 16:20 IMPRESSION: No acute abdominopelvic finding. Reading Location: [facility] Brain CT 11/26/24 16:20 IMPRESSION: 1. No acute intracranial hemorrhage or herniation. 2. Severe patchy and confluent white matter disease, discordant with patient age. Follow-up MRI head is recommended for further evaluation if not recently performed. Reading Location: [facility] Discharge Plan Disposition Disposition: Acute Care Hospital [facility] Discharge Date/Time: 11/26/24 22:09
--- NOTE | 2024-11-26 15:24 | EKG12_ITS ---
Test Reason : HEADACHE Blood Pressure : */* mmHG Vent. Rate : 60 BPM Atrial Rate : 60 BPM P-R Int : 116 ms QRS Dur : 88 ms QT Int : 466 ms P-R-T Axes : 63 62 55 degrees QTcB Int : 466 ms Normal sinus rhythm Minimal voltage criteria for LVH, may be normal variant ( Sokolow-Knott ) Borderline ECG Confirmed by Mick Michael ([id number]), assignment desk editor ZEINA FONTAINE ([id number]) on 11/27/2024 11:16:31 AM Referred By: HEMANTH Confirmed By: Mick Michael
[2024-11-26] MEDS: Haloperidol Lactate 5 MG/ML Vial 2 MG IV (15:30)
[2024-11-26] MEDS: 0.9% Normal Saline (1000mL) 1,000 ML 999 ML IV ×2 (15:34→20:59)
[2024-11-26 16:17] LABS: Absolute Lymphocyte Count 1.29 X10^3/uL (0.83-4.51); Absolute Neutrophil Count 11.6 X10^3/uL (2.0-7.7); Basophil# 0.03 X10^3/uL; Basophil% 0.2 % (0-1); Eosinophil# 0.04 X10^3/uL; Eosinophils% 0.3 % (0-5); Hemoglobin 13.9 g/dL (12.0-15.0); Lymphocyte # 1.29 X10^3/ul (0.83-4.51); Lymphocyte % 9.4 % (19-41); Mean Corp Hgb Conc 33.1 g/dL (32-36); Mean Corpuscular Hgb 33.1 pg (27.0-32.0); Mean Platelet Vol. 10.4 fl (6.2-12.0); Monocyte# 0.76 X10^3/uL; Monocyte% 5.5 % (0-10); NRBC Flagged by Analyzer 0 % (0-5); Neutrophil # 11.59 X10^3/uL (2.7-7.7); Platelet Count 202 K/mm3 (150-450); RBC Distribution Width CV 12.2 % (11.6-14.6); RBC Distribution Width SD 44.8 fl (35.1-43.9); White Blood Count 13.8 K/mm3 (4.4-11.0)
--- NOTE | 2024-11-26 16:20 | CT_ITS ---
PROCEDURE: ABDOMEN/PELVIS W IV CONT ONLY 11/26/2024 REASON FOR EXAM: NAUSEA, VOMITING TECHNIQUE: Abdomen and pelvis CT with intravenous contrast. Coronal and Sagittal reconstruction series were provided. PATIENT PREPARATION: Per protocol ORAL CONTRAST TYPE: None. CONTRAST: Isovue 370 VOLUME: 100 mL One or more dose reduction techniques were used (e.g., Automated exposure control, adjustment of the mA and/or kV according to patient size, use of iterative reconstruction technique. RADIATION DOSE SUMMARY: CTDlvol: 24 mGy DLP: 700 mGycm COMPARISON: CT abdomen pelvis 08/03/2023. FINDINGS: Lung bases: Unremarkable. The heart is normal in size. Liver: The liver is normal in size without suspicious hepatic mass. The major portal veins are patent. No biliary ductal dilation. Gallbladder: No radiopaque stones within the gallbladder. Spleen: Normal in size. Pancreas: Unremarkable. Adrenals: No adrenal mass. Kidneys: No hydronephrosis or nephrolithiasis. Bladder: Mildly distended and unremarkable. Reproductive Organs: Normal uterine size and contour. Ovaries are unremarkable. Bowel: The bowel loops are nondilated. No ascites or pneumoperitoneum. Normal appendix. Lymph nodes: No suspicious lymphadenopathy. Vasculature: Moderate mixed plaque of the aortoiliac vessels. Bones: Prior posterior instrumentation and spinal fixation of the lumbar spine with unchanged chronic grade 1 anterolisthesis of L4 onto L5 and retrolisthesis of L5 onto S1. CT/Abdomen/Pelvis W IV Cont ONLY IMPRESSION: No acute abdominopelvic finding. Reading Location: [id number]
--- NOTE | 2024-11-26 16:20 | CT_ITS ---
EXAM: BRAIN/HEAD WITHOUT CONTRAST CLINICAL HISTORY: 49 y/o F with PIERCE, NAUSEA AND VOMITING. History of hypertension and carotid artery aneurysm. COMPARISON: None. TECHNIQUE: Routine CT imaging of the head without IV contrast. Additional multiplanar reformats were obtained. Dose reduction techniques were used including intermediate exposure control (AEC),iterative reconstruction technique, and/or mA and/or KV dose adjustments based on patient's size. FINDINGS: No acute intracranial hemorrhage or herniation. Severe patchy and confluent supratentorial white matter hypodensities, discordant with patient age. Additional periventricular edema with normal-sized ventricles. Hypodensities within the bilateral centrum semiovale. Aerated secretions within the sphenoid sinus. The orbits, visualized paranasal sinuses and mastoids are otherwise unremarkable. No acute calvarial fracture or scalp hematoma. CT/Brain/Head without Contrast IMPRESSION: 1. No acute intracranial hemorrhage or herniation. 2. Severe patchy and confluent white matter disease, discordant with patient ag e. Follow-up MRI head is recommended for further evaluation if not recently performed. Reading Location: [id number]
[2024-11-26 16:50] LABS: ALB/GLOB Ratio 1.8 RATIO (0.9-2.4); AST(SGOT) 20 U/L (<=31); Alanine Aminotransfer ALT/SGPT 16 U/L (<=34); Alkaline Phosphatase 98 U/L (35-104); Anion Gap 18 (5-15); BUN 13 mg/dL (4-19); BUN/Creat Ratio 16.9 RATIO (10-20); Calcium,Total 9.1 mg/dL (7.6-11.0); Chloride 104 mmol/L (98-108); Creatinine, Serum 0.74 mg/dL (0.70-1.20); EST Glomerular Filtration Rate 99 (>60); Estimated Creatinine Clearance 85.14 ml/min (50-250); Globulin 2.3 g/dL (2.2-4.2); Glucose 135 mg/dL (70-99); Lipase 17 U/L (13-75); Potassium 3.5 mmol/L (3.3-5.1); Protein, Total 6.3 g/dL (5.9-8.4); Sodium Level 139 mmol/L (133-145); Total Bilirubin 0.91 mg/dL (0.00-1.30)
[2024-11-26 17:03] LABS: Alcohol, Blood (Medical)-Serum < 10.1 mg/dL (<=10.0)
[2024-11-26 18:15] LABS: Bacteria 0 SEEN /hpf (None Seen); Mucous, Urine 0 SEEN /hpf (<or=2+)
[2024-11-26 18:30] LABS: Color, Urine Straw (Yellow); Glucose, Dipstick Normal (Normal); Leukocyte Esterase-Dipstick 25 /ul (Negative); Nitrite-Dipstick Negative (Negative); Occult Blood-Urine Negative /ul (Negative); Protein-Dipstick 30 mg/dl (Negative); Urine Bilirubin Dipstick Negative (Negative); Urine Clarity Clear (Clear); Urine Urobilinogen Normal (Normal)
[2024-11-26 18:44] LABS: Internal QC Validated? YES +Cl - CLEAR BKGD; Ketone-Dipstick 150 mg/dl (Negative)
[2024-11-26 18:45] LABS: Pregnancy, Urine Negative Negative; Record Kit Lot#,Urine Preg 947241
[2024-11-26 18:56] LABS: Fine Granular Cast- Urine 0-5 SEEN /lpf (0-5); Hyaline Cast 0-5 SEEN /lpf (0-5); Red Blood Cells-Urine 0-5 SEEN /hpf (0-5); Squamous Epithelial Cells - UA 0-5 SEEN /hpf (5-10); White Blood Cells 0-5 SEEN /hpf (0-5)
[2024-11-26 19:12] LABS: Amphetamine Urine PRESUMPTIVE POSITIVE (<1000 ng/mL); Barbiturate Urine NEGATIVE (< 200 ng/mL); Benzodiazepine Urine NEGATIVE (< 200 ng/mL); Buprenorphine Urine NEGATIVE (< 200 ng/mL); Cocaine Urine NEGATIVE (< 300 ng/mL); Fentanyl, Urine NEGATIVE; Methadone Urine NEGATIVE (< 300 ng/mL); Opiates Urine NEGATIVE (< 300 ng/mL); Oxycodone, Urine NEGATIVE (< 100 ng/mL); PCP Urine NEGATIVE (< 25 ng/mL); THC Urine PRESUMPTIVE POSITIVE (< 50 ng/mL)
[2024-11-26] MEDS: proCHLORPERazine 10 MG/2 ML Vial 5 MG IV (19:25)
[2024-11-26] MEDS: Metoclopramide 10 MG/2 ML Vial 5 MG IV (20:59)
--- NOTE | 2024-11-26 21:46 | PCM.HP.STD ---
HPI - General General Date of Admission: 11/26/24 Date of Service: 11/26/24 Chief Complaint: Intractable nausea and vomiting HPI Narrative BERNIE YI, is a 49 F who presents to the emergency room with a chief complaint of nausea and vomiting. Onset of symptoms began today at approximately 1:00 this afternoon. Patient denies any recent travel denies any sick contacts or eating out recently. She states he feels as if things are spinning and after observation in the emergency room she continued to have severe nausea with vomiting. CT scan of the abdomen pelvis was negative for acute findings. No acute findings were seen on CT head. Patient will be admitted for observation and treated with IV fluids antiemetic therapy. Talk screen was presumptively positive for amphetamine and cannabinoid. FORMERLY [facility], [facility]1983 Medical History Aneurysm of carotid artery ADD (attention deficit disorder) Hypertension Home Medications ?Medication ?Instructions ?Recorded ?Last Taken ?Type celecoxib 200 mg capsule 200 mg PO DAILY 11/26/24 Unknown History lidocaine 5 % topical patch 2 patch topical DAILY 11/26/24 Unknown History lisdexamfetamine 50 mg capsule 50 mg PO DAILY 11/26/24 Unknown History (Vyvanse) prochlorperazine maleate 5 mg 5 mg PO TID PRN nausea and 11/26/24 Unknown Rx tablet (Compazine) vomiting 7 days #20 tabs Allergy/AdvReac Type Severity Reaction Status Date / Time morphine Allergy Hives Verified 11/26/24 14:29 nitrofurantoin (From Allergy Hives Verified 11/26/24 14:29 Macrobid) Surgical History History of back surgery Social History Smoking Status: Current every day smoker tobacco type: cigarettes ROS Constitutional Constitutional: Denies chills or fever(s) Eyes Eyes: Reports irritation ENT HEENT: Denies abnormal hearing Cardiovascular Cardiovascular: Denies chest pain Respiratory/Chest Respiratory/Chest: Denies shortness of breath at rest Gastrointestinal Gastrointestinal: Reports diarrhea, nausea and vomiting; Denies abdominal pain Genitourinary Genitourinary: Denies dysuria Musculoskeletal Musculoskeletal: Denies back pain Integumentary Integumentary: Denies dry skin Neurologic Neurologic: Denies abnormal speech Psychiatric Psychiatric: Denies anxiety Vital Signs Vital Signs Vital Signs: 11/26/24 14:29 11/26/24 17:09 11/26/24 19:00 Temperature 99.6 F H Temperature Source Oral Pulse Rate 76 79 79 Respiratory Rate 20 H 18 14 Blood Pressure 145/72 H 142/75 H 135/58 H Blood Pressure Mean 96 97 83 Pulse Ox 100 97 98 Oxygen Delivery Method Room Air Room Air 11/26/24 20:28 11/26/24 21:00 Temperature 98.9 F Temperature Source Pulse Rate 68 76 Respiratory Rate 14 16 Blood Pressure 124/59 H 176/63 H Blood Pressure Mean 80 100 Pulse Ox 100 100 Oxygen Delivery Method Room Air Weight Weight: 152 lb 8.958 oz Body Mass Index (BMI) 24.6 Physical Exam Const oriented x3 General Appearance: cooperative HEENT normocephalic and head/scalp atraumatic Eyes PERRL Neck no lymphadenopathy Lymph Lymphatic: no lymphadenopathy noted Resp normal respiratory effort, normal air movement and clear to auscultation bilaterally Cardio regular rate, regular rhythm, S1 normal heart sound, S2 normal heart sound and no murmurs GI non-distended Palpation: tender other (Generalized); Negative for guarding or rebound tenderness present Extremity normal capillary refill Skin General Skin Exam: no breakdown Neuro no focal motor deficits and no sensory deficits noted Psych thought process normal Results Lab / Micro Data 11/26/24 15:59 11/26/24 15:59 Labs: Laboratory Results - last 24 hr 11/26/24 15:59: WBC 13.8 H, RBC 4.20, Hgb 13.9, Hct 42.0, MCV 100.0 H, MCH 33.1 H, MCHC 33.1, RDW Std Deviation 44.8 H, RDW Coeff of Bishop 12.2, Plt Count 202, MPV 10.4, Immature Gran % (Auto) 0.600, Neut % (Auto) 84.0 H, Lymph % (Auto) 9.4 L, [place] % (Auto) 5.5, Eos % (Auto) 0.3, Baso % (Auto) 0.2, Absolute Neuts (auto) 11.6 H, Absolute Lymphs (auto) 1.29, Nucleated RBC % 0, Sodium 139, Potassium 3.5, Chloride 104, Carbon Dioxide 18.0 L, Anion Gap 18 H, BUN 13, Creatinine 0.74, Estim Creat Clear Calc 85.14, Est GFR (MDRD) Non-Af 99, BUN/Creatinine Ratio 16.9, Glucose 135 H, Calcium 9.1, Total Bilirubin 0.91, AST 20, ALT 16, Alkaline Phosphatase 98, Total Protein 6.3, Albumin 4.0, Globulin 2.3, Albumin/Globulin Ratio 1.8, Lipase 17 11/26/24 16:20: Ethyl Alcohol < 10.1 11/26/24 17:56: Urine Color Straw, Urine Clarity Clear, Urine pH 5.0, Ur Specific [place] 1.020, Urine Protein 30 H, Urine Glucose (UA) Normal, Urine Ketones 150 A*, Urine Occult Blood Negative, Urine Nitrite Negative, Urine Bilirubin Negative, Urine Urobilinogen Normal, Ur Leukocyte Esterase 25 H, Urine RBC 0-5 SEEN, Urine WBC 0-5 SEEN, Ur Squamous Epith Cells 0-5 SEEN, Urine Bacteria 0 SEEN, Hyaline Casts 0-5 SEEN, Fine Granular Casts 0-5 SEEN, Urine Mucus 0 SEEN, Urine Test Negative, Urine Opiates Screen NEGATIVE, U Buprenorphine Qual NEGATIVE, Ur Oxycodone Screen NEGATIVE, Urine Methadone Screen NEGATIVE, Urine Fentanyl Screen NEGATIVE, Ur Barbiturates Screen NEGATIVE, Ur Phencyclidine Scrn NEGATIVE, Ur Amphetamines Screen PRESUMPTIVE POSITIVE, U Benzodiazepines Scrn NEGATIVE, Urine Cocaine Screen NEGATIVE, U Cannabinoids Screen PRESUMPTIVE POSITIVE Imaging Radiology Impression Abdomen/Pelvis CT 11/26/24 16:20 IMPRESSION: No acute abdominopelvic finding. Reading Location: [facility] Brain CT 11/26/24 16:20 IMPRESSION: 1. No acute intracranial hemorrhage or herniation. 2. Severe patchy and confluent white matter disease, discordant with patient age. Follow-up MRI head is recommended for further evaluation if not recently performed. Reading Location: [facility] Assessment & Plan Assessment/Plan (1) Intractable nausea and vomiting: PLAN: Plan 1. Intractable nausea and vomiting?admit patient to medical surgical floor for observation, IV normal saline at a rate of 125 cc/h, Zofran 4 mg IV every 4 hours as needed nausea, will also add as needed Compazine. Repeat CBC BMP in the a.m. 2. DVT prophylaxis?patient is somewhat ambulatory and low risk for DVT at this time.
[2024-11-26] MEDS: 0.9% Normal Saline (1000mL) 1,000 ML 125 ML IV (23:03)
[2024-11-27 04:30] VITALS: BP 136/68; PULSE 92; RESP 16; TEMP 36.9; O2SAT 98
[2024-11-27] MEDS: 0.9% Normal Saline (1000mL) 1,000 ML 125 ML IV ×3 (06:56→23:51)
[2024-11-27 07:21] LABS: Absolute Neutrophil Count 6.5 X10^3/uL (2.0-7.7); Basophil# 0.01 X10^3/uL; Basophil% 0.1 % (0-1); Hematocrit 34.7 % (37-47); Hemoglobin 11.4 g/dL (12.0-15.0); Lymphocyte % 16.1 % (19-41); Mean Corp Hgb Conc 32.9 g/dL (32-36); Mean Corpuscular Hgb 32.7 pg (27.0-32.0); Mean Corpuscular Volume 99.4 fL (81-99); Mean Platelet Vol. 10.4 fl (6.2-12.0); Monocyte# 0.76 X10^3/uL; Monocyte% 8.7 % (0-10); NRBC Flagged by Analyzer 0 % (0-5); Neutrophil # 6.51 X10^3/uL (2.7-7.7); Neutrophil % 74.9 % (47-70); Platelet Count 220 K/mm3 (150-450); RBC Distribution Width CV 12.2 % (11.6-14.6); RBC Distribution Width SD 44.5 fl (35.1-43.9); Red Blood Count 3.49 M/mm3 (4.2-5.4); White Blood Count 8.7 K/mm3 (4.4-11.0)
[2024-11-27 07:42] LABS: AST(SGOT) 14 U/L (<=31); Alanine Aminotransfer ALT/SGPT 14 U/L (<=34); Albumin, Serum 3.8 g/dL (3.5-5.0); Alkaline Phosphatase 78 U/L (35-104); Anion Gap 13 (5-15); BUN 7 mg/dL (4-19); BUN/Creat Ratio 12.7 RATIO (10-20); Calcium,Total 8.5 mg/dL (7.6-11.0); Carbon Dioxide 19.8 mmol/L (21.0-32.0); Chloride 108 mmol/L (98-108); Creatinine, Serum 0.54 mg/dL (0.70-1.20); EST Glomerular Filtration Rate 112 (>60); Estimated Creatinine Clearance 112.15 ml/min (50-250); Globulin 1.9 g/dL (2.2-4.2); Glucose 77 mg/dL (70-99); Potassium 3.7 mmol/L (3.3-5.1); Protein, Total 5.7 g/dL (5.9-8.4); Sodium Level 141 mmol/L (133-145); Total Bilirubin 0.63 mg/dL (0.00-1.30)
--- NOTE | 2024-11-27 07:42 | PN.HOSP_ITS ---
Reason for Visit Reason for Visit: Diagnoses Nausea with vomiting, unspecified (11/26/24) Subjective Subjective Still with signifcant dizziness with minimal head movements. Objective Data Objective Data Vital Signs: Vital Signs Temp Pulse Resp BP Pulse Ox O2 Del Method 36.9 C 92 16 136/68 H 98 Room Air 11/27/24 04:30 11/27/24 04:30 11/27/24 04:30 11/27/24 04:30 11/27/24 04:30 11/27/24 04:30 Oxygen Delivery Method Room Air Weight: 57.5 kg Body Mass Index (BMI) 21.1 Intake & Output: Intake and Output for Last 24 Hours 11/25/24 11/26/24 11/27/24 23:59 23:59 23:59 Intake Total 1999 985.42 / 985.42 Balance 1999 985.42 / 985.42 Lab / Micro Data 11/27/24 06:46 11/27/24 06:46 Labs: Laboratory Results - last 24 hr 11/26/24 15:59: WBC 13.8 H, RBC 4.20, Hgb 13.9, Hct 42.0, MCV 100.0 H, MCH 33.1 H, MCHC 33.1, RDW Std Deviation 44.8 H, RDW Coeff of [place] 12.2, Plt Count 202, MPV 10.4, Immature Gran % (Auto) 0.600, Neut % (Auto) 84.0 H, Lymph % (Auto) 9.4 L, [place] % (Auto) 5.5, Eos % (Auto) 0.3, Baso % (Auto) 0.2, Absolute Neuts (auto) 11.6 H, Absolute Lymphs (auto) 1.29, Nucleated RBC % 0, Sodium 139, Potassium 3.5, Chloride 104, Carbon Dioxide 18.0 L, Anion Gap 18 H, BUN 13, Creatinine 0.74, Estim Creat Clear Calc 85.14, Est GFR (MDRD) Non-Af 99, BUN/Creatinine Ratio 16.9, Glucose 135 H, Calcium 9.1, Total Bilirubin 0.91, AST 20, ALT 16, Alkaline Phosphatase 98, Total Protein 6.3, Albumin 4.0, Globulin 2.3, Albumin/Globulin Ratio 1.8, Lipase 17 11/26/24 16:20: Ethyl Alcohol < 10.1 11/26/24 17:56: Urine Color Straw, Urine Clarity Clear, Urine pH 5.0, Ur Specific [place] 1.020, Urine Protein 30 H, Urine Glucose (UA) Normal, Urine Ketones 150 A*, Urine Occult Blood Negative, Urine Nitrite Negative, Urine Bilirubin Negative, Urine Urobilinogen Normal, Ur Leukocyte Esterase 25 H, Urine RBC 0-5 SEEN, Urine WBC 0-5 SEEN, Ur Squamous Epith Cells 0-5 SEEN, Urine Bacteria 0 SEEN, Hyaline Casts 0-5 SEEN, Fine Granular Casts 0-5 SEEN, Urine Mucus 0 SEEN, Urine Test Negative, Urine Opiates Screen NEGATIVE, U Buprenorphine Qual NEGATIVE, Ur Oxycodone Screen NEGATIVE, Urine Methadone Screen NEGATIVE, Urine Fentanyl Screen NEGATIVE, Ur Barbiturates Screen NEGATIVE, Ur Phencyclidine Scrn NEGATIVE, Ur Amphetamines Screen PRESUMPTIVE POSITIVE, U Benzodiazepines Scrn NEGATIVE, Urine Cocaine Screen NEGATIVE, U Cannabinoids Screen PRESUMPTIVE POSITIVE 11/27/24 06:46: WBC 8.7, RBC 3.49 L, Hgb 11.4 L, Hct 34.7 L, MCV 99.4 H, MCH 32.7 H, MCHC 32.9, RDW Std Deviation 44.5 H, RDW Coeff of Bishop 12.2, Plt Count 220, MPV 10.4, Immature Gran % (Auto) 0.200, Neut % (Auto) 74.9 H, Lymph % (Auto) 16.1 L, [place] % (Auto) 8.7, Eos % (Auto) 0.0, Baso % (Auto) 0.1, Absolute Neuts (auto) 6.5, Absolute Lymphs (auto) 1.40, Nucleated RBC % 0, Sodium 141, Potassium 3.7, Chloride 108, Carbon Dioxide 19.8 L, Anion Gap 13, BUN 7, C reatinine 0.54 L, Estim Creat Clear Calc 112.15, Est GFR (MDRD) Non-Af 112, BUN/Creatinine Ratio 12.7, Glucose 77, Calcium 8.5, Total Bilirubin 0.63, AST 14, ALT 14, Alkaline Phosphatase 78, Total Protein 5.7 L, Albumin 3.8, Globulin 1.9 L, Albumin/Globulin Ratio 2.0 Radiography Diagnostic Testing: Radiology Impression Abdomen/Pelvis CT 11/26/24 16:20 IMPRESSION: No acute abdominopelvic finding. Reading Location: [facility] Brain CT 11/26/24 16:20 IMPRESSION: 1. No acute intracranial hemorrhage or herniation. 2. Severe patchy and confluent white matter disease, discordant with patient age. Follow-up MRI head is recommended for further evaluation if not recently performed. Reading Location: [facility] Physical Exam Const alert and no apparent distress HEENT head/scalp atraumatic and moist oral mucous membranes Eyes Eyes Narrative: left lateral nystagmus that incited vertigo. Resp normal respiratory effort and no retractions Neuro moves all extremities Sensorium / Orientation: awake and alert Speech: speech normal Psych affect normal Assessment & Plan Assessment/Plan (1) Vertigo: PLAN: supsect BPPV. PRN meclizine. reassurance provided to the patient that this will be self-limited. (2) Intractable nausea and vomiting: PLAN: 2/2 vertigo. (3) White matter changes: PLAN: unclear significance. Will need an MRI, but this can be done as oupt, unless her symptoms are refractory. Charges/Coding Visit Charges Inpatient E&M: 24868 Subs Hosp L2
[2024-11-27 10:00] VITALS: BP 147/70; PULSE 85; RESP 16; TEMP 36.9; O2SAT 99
[2024-11-27] MEDS: Meclizine HCl 25 MG Tablet PO (14:47)
[2024-11-27 15:00] VITALS: BP 128/62; PULSE 84; RESP 16; TEMP 36.9; O2SAT 97
[2024-11-27 19:55] VITALS: BP 134/72; PULSE 71; RESP 16; TEMP 36.8; O2SAT 99
[2024-11-28 02:12] VITALS: BP 136/109; PULSE 63; RESP 15; TEMP 36.9; O2SAT 100
[2024-11-28] MEDS: 0.9% Normal Saline (1000mL) 1,000 ML 125 ML IV (07:50)
[2024-11-28 08:02] VITALS: BP 133/59; PULSE 76; RESP 18; TEMP 36.8; O2SAT 98
[2024-11-28] MEDS: Meclizine HCl 25 MG Tablet PO (08:02)
--- NOTE | 2024-11-28 11:37 | PCM.DC.SUM ---
Providers Date of Admission: 11/26/24 Primary Care Physician: RICHIE HUNT Reason For Visit: INTRACTABLE NAUSEA & VOMITING Diagnosis Discharge Diagnosis (1) Vertigo: Status: Acute Code(s): R42 - Dizziness and giddiness Plan: supsect BPPV. PRN meclizine. reassurance provided to the patient that this will be self-limited. (2) Intractable nausea and vomiting: Status: Acute Code(s): R11.2 - Nausea with vomiting, unspecified Plan: 2/2 vertigo. (3) White matter changes: Status: Acute Plan: unclear significance. Will need an MRI, but this can be done as oupt, unless her symptoms are refractory. Medications at Discharge Home Medications celecoxib 200 mg capsule 200 mg PO DAILY 11/26/24 lisdexamfetamine 50 mg capsule (Vyvanse) 50 mg PO DAILY 11/26/24 prochlorperazine maleate 5 mg tablet (Compazine) 5 mg PO TID PRN nausea and vomiting 7 days #20 tabs 11/26/24 meclizine 25 mg tablet (Travel-Ease (meclizine)) 25 mg PO TID PRN PRN Vertigo #15 tabs 11/28/24 Hospital Course Operations None Procedures None Summary of Care Provided Hospital Course: Patient presents with acute onset of dizziness as well as nausea and vomiting. Patient was so dizzy that she can even turn her head at 1 point. That is steadily improved. Her symptoms were consistent with benign paroxysmal positional vertigo. Patient had ordered for meclizine and overall has improved steadily. Patient still feels dizzy but she has been able to stand to go to the bathroom. Patient will be discharged home with as needed meclizine and recommend that patient follow-up with her primary care doctor still have ongoing symptoms see if she may need vestibular rehab. In the interim advised her to look up videos in regards to the Liyah maneuver on YouTube. Weight / BMI Weight Weight: 57.5 kg Body Mass Index (BMI) 21.1 ABG / Lab / Microbiology Data 11/27/24 06:46 11/27/24 06:46 D/C Instructions Discharge Diet: No restrictions DC O2, CPAP, BIPAP Needs Home O2 Discharge instructions: No Meaningful Use Info Meaningful Use Meaningful Use Diagnoses (Choose all that apply): None applicable Ischemic Stroke Statin Dosing Therapy Reference: STATIN DOSE THERAPY REFERENCE: * Patients > 75 years receive moderate or high dose statin therapy. * Patients 75 years or YOUNGER should receive HIGH intensity statin dose unless contraindicated. You will be required to document reason for non-treatment if statin daily dose does not meet guidelines. HIGH DOSE STATIN THERAPY DAILY Atorvastatin > than or = to 40 mg Rosuvastatin > than or = to 20 mg Amlodipine + Atorvastatin > than or = to 2.5/40 mg Ezetimibe + Simvastatin 10/80 mg Simvastatin 80mg Discharge Plan Admission Admit Date/Time: 11/26/24 21:58 Primary Reason for Your Visit: Vertigo Attending Provider: Sanju Bautista Primary Care Provider: RICHIE HUNT Consulting Providers: Avery Mace Instructions Patient Instructions: ED Vomiting (Adult) Additional Instructions / Restrictions: Thank you for trusting us with your care today! Your labs and images are reassuring. Please take Tylenol (2 pills, 650 mg), ibuprofen (2 pills, 400 mg) every 6 hours as needed for pain and fever control. Please take Compazine as needed for nausea, vomiting, and headache until at home Please return to the emergency department if your symptoms change or worsen. Please follow with your primary care physician for further outpatient evaluation and management. Your nausea vomiting is due to vertigo. Please look up videos on YouTube pertaining to the Liyah maneuver followed by physical therapist or occupational therapist. This is a maneuver to help remove the crystals better within the semicircular canals to help prevent your dizziness. Additionally, your CAT scan showed nonspecific changes. Not consistent with a stroke. Please follow-up your primary care doctor as you may need further testing such as an MRI neurology evaluation. I do not feel that this was contributing to the dizziness, however. Discharge Orders/Prescriptions Prescriptions: New prochlorperazine maleate [Compazine] 5 mg tablet 5 mg PO TID PRN (Reason: nausea and vomiting) 7 Days Qty: 20 0RF meclizine [Travel-Ease (meclizine)] 25 mg Tablet 25 mg PO TID PRN PRN (Reason: Vertigo) Qty: 15 0RF Continued celecoxib 200 mg capsule 200 mg PO DAILY lisdexamfetamine [Vyvanse] 50 mg capsule 50 mg PO DAILY Referrals / Follow Up: RICHIE HUNT [Other] RICHIE HUNT [Other] Disposition Disposition (needs filled in before D/C Order can be placed): Home, Self Care Charges/Coding Visit Charges Inpatient E&M: 10823 Disch Hosp
[2024-11-28 12:21] VITALS: BP 132/85; PULSE 71; RESP 17; TEMP 36.7; O2SAT 100
== END 2024-11-28 12:52 | disposition home or self-care (01) ==
LOC: ED 20:27 → MS3 22:09
PROVIDERS: Admitting Provider Family Medicine; Emergency Provider Emergency Medicine
DX: R42 Dizziness and giddiness (principal); R11.2 Nausea with vomiting, unspecified; I10 Essential (primary) hypertension; F90.9 Attention-deficit hyperactivity disorder, unspecified type; R53.1 Weakness; R51.9 Headache, unspecified; R90.82 White matter disease, unspecified; Z79.899 Other long term (current) drug therapy; F17.210 Nicotine dependence, cigarettes, uncomplicated
CPT/HCPCS: 36415; 70450; 74177; 80053; 80307; 81001; 81025; 82077; 83690; 85025; 93005; 96361; 96374; 96375; 99221; 99285; Q9967; A4216; G0378